=== PATIENT | male | born 1960 | race Caucasian/White ===

== ENCOUNTER 2017-07-13 06:23 | Day surgery (SDC) | payer BC ==
[2017-07-08 15:34] VITALS: BMI 23.2
[~2017-07-13 06:23] MED LIST: DEXAMETHASONE SOD PHOSPHATE 10 MG/ML 1 ML VIAL IV ONE; HEPARIN SODIUM,PORCINE 5,000 UNIT/ML 1 ML VIAL SQ ONE; HYDROmorphone 0.5 MG/0.5 ML SYRINGE IVP PRN; MIDAZOLAM 2 MG/2 ML VIAL IV PRN; ONDANSETRON 4 MG/2 ML VIAL IVP ONE; ceFAZolin IN SWFI 2 GM/20 ML SYRINGE IVP ONE
[2017-07-13] MEDS ORDERED: MORPHINE SULFATE 4 MG/ML SYRINGE IVP PRN ×2 (06:26→09:31)
[2017-07-13] MEDS: LACTATED RINGERS 1,000 ML IV SCH ×2 (07:16→07:17)
[2017-07-13] MEDS ORDERED: LIDOCAINE 1% 20 ML VIAL (10MG/ML) FOR IV START INTRADERMA ONE (07:17)
[2017-07-13] MEDS ORDERED: LIDOCAINE 1% 20 ML VIAL (10MG/ML) FOR IV START INTRAPLEUR ONE (07:18)
[2017-07-13] MEDS ORDERED: KETOROLAC 30 MG/ML 1 ML VIAL ONE (07:53)
[2017-07-13] MEDS ORDERED: MIDAZOLAM 2 MG/2 ML VIAL ONE (07:53)
[2017-07-13] MEDS ORDERED: LIDOCAINE 1% INJ 10MG/ML (20 ML MDV) ONE (07:53)
[2017-07-13] MEDS ORDERED: PROPOFOL 10 MG/ML 20 ML VIAL IV ONE (07:53)
[2017-07-13] MEDS ORDERED: GLYCOPYRROLATE 0.2 MG/ML 2 ML VIAL ONE (07:53)
[2017-07-13] MEDS ORDERED: SUCCINYLCHOLINE CHLORIDE 100 MG/5 ML SYR IV ONE (07:53)
[2017-07-13] MEDS ORDERED: NEOSTIGMINE 1 MG/ML 10 ML VIAL ONE (07:53)
[2017-07-13] MEDS ORDERED: ROCURONIUM BROMIDE 10 MG/ML 10 ML VIAL IV ONE (07:53)
[2017-07-13] MEDS ORDERED: fentaNYL (PF) 50 MCG/ML 2 ML AMP ONE (07:53)
[2017-07-13] MEDS ORDERED: HYDROmorphone (PF) 1 MG/ML ONE (07:53)
[2017-07-13] MEDS ORDERED: BUPIVACAINE (PF) 0.25% 30 ML VIAL SQ ONE ×2 (08:18)
[2017-07-13] MEDS ORDERED: LACTATED RINGERS 1,000 ML IV ONE ×3 (08:38)
[2017-07-13] MEDS ORDERED: HYDROcodone/APAP 5-325MG 1 EACH TAB PO PRN (09:31)
[2017-07-13] MEDS ORDERED: NALOXONE 0.4 MG/ML 1 ML VIAL IV PRN (09:31)
--- NOTE | 2017-07-13 09:34 | P.OP ---
Date of Procedure: 07/13/17 Procedure(s) Performed: PREOPERATIVE DIAGNOSIS: Right inguinal hernia POSTOPERATIVE DIAGNOSIS: Same PROCEDURE: Laparoscopic repair right inguinal hernia with the da [place] robot assistance with mesh SURGEON: Harris EBL: Minimal ANESTHESIA: General COMPLICATIONS: None OPERATIVE PROCEDURE: Patient was placed in the operating table in the supine position. The patient was placed under general anesthesia. The patient was then placed in lithotomy. The abdomen was prepped and draped in usual sterile fashion. A small curvilinear supraumbilical incision was made. The fascia was retracted anteriorly with Quincy forceps. The Veress needle was inserted. The saline drop test was normal. Insufflation took place to 15 mmHg. A 12 mm trocar was then inserted. 2 additional 8 mm trochars were placed in the right upper quadrant and left upper quadrant under visualization. The robotic arms were then brought in and docked into place. The fenestrated bipolar was used in the left arm and the laparoscopic izabela was utilized in the right arm. A 30 12 mm scope was used in the up position. The peritoneal cavity was inspected. The patient had a right direct inguinal hernia with no visible hernia on the left side. The peritoneum was incised in a horizontal fashion cephalad to the internal inguinal ring. Following that careful dissection of the preperitoneal space took place. This took place using electrocautery, sharp dissection but primarily blunt dissection. Visualization of the pubic tubercle and Dex's ligament took place medially. Full dissection took place laterally as well. The patient's hernia was small to moderate in size. The hernia sac was fully dissected. Once we had adequate space the 15 x 10 progrip mesh was advanced into the preperitoneal space and flattened out appropriately to cover all potential hernia sites. No sutures were used. The peritoneal defect was then closed using a locking 2-0 VLok suture. A single small defect in the peritoneum inferiorly was repaired using a dpxbkh-jp-lwjad 3-0 Vicryl stitch. The pneumoperitoneum was then evacuated. The fascia at the 12 mm site was closed using an 0 Vicryl ykiqyx-tj-ackjq suture. The skin of all 3 sites was closed using a 4-0 Monocryl stitch. Steri-Strips and sterile dressings were applied. DISPOSITION: Stable to recovery room
[2017-07-13 09:44] VITALS: TEMP 97.4
[2017-07-13 09:57] VITALS: RESP 16
[2017-07-13 12:06] VITALS: BP 121/75; PULSE 71
== END 2017-07-13 12:05 | disposition home or self-care (01) ==
LOC: OR 06:23
PROVIDERS: ATTEND Surgery
DX: K40.90 Unilateral inguinal hernia, without obstruction or gangrene, not specified as recurrent (principal); K21.9 Gastro-esophageal reflux disease without esophagitis; M72.0 Palmar fascial fibromatosis [Dupuytren]; G89.4 Chronic pain syndrome; L71.9 Rosacea, unspecified; M21.751 Unequal limb length (acquired), right femur; M19.071 Primary osteoarthritis, right ankle and foot; M19.90 Unspecified osteoarthritis, unspecified site; B35.4 Tinea corporis; F17.210 Nicotine dependence, cigarettes, uncomplicated; Z79.1 Long term (current) use of non-steroidal anti-inflammatories (NSAID); Z79.891 Long term (current) use of opiate analgesic; Z79.899 Other long term (current) drug therapy
CPT/HCPCS: 49650; S2900

== ENCOUNTER 2018-01-12 07:43 | Day surgery (SDC) | payer BC ==
[2018-01-09 10:31] VITALS: BMI 24.3
[~2018-01-12 07:43] MED LIST changes: -DEXAMETHASONE SOD PHOSPHATE 10 MG/ML 1 ML VIAL IV ONE; -HEPARIN SODIUM,PORCINE 5,000 UNIT/ML 1 ML VIAL SQ ONE; -HYDROmorphone 0.5 MG/0.5 ML SYRINGE IVP PRN; +LACTATED RINGERS 1,000 ML IV SCH; -MIDAZOLAM 2 MG/2 ML VIAL IV PRN; -ONDANSETRON 4 MG/2 ML VIAL IVP ONE; -ceFAZolin IN SWFI 2 GM/20 ML SYRINGE IVP ONE
[2018-01-12 08:12] VITALS: TEMP 98
[2018-01-12] MEDS ORDERED: LIDOCAINE 1% 20 ML VIAL (10MG/ML) FOR IV START INTRADERMA ONE (08:27)
[2018-01-12] MEDS ORDERED: PROPOFOL 10 MG/ML 20 ML VIAL IV ONE (09:01)
[2018-01-12] MEDS ORDERED: LIDOCAINE 1% INJ 10MG/ML (20 ML MDV) ONE (09:01)
[2018-01-12 09:33] VITALS: RESP 16
[2018-01-12 09:41] VITALS: PULSE 76
--- NOTE | 2018-01-12 09:41 | P.PCN ---
Date of Procedure: 01/12/18 Procedure(s) Performed: Procedure: Colonoscopy and biopsy. Preoperative diagnosis: Screening for neoplasia. Postoperative diagnosis: 1. Slight prominence the hepatic flexure fold that could represent early polyp, biopsied, but no large polyps or cancer. 2. Left sided diffuse diverticulosis with no evidence of acute diverticulitis or strictures. Preparation: HalfLytely prep. Sedation: Was provided by anesthesia. Brief clinical history: The patient is a 57-year-old male who is scheduled for this evaluation for screening for neoplasia age being his risk factor. He had a prior exam around 7 years ago. The patient denies abdominal pains, change in bowel habits or overt bleeding. History of stomach issues under control PPI. There is no history of anemia. Procedure: With the patient on his left lateral decubitus position and after informed consent and adequate sedation, the perianal area was inspected and it did not show any fissures or fistulas. There were no masses felt on digital rectal examination. The Olympus CFQ 160L video colonoscope was then inserted in the rectum in the usual fashion and advanced to the cecum. There was a slight prominence of a fold around the hepatic flexure that could represent an early polyp which I biopsied, but there were no polyps or tumors. The mucosa appeared healthy. There were multiple diverticular orifices seen scattered on the left side and sigmoid with no evidence of acute diverticulitis or strictures. I retroflexed the endoscope in the rectum before the endoscope was withdrawn. The patient tolerated the procedure well. Plan: The patient was reassured. Discussed dietary measures. I anticipate repeating this exam in 5 years. He will follow up with you as planned.
[2018-01-12 09:56] VITALS: BP 151/99
== END 2018-01-12 10:11 | disposition home or self-care (01) ==
LOC: ORWHC2ENDO 07:43
DX: Z12.11 Encounter for screening for malignant neoplasm of colon (principal); D12.3 Benign neoplasm of transverse colon; K57.30 Diverticulosis of large intestine without perforation or abscess without bleeding; M19.90 Unspecified osteoarthritis, unspecified site; Z87.891 Personal history of nicotine dependence; K21.9 Gastro-esophageal reflux disease without esophagitis; Z79.899 Other long term (current) drug therapy; Z79.891 Long term (current) use of opiate analgesic
CPT/HCPCS: 88305; 45380; J2001; J2704

== ENCOUNTER → 2018-06-16 | Outpatient (CLI) | payer BC ==
[2018-06-16 10:29] LABS: Basophils % (A) 1 %; Eosinophils # (A) 0.1 k/uL (0-0.7); Eosinophils % (A) 2 %; HCT 39.1 % (39.0-53.0); HGB 12.7 gm/dL (13.0-17.5); Lymphocytes # (A) 2.5 k/uL (1.0-4.8); Lymphocytes % (A) 42 %; MCH 27.8 pg (25.0-35.0); MCHC 32.5 g/dL (31.0-37.0); MCV 85.6 fL (80.0-100.0); Mean Platelet Volume 6.5; Monocytes # (A) 0.5 k/uL (0-1.0); Monocytes % (A) 8 %; Neutrophils # (A) 2.7 k/uL (1.3-7.7); Neutrophils % (A) 44 %; Platelet Count 276 k/uL (150-450); RBC 4.57 m/uL (4.30-5.90); RDW 13.3 % (11.5-15.5)
[2018-06-16 17:35] LABS: Hemoglobin A1C 5.4 % (4.0-6.0)
[2018-06-16 17:41] LABS: Albumin 4.3 g/dL (3.80-4.90); Albumin/Globulin Ratio 1.59 (1.60-3.17); Anion Gap 9.3 mmol/L (4.00-12.00); Calcium 9.4 mg/dL (8.7-10.3); Carbon Dioxide 25.7 mmol/L (21.6-31.8); Globulin 2.7 g/dL (1.6-3.3); LDL Cholesterol,Calculated 96.8 mg/dL (0.0-131.0); Potassium 4.6 mmol/L (3.5-5.5); Total Bilirubin 0.3 mg/dL (0.2-1.2); VLDL Calculation 39.2 mg/dL (5.00-40.00)
== END ==
LOC: LABWHC1 09:59
PROVIDERS: ATTEND Family Medicine
DX: I10 Essential (primary) hypertension (principal); Z79.899 Other long term (current) drug therapy
CPT/HCPCS: 36415; 80053; 80061; 83036; 84153; 84443; 85025

== ENCOUNTER → 2018-09-01 | Outpatient (CLI) | payer BC ==
[2018-09-01 16:52] LABS: ALT 56 U/L (10-49); AST 37 U/L (14-35); Albumin/Globulin Ratio 1.68 (1.60-3.17); Alkaline Phosphatase 90 U/L (41-126); Bilirubin, Conjugated <0.20 mg/dL (0.20-0.40); Globulin 2.5 g/dL (1.6-3.3); Total Bilirubin 0.4 mg/dL (0.3-1.2); Total Protein 6.7 g/dL (6.2-8.2)
[2018-09-01 17:21] LABS: Hepatitis A Antibody IgM Non-Reactive (Non-Reactive); Hepatitis B Core IgM Non-Reactive (Non-Reactive)
== END ==
LOC: LABWHC1 09:05
PROVIDERS: ATTEND Family Medicine
DX: I10 Essential (primary) hypertension (principal); Z79.899 Other long term (current) drug therapy
CPT/HCPCS: 36415; 80074; 80076

== ENCOUNTER → 2018-09-21 | Outpatient (CLI) | payer BC ==
--- NOTE | 2018-09-21 13:31 | US ---
EXAMINATION TYPE: US liver DATE OF EXAM: 09/21/2018 COMPARISON: CT from 2009. CLINICAL HISTORY: R74.0 LIVER ENZYMES ELEVATED. EXAM MEASUREMENTS: Liver Length: 13.7 cm Gallbladder Wall: 0.1 cm CBD: 0.2 cm Right Kidney: 9.3 Xx 3.8 x 5.2 cm Pancreas: Obscured by bowel gas Liver: Increased attenuation Gallbladder: small bright echo medial and inferior to gb not in gb Evidence for sonographic Nunez's sign: No CBD: wnl Right Kidney: wnl Pancreas is suboptimally evaluated on images saved secondary to shadowing from overlying bowel gas pe r technologist. Visualized liver is slightly heterogeneous without intrahepatic ductal dilatation. Ev aluation for focal masses is suboptimal due to the heterogeneity. Gallbladder seen without shadowing mobile gallstones. Limited images of right kidney show no gross hydronephrosis. IMPRESSION: Slight heterogeneous hyperechoic appearance of liver could reflect mild diffuse fatty inf iltration or underlying hepatocellular disease. Imaging guided random biopsy for tissue analysis can be performed if desired.
== END | disposition home or self-care (01) ==
LOC: RADUSWWP 08:52
PROVIDERS: ATTEND Family Medicine
DX: R93.2 Abnormal findings on diagnostic imaging of liver and biliary tract (principal); R74.8 Abnormal levels of other serum enzymes
CPT/HCPCS: 76705

== ENCOUNTER 2019-01-12 08:59 | Day surgery (SDC) | payer BC ==
[2019-01-10 10:22] VITALS: BMI 25.0
[~2019-01-12 08:59] MED LIST changes: +LIDOCAINE 1% 20 ML VIAL (10MG/ML) FOR IV START INTRADERMA PRN
[2019-01-12 09:24] VITALS: TEMP 98.1
[2019-01-12] MEDS ORDERED: PROPOFOL 10 MG/ML 20 ML VIAL IV ONE (09:55)
[2019-01-12] MEDS ORDERED: GLYCOPYRROLATE 0.2 MG/ML 2 ML VIAL ONE (09:55)
[2019-01-12] MEDS ORDERED: LIDOCAINE 1% INJ 10MG/ML (20 ML MDV) ONE (09:55)
--- NOTE | 2019-01-12 10:03 | P.GSHP ---
History of Present Illness H&P Date: 01/12/19 Chief Complaint: GERD 58-year-old male with history of GERD symptoms. Lately he has had some nighttime cough. No dysphagia. No pain. Takes omeprazole daily. Past Medical History Past Medical History: GERD/Reflux, Hypertension, Osteoarthritis (OA) Additional Past Medical History / Comment(s): arthritis rt heel History of Any Multi-Drug Resistant Organisms: None Reported Past Surgical History: Hernia Repair, Orthopedic Surgery, Tonsillectomy Additional Past Surgical History / Comment(s): surgery for ORIF fx rt femur- plates removed-screw remains and rt knee, colonoscopy Past Anesthesia/Blood Transfusion Reactions: No Reported Reaction Additional Past Anesthesia/Blood Transfusion Reaction / Comment(s): no hx blood transfusion Smoking Status: Former smoker - Past Family History Mother Family Medical History: No Reported History Medications and Allergies Home Medications Medication Instructions Recorded Confirmed Type Hydrocodone/Acetaminophen [[place] 1 tab PO HS PRN 07/08/17 01/12/19 History 7.5-325] Naproxen Sodium [Aleve] 220 mg PO BID PRN 07/08/17 01/12/19 History Omeprazole [PriLOSEC] 20 mg PO AC-BRKFST 07/08/17 01/12/19 History Cyclobenzaprine [Flexeril] 10 mg PO HS PRN 01/09/18 01/12/19 History Lisinopril 20 mg PO QAM 01/10/19 01/12/19 History Allergies Allergy/AdvReac Type Severity Reaction Status Date / Time No Known Allergies Allergy Verified 01/12/19 09:38 Surgical - Exam Vital Signs Temp Pulse Resp BP Pulse Ox 98.1 F 90 18 124/82 99 01/12/19 09:22 01/12/19 09:22 01/12/19 09:22 01/12/19 09:22 01/12/19 09:22 Physical exam: General: Well-developed, well-nourished HEENT: Normocephalic, sclerae nonicteric Abdomen: Nontender, nondistended Extremities: No edema Neuro: Alert and oriented Assessment and Plan (1) GERD (gastroesophageal reflux disease) Narrative/Plan: Will proceed with upper endoscopy Current Visit: Yes Status: Acute Code(s): K21.9 - GASTRO-ESOPHAGEAL REFLUX DISEASE WITHOUT ESOPHAGITIS SNOMED Code(s): 866263430
--- NOTE | 2019-01-12 10:11 | P.PCN ---
Date of Procedure: 01/12/19 Procedure(s) Performed: Preoperative Dx: GERD, night cough Postoperative Dx: Mild gastritis, small gastric polyps, hiatal hernia Procedure: EGD with Bx Anesthesia: Sedation Endoscopist: Dr. Iglesias Specimens: Antrum, gastric polyp Endoscopic Procedure: The patient was on the endoscopy table in the left decu bitus position. The Olympus gastroscope was inserted into the oropharynx and passed under direct visualization to the region of the third portion of the duodenum. From that point the scope was slowly withdrawn inspecting all surfaces carefully. There were no neoplastic inflammatory or polypoid lesions throughout the duodenum. The pylorus was widely patent. The stomach was carefully inspected. There was mild gastritis present. A biopsy of the antrum took place to rule out H. pylori. Patient was also noted to have small gastric polyps. The largest one was sampled using cold biopsy forceps. Retroflexion revealed a small the moderate sized hiatal hernia. GE junction was present 1.5- 2 cm above the hiatus. The esophagus was then carefully examined. There were no neoplastic inflammatory or polypoid lesions throughout the visualized esophagus. The patient was then taken to the recovery room in stable condition per anesthesia guidelines. Recommendations: Continue antireflux medications. Continue antireflux lifestyle modifications. Options of hiatal hernia will discuss further with the patient.
[2019-01-12 10:35] VITALS: BP 117/85; PULSE 93; RESP 18
== END 2019-01-12 10:51 | disposition home or self-care (01) ==
LOC: ORWHC2ENDO 08:59
PROVIDERS: ATTEND Surgery
DX: K31.7 Polyp of stomach and duodenum (principal); K29.50 Unspecified chronic gastritis without bleeding; K44.9 Diaphragmatic hernia without obstruction or gangrene; K21.9 Gastro-esophageal reflux disease without esophagitis; I10 Essential (primary) hypertension; M19.90 Unspecified osteoarthritis, unspecified site; Z87.891 Personal history of nicotine dependence; Z79.1 Long term (current) use of non-steroidal anti-inflammatories (NSAID); Z79.891 Long term (current) use of opiate analgesic; Z79.899 Other long term (current) drug therapy
CPT/HCPCS: 88305; 43239; J2001; J2704

== ENCOUNTER 2020-02-27 16:54 | Emergency (ER) | payer BC ==
[2020-02-27 17:26] VITALS: BP 108/76; PULSE 102; RESP 17; TEMP 98.4
--- NOTE | 2020-02-27 18:06 | XR ---
EXAMINATION TYPE: XR ankle complete LT DATE OF EXAM: 02/27/2020 COMPARISON: NONE HISTORY: Pain TECHNIQUE: 3 views FINDINGS: There is an Achilles calcaneal spur. Ankle mortise is anatomic. I see no fracture nor dislo cation. IMPRESSION: Calcaneal spurring. No fracture seen.
--- NOTE | 2020-02-27 18:07 | XR ---
EXAMINATION TYPE: XR knee complete LT DATE OF EXAM: 02/27/2020 COMPARISON: NONE HISTORY: Pain TECHNIQUE: 3 views FINDINGS: There is minor spurring on the patella. I see no fracture nor dislocation. Joint spaces are fairly normal. There is no sign of knee joint effusion. IMPRESSION: No acute abnormality of the left knee.
--- NOTE | 2020-02-27 18:38 | ED ---
Lower Extremity Injury HPI - General Chief Complaint: Extremity Injury, Lower Stated Complaint: Ankle injury Time Seen by Provider: 02/27/20 17:28 Source: patient Mode of arrival: wheelchair Limitations: no limitations - History of Present Illness Initial Comments: Patient is 59-year-old male presenting to the emergency department with a chief complaint of left leg pain. Patient states he had his leg sticking out of a cart when the foot caught the ground and he had an external rotation on the left leg. Patient reports most of the pain is located in the left ankle and knee. He denies any numbness or tingling. Does report pain with ambulation. Reports that rest alleviates the pain. States the pain is sharp with inhalation. Denies any numbness or tingling. This occurred about one hour prior to arrival. - Related Data Home Medications Medication Instructions Recorded Confirmed Hydrocodone/Acetaminophen [[place] 1 tab PO HS PRN 07/08/17 01/12/19 7.5-325] Naproxen Sodium [Aleve] 220 mg PO BID PRN 07/08/17 01/12/19 Omeprazole [PriLOSEC] 20 mg PO AC-BRKFST 07/08/17 01/12/19 Cyclobenzaprine [Flexeril] 10 mg PO HS PRN 01/09/18 01/12/19 lisinopriL 20 mg PO QAM 01/10/19 01/12/19 Allergies Allergy/AdvReac Type Severity Reaction Status Date / Time No Known Allergies Allergy Verified 01/12/19 09:38 Review of Systems ROS Statement: Those systems with pertinent positive or pertinent negative responses have been documented in the HPI. ROS Other: All systems not noted in ROS Statement are negative. Past Medical History Past Medical History: GERD/Reflux, Hypertension, Osteoarthritis (OA) Additional Past Medical History / Comment(s): arthritis rt heel History of Any Multi-Drug Resistant Organisms: None Reported Past Surgical History: Hernia Repair, Orthopedic Surgery, Tonsillectomy Additional Past Surgical History / Comment(s): surgery for ORIF fx rt femur- plates removed-screw remains and rt knee, colonoscopy Past Anesthesia/Blood Transfusion Reactions: No Reported Reaction Additional Past Anesthesia/Blood Transfusion Reaction / Comment(s): no hx blood transfusion Past Psychological History: No Psychological Hx Reported Smoking Status: Never smoker Past Alcohol Use History: None Reported Past Drug Use History: None Reported - Past Family History Mother Family Medical History: No Reported History General Exam Limitations: no limitations General appearance: alert, in no apparent distress Head exam: Present: atraumatic, normocephalic, normal inspection Eye exam: Present: normal appearance, PERRL, EOMI Pupils: Present: normal accommodation ENT exam: Present: normal exam, normal oropharynx, mucous membranes moist. Absent: TM's normal bilaterally, normal external ear exam Neck exam: Present: normal inspection, full ROM. Absent: tenderness Respiratory exam: Present: normal lung sounds bilaterally. Absent: respiratory distress, wheezes Cardiovascular Exam: Present: regular rate, normal rhythm, normal heart sounds Extremities exam: Present: normal inspection, full ROM, tenderness (Tenderness along the medial aspect of the left ankle. Also tenderness along the medial aspect of the knee. Negative anterior drawer. Positive Isma with external rotation.), normal capillary refill, other (+2 dorsalis pedis and posterior tibialis bilateral.). Absent: pedal edema, joint swelling, calf tenderness Back exam: Present: normal inspection, full ROM. Absent: tenderness, CVA tenderness (R), CVA tenderness (L) Neurological exam: Present: alert, oriented X3 Psychiatric exam: Present: normal affect, normal mood Skin exam: Present: warm, dry, intact, normal color Course Vital Signs 02/27/20 17:23 Temperature 98.4 F Pulse Rate 102 H Respiratory 17 Rate Blood Pressure 108/76 O2 Sat by Pulse 99 Oximetry Medical Decision Making - Medical Decision Making patient a 59-year-old male presenting to emergency Department with a chief complaint of left leg pain. On physical examination, patient has a positive Isma with external rotation suspecting an injury to the medial meniscus. Ankle examination is unremarkable. He is otherwise neurovascularly intact in the left extremity. X-rays of the knee and ankle are unremarkable. Patient was applied on the ankle and the knee. Advised the patient to follow with customer engineering specialist. He was advised to alternate between Tylenol and Motrin for pain control. He was also advised to apply ice compress to keep the leg elevated. Strict return parameters were thoroughly discussed the patient is understanding and agreeable. He was also given crutches. Case discussed with physician. Disposition Clinical Impression: Left knee sprain, Left ankle injury Disposition: HOME SELF-CARE Condition: Stable Instructions (If sedation given, give patient instructions): Ankle Sprain (ED), Meniscus Tear (ED) Additional Instructions: Follow-up with customer engineering specialist. Return to emergency department if symptoms worsen. Apply ice compress alternate between Tylenol and Motrin for pain control. Keep the foot elevated. Is patient prescribed a controlled substance at d/c from ED?: No Referrals: Marshall Wills MD [Primary Care Provider] - 1-2 days Trino Mercedes MD [STAFF PHYSICIAN] - 1-2 days Time of Disposition: 18:38
== END 2020-02-27 18:49 | disposition home or self-care (01) ==
LOC: EC 16:54
DX: S99.912A Unspecified injury of left ankle, initial encounter (principal); S83.92XA Sprain of unspecified site of left knee, initial encounter; K21.9 Gastro-esophageal reflux disease without esophagitis; I10 Essential (primary) hypertension; Z79.899 Other long term (current) drug therapy; W23.0XXA Caught, crushed, jammed, or pinched between moving objects, initial encounter
CPT/HCPCS: 99283

== ENCOUNTER 2024-03-18 09:46 | Emergency (ER) | payer BC ==
--- NOTE | 2024-03-18 10:03 | ED ---
Abdominal Pain HPI - General Chief Complaint: Abdominal Pain Stated Complaint: Abd pain Time Seen by Provider: 03/18/24 09:49 Source: patient, RN notes reviewed Mode of arrival: ambulatory Limitations: no limitations - History of Present Illness Initial Comments: 64-year-old male presents emergency department complaint abdominal pain. Patient is more in his mid abdomen. He states he suffers with reflux last 3 years but states that this feels different. Patient states pain is alleviating. She had prior hernia repair denies any prior appendectomy cholecystectomy admits to nausea without vomiting no change in bowel habits no dysuria. Patient states the pain is quite severe at this time. Denies chest pain or shortness of breath - Related Data Home Medications Medication Instructions Recorded Confirmed Hydrocodone/Acetaminophen [Noxen 1 tab PO HS PRN 07/08/17 01/12/19 7.5-325] Naproxen Sodium [Aleve] 220 mg PO BID PRN 07/08/17 01/12/19 Omeprazole [PriLOSEC] 20 mg PO AC-BRKFST 07/08/17 01/12/19 Cyclobenzaprine [Flexeril] 10 mg PO HS PRN 01/09/18 01/12/19 lisinopriL 20 mg PO QAM 01/10/19 01/12/19 Previous Rx's Medication Instructions Recorded Ondansetron Odt [Zofran Odt] 4 mg PO Q8HR PRN #10 tab 03/18/24 Allergies Allergy/AdvReac Type Severity Reaction Status Date / Time No Known Allergies Allergy Verified 03/18/24 09:49 Review of Systems ROS Statement: Those systems with pertinent positive or pertinent negative responses have been documented in the HPI. ROS Other: All systems not noted in ROS Statement are negative. Past Medical History Past Medical History: GERD/Reflux, Hypertension, Osteoarthritis (OA) Additional Past Medical History / Comment(s): arthritis rt heel History of Any Multi-Drug Resistant Organisms: None Reported Past Surgical History: Hernia Repair, Orthopedic Surgery, Tonsillectomy Additional Past Surgical History / Comment(s): surgery for ORIF fx rt femur- plates removed-screw remains and rt knee, colonoscopy Past Anesthesia/Blood Transfusion Reactions: No Reported Reaction Additional Past Anesthesia/Blood Transfusion Reaction / Comment(s): no hx blood transfusion Past Psychological History: No Psychological Hx Reported Smoking Status: Never smoker Past Alcohol Use History: None Reported Past Drug Use History: None Reported - Past Family History Mother Family Medical History: No Reported History General Exam Limitations: no limitations General appearance: alert, in no apparent distress Head exam: Present: atraumatic, normocephalic, normal inspection Eye exam: Present: normal appearance, PERRL, EOMI. Absent: scleral icterus, conjunctival injection, periorbital swelling Respiratory exam: Present: normal lung sounds bilaterally. Absent: respiratory distress, wheezes, rales, rhonchi, stridor Cardiovascular Exam: Present: regular rate, normal rhythm, normal heart sounds. Absent: systolic murmur, diastolic murmur, rubs, gallop, clicks GI/Abdominal exam: Present: soft, tenderness, normal bowel sounds. Absent: distended, guarding, rebound, rigid Back exam: Absent: CVA tenderness (R), CVA tenderness (L) Neurological exam: Present: alert, oriented X3 Course Vital Signs 03/18/24 03/18/24 03/18/24 09:47 12:00 13:30 Temperature 97.7 F 98.0 F Pulse Rate 76 68 68 Respiratory 18 16 16 Rate Blood Pressure 186/110 166/102 153/99 O2 Sat by Pulse 98 98 100 Oximetry Medical Decision Making - Medical Decision Making Was pt. sent in by a medical professional or institution ([facility], CODE NUMBER STAMPER, urgent c are, hospital, or shelter...) When possible be specific @ -No Did you speak to anyone other than the patient for history (EMS, parent, family, police, friend...)? What history was obtained from this source @ -No Did you review nursing and triage notes (agree or disagree)? Why? @ -I reviewed and agree with nursing and triage notes Were old charts reviewed (outside hosp., previous admission, EMS record, old EKG, old radiological studies, urgent care reports/EKG's, shelter records)? Report findings @ -No old charts were reviewed Differential Diagnosis (chest pain, altered mental status, abdominal pain women, abdominal pain men, vaginal bleeding, weakness, fever, dyspnea, syncope, h eadache, dizziness, GI bleed, back pain, seizure, CVA, palpatations, mental health, musculoskeletal)? @ -Differential Abdominal Pain Women: Appendicitis, Cholecystitis, diverticulosis, ischemic bowel, pancreatitis, hepatitis, UTI, gastroenteritis, AAA, incarcerated hernia, bowel obstruction, constipation, inflammatory bowel, hepatitis, peptic ulcer disease, splenic infarction, perforated viscus, vulvitis, ovarian torsion, PID, kidney stone, placenta abruption, this is not meant to be an all-inclusive list EKG interpreted by me (3pts min.). @ -None X-rays interpreted by me (1pt min.). @ -None done CT interpreted by me (1pt min.). @ -CT abdomen pelvis showing possible biliary sludge, possible mild colitis no other acute process U/S interpreted by me (1pt. min.). @ -Ultrasound gallbladder showing gallbladder stones and sludge no obstruction no wall thickening What testing was considered but not performed or refused? (CT, X-rays, U/S, labs)? Why? @ -None What meds were considered but not given or refused? Why? @ -None Did you discuss the management of the patient with other professionals (professionals i.e. , PA, CODE NUMBER STAMPER, lab, RT, psych nurse, social work faculty member, pattern generator operator, teacher, enforcement officer, mattress spring encaser)? Give summary @ -No Was smoking cessation discussed for >3mins.? @ -No Was critical care preformed (if so, how long)? @ -No Were there social determinants of health that impacted care today? How? (Homelessness, low income, unemployed, alcoholism, drug addiction, transportation, low edu. Level, literacy, decrease access to med. care, half-way, rehab)? @ -No Was there de-escalation of care discussed even if they declined (Discuss DNR or withdrawal of care, Hospice)? DNR status @ -No What co-morbidities impacted this encounter? (DM, HTN, Smoking, COPD, CAD, Cancer, CVA, ARF, Chemo, Hep., AIDS, mental health diagnosis, sleep apnea, morbid obesity)? @ -None Was patient admitted / discharged? Hospital course, mention meds given and route, prescriptions, significant lab abnormalities, going to OR and other pertinent info. @ -Discharge patient had mild pain after medications. Patient states he did feel improved patient updated on CT and ultrasound findings. I did offer admiss ion contacting surgeons patient declined states he is subcu and he feels point with calling for outpatient follow-up. Undiagnosed new problem with uncertain prognosis? @ -No Drug Therapy requiring intensive monitoring for toxicity (Heparin, Nitro, Insulin, Cardizem)? @ -No Were any procedures done? @ -No Diagnosis/symptom? @Abdominal pain, gallstones Acute, or Chronic, or Acute on Chronic? @ -Acute Uncomplicated (without systemic symptoms) or Complicated (systemic symptoms)? @ -Uncomplicated Side effects of treatment? @ -No Exacerbation, Progression, or Severe Exacerbation? @ -No Poses a threat to life or bodily function? How? (Chest pain, [place], [place], pneumonia, PE, COPD, DKA, ARF, appy, cholecystitis, CVA, Diverticulitis, Homicidal, Suicidal, threat to staff... and all critical care pts) @ -No - Lab Data Result diagrams: 03/18/24 10:12 03/18/24 10:12 Lab Results 03/18/24 03/18/24 03/18/24 Range/Units 10:12 10:12 10:12 WBC 14.8 H (3.8-10.6) k/uL RBC 4.88 (4.30-5.90) m/uL Hgb 13.7 (13.0-17.5) gm/dL Hct 42.6 (39.0-53.0) % MCV 87.2 (80.0-100.0) fL MCH 28.1 (25.0-35.0) pg MCHC 32.2 (31.0-37.0) g/dL RDW 13.3 (11.5-15.5) % Plt Count 342 (150-450) k/uL MPV 6.8 Neutrophils % 86 % Lymphocytes % 8 % Monocytes % 4 % Eosinophils % 0 % Basophils % 1 % Neutrophils # 12.7 H (1.3-7.7) k/uL Lymphocytes # 1.2 (1.0-4.8) k/uL Monocytes # 0.5 (0-1.0) k/uL Eosinophils # 0.1 (0-0.7) k/uL Basophils # 0.1 (0-0.2) k/uL Sodium 138 (137-145) mmol/L Potassium 4.7 (3.5-5.1) mmol/L Chloride 102 (98-107) mmol/L Carbon Dioxide 30 (22-30) mmol/L Anion Gap 6 mmol/L BUN 14 (9-20) mg/dL Creatinine 0.78 (0.66-1.25) mg/dL Est GFR (CKD-EPI)AfAm >90 (>60 ml/min/1.73 sqM) Est GFR (CKD-EPI)NonAf >90 (>60 ml/min/1.73 sqM) Glucose 120 H (74-99) mg/dL Plasma Lactic Acid Shane 1.0 (0.7-2.0) mmol/L Calcium 9.4 (8.4-10.2) mg/dL Total Bilirubin 0.6 (0.2-1.3) mg/dL AST 41 (17-59) U/L ALT 59 H (4-49) U/L Alkaline Phosphatase 85 (38-126) U/L Total Protein 8.3 H (6.3-8.2) g/dL Albumin 4.8 (3.5-5.0) g/dL Lipase 86 (23-300) U/L Urine Color Urine Appearance (Clear) Urine pH (5.0-8.0) Ur Specific Roberta (1.001-1.035) Urine Protein (Negative) Urine Glucose (UA) (Negative) Urine Ketones (Negative) Urine Blood (Negative) Urine Nitrite (Negative) Urine Bilirubin (Negative) Urine Urobilinogen (<2.0) mg/dL Ur Leukocyte Esterase (Negative) 03/18/24 Range/Units 11:45 WBC (3.8-10.6) k/uL RBC (4.30-5.90) m/uL Hgb (13.0-17.5) gm/dL Hct (39.0-53.0) % MCV (80.0-100.0) fL MCH (25.0-35.0) pg MCHC (31.0-37.0) g/dL RDW (11.5-15.5) % Plt Count (150-450) k/uL MPV Neutrophils % % Lymphocytes % % Monocytes % % Eosinophils % % Basophils % % Neutrophils # (1.3-7.7) k/uL Lymphocytes # (1.0-4.8) k/uL Monocytes # (0-1.0) k/uL Eosinophils # (0-0.7) k/uL Basophils # (0-0.2) k/uL Sodium (137-145) mmol/L Potassium (3.5-5.1) mmol/L Chloride (98-107) mmol/L Carbon Dioxide (22-30) mmol/L Anion Gap mmol/L BUN (9-20) mg/dL Creatinine (0.66-1.25) mg/dL Est GFR (CKD-EPI)AfAm (>60 ml/min/1.73 sqM) Est GFR (CKD-EPI)NonAf (>60 ml/min/1.73 sqM) Glucose (74-99) mg/dL Plasma Lactic Acid Shane (0.7-2.0) mmol/L Calcium (8.4-10.2) mg/dL Total Bilirubin (0.2-1.3) mg/dL AST (17-59) U/L ALT (4-49) U/L Alkaline Phosphatase (38-126) U/L Total Protein (6.3-8.2) g/dL Albumin (3.5-5.0) g/dL Lipase (23-300) U/L Urine Color Colorless Urine Appearance Clear (Clear) Urine pH 7.0 (5.0-8.0) Ur Specific Roberta 1.018 (1.001-1.035) Urine Protein Negative (Negative) Urine Glucose (UA) Negative (Negative) Urine Ketones Negative (Negative) Urine Blood Negative (Negative) Urine Nitrite Negative (Negative) Urine Bilirubin Negative (Negative) Urine Urobilinogen <2.0 (<2.0) mg/dL Ur Leukocyte Esterase Negative (Negative) Disposition Clinical Impression: Gallstones, Abdominal pain Disposition: HOME SELF-CARE Condition: Stable Instructions (If sedation given, give patient instructions): Gallstones (ED) Additional Instructions: Please return to the Emergency Department if symptoms worsen or any other concerns. Prescriptions: Ondansetron Odt [Zofran Odt] 4 mg PO Q8HR PRN #10 tab PRN Reason: Nausea Is patient prescribed a controlled substance at d/c from ED?: No Referrals: Marshall Wills MD [Primary Care Provider] - 1-2 days Jennie Soriano MD [STAFF PHYSICIAN] - 1-2 days Time of Disposition: 13:16
[2024-03-18] MEDS: KETOROLAC 15 MG/ML 1 ML VIAL IVP STA ×2 (10:08→13:28)
[2024-03-18] MEDS: METOCLOPRAMIDE 5 MG/ML 2 ML VIAL IVP STA (10:08)
[2024-03-18] MEDS: PANTOPRAZOLE 40 MG/10 ML VIAL IVP STA (10:09)
[2024-03-18] MEDS: SODIUM CHLORIDE 0.9% 1,000 ML IV STA (10:11)
[2024-03-18 10:44] LABS: Basophils # (A) 0.1 k/uL (0-0.2); Basophils % (A) 1 %; Eosinophils # (A) 0.1 k/uL (0-0.7); Eosinophils % (A) 0 %; HCT 42.6 % (39.0-53.0); HGB 13.7 gm/dL (13.0-17.5); Lymphocytes # (A) 1.2 k/uL (1.0-4.8); Lymphocytes % (A) 8 %; MCH 28.1 pg (25.0-35.0); MCHC 32.2 g/dL (31.0-37.0); MCV 87.2 fL (80.0-100.0); Mean Platelet Volume 6.8; Monocytes # (A) 0.5 k/uL (0-1.0); Monocytes % (A) 4 %; Neutrophils # (A) 12.7 k/uL (1.3-7.7); Neutrophils % (A) 86 %; Platelet Count 342 k/uL (150-450); RBC 4.88 m/uL (4.30-5.90); RDW 13.3 % (11.5-15.5); WBC 14.8 k/uL (3.8-10.6)
[2024-03-18 10:56] LABS: ALT 59 U/L (4-49); AST 41 U/L (17-59); African American GFR (CKD) >90 (>60 ml/min/1.73 sqM); Albumin 4.8 g/dL (3.5-5.0); Alkaline Phosphatase 85 U/L (38-126); Anion Gap 6 mmol/L; Blood Urea Nitrogen 14 mg/dL (9-20); Calcium 9.4 mg/dL (8.4-10.2); Carbon Dioxide 30 mmol/L (22-30); Chloride 102 mmol/L (98-107); Glucose 120 mg/dL (74-99); Lipase 86 U/L (23-300); Non-African American GFR(CKD) >90 (>60 ml/min/1.73 sqM); Potassium 4.7 mmol/L (3.5-5.1); Sodium 138 mmol/L (137-145); Total Bilirubin 0.6 mg/dL (0.2-1.3); Total Protein 8.3 g/dL (6.3-8.2)
--- NOTE | 2024-03-18 11:45 | CT ---
EXAMINATION TYPE: CT abdomen pelvis w con DATE OF EXAM: 03/18/2024 11:19 AM COMPARISON: 01/06/2010 CLINICAL INDICATION: Male, 64 years old with history of abdominal pain; Abdominal pain TECHNIQUE: Axial CT abdomen pelvis w con;Sagittal and coronal reformats were created on a separate w orkstation. Contrast used:100 ml mL of Isovue 300 with IV Contrast, (none if empty) Oral contrast used: without Oral Contrast (none if empty) CT DLP: 1008.7 mGycm, Automated exposure control for dose reduction was used. FINDINGS: LOWER CHEST: Unremarkable ABDOMEN LIVER: Unremarkable GALLBLADDER AND BILE DUCTS: There is subtle increased density in the gallbladder lumen. Milliliters d istended. PANCREAS: Unremarkable. SPLEEN: Unremarkable. ADRENAL GLANDS: Unremarkable. KIDNEYS AND URETERS: No evidence of hydronephrosis or renal calculus. The ureters are unremarkable. PELVIS BLADDER: No evidence for wall thickening or mass given limitations of exam. REPRODUCTIVE: Prostate is enlarged in size measuring 4.7 cm in transverse dimension. ABDOMEN & PELVIS STOMACH AND BOWEL: Mild multilevel thickening of the sigmoid colon with some engorgement of the vasa recta. No evidence of bowel obstruction. The appendix is normal. Scattered colonic diverticula. PERITONEUM/RETROPERITONEUM: No evidence of pneumoperitoneum or free fluid. VASCULATURE: No evidence of aortic aneurysm. MUSCULOSKELETAL: No acute osseous abnormalities LYMPH NODES: No gross evidence for lymphadenopathy. SOFT TISSUE/ABDOMINAL WALL: Unremarkable IMPRESSION: 1. Mild inflammation changes around the sigmoid colon. Correlate for mild colitis. 2. Mild distention of the gallbladder with increased densities layering which are very subtle. Corre late for right upper biliary sludge 3. Colonic diverticulosis. 4. The appendix is normal. 5. No obstructive uropathy or renal calculus. 6. Prostatomegaly correlate serum PSA. 7. Hepatic steatosis. [facility], , 03/18/2024 11:42 AM
[2024-03-18 11:52] LABS: Appearance,Urine Clear (Clear); Bilirubin,Urine Negative (Negative); Blood,Urine Negative (Negative); Color,Urine Colorless; Glucose,Urine (UA) Negative (Negative); Ketones,Urine Negative (Negative); Leukocyte Esterase,Urine Negative (Negative); Nitrite,Urine Negative (Negative); Protein,Urine Negative (Negative); Specific Gravity,Urine 1.018 (1.001-1.035); Urobilinogen,Urine <2.0 mg/dL (<2.0)
[2024-03-18 12:05] VITALS: PULSE 68; RESP 16
--- NOTE | 2024-03-18 13:01 | US ---
EXAMINATION TYPE: US gallbladder DATE OF EXAM: 03/18/2024 COMPARISON: Same day CT CLINICAL INDICATION: Male, 64 years old with history of pain; Pain TECHNIQUE: Grayscale and color Doppler imaging of the right upper quadrant was performed. FINDINGS: EXAM MEASUREMENTS: Liver Length: 14.8 cm Gallbladder Wall: 0.2 cm CBD: 0.4 cm Right Kidney: 9.3 x 5.0 x 5.6 cm ELECTRONIC ORGAN TECHNICIAN NOTES:Pt very gassy limiting views Pancreas: Obscured by bowel gas Liver: Heterogeneous Gallbladder: Multiple gallstones with sludge near neck, wall not thickened Evidence for sonographic Nunez's sign: Yes CBD: wnl Right Kidney: No evidence of hydro IMPRESSION: 1. Cholelithiasis with biliary sludge. No evidence for wall thickening. 2. Heterogenous liver correlate with serum markers for hepatocellular disease. [facility], , 03/18/2024 12:59 PM
[2024-03-18 13:32] VITALS: BP 153/99; TEMP 98
== END 2024-03-18 13:45 | disposition home or self-care (01) ==
LOC: EC 09:46
DX: K80.20 Calculus of gallbladder without cholecystitis without obstruction (principal)
CPT/HCPCS: 36415; 80053; 83605; 83690; 85025; 81003; 76705; 74177; 99284; 96374; 96375 ×2; 96376; 96361; J2765; J1885; Q9967; J2470

== ENCOUNTER 2024-03-22 10:01 | Inpatient (IN) | payer BC ==
--- NOTE | 2024-03-22 10:17 | ED ---
Abdominal Pain HPI - General Stated Complaint: abd pain/gallbladder issues Time Seen by Provider: 03/22/24 10:17 Source: patient, RN notes reviewed - History of Present Illness Initial Comments: This is a 64-year-old male presenting to the emergency department with referral from his primary care provider for chief complaint of right upper quadrant abdominal pain and nausea. Patient was recently evaluated in the emergency department and was informed that he has biliary colic and was scheduled to follow-up outpatient with general surgeon. At patient's evaluation today with primary care providers noted to have severe right upper quadrant abdominal pain and nausea. Surgical abdominal history of hernia repair. He denies chest pain, shortness of breath, difficulty breathing, diarrhea. Denies hematemesis or coffee-ground emesis. Endorses chills. Has a scheduled appointment with general surgeon, Dr. Soriano, in upcoming weeks. - Related Data Home Medications Medication Instructions Recorded Confirmed Hydrocodone/Acetaminophen [[place] 1 tab PO BID PRN 07/08/17 03/22/24 7.5-325] Omeprazole [PriLOSEC] 20 mg PO BID 07/08/17 03/22/24 Cyclobenzaprine [Flexeril] 10 mg PO HS 01/09/18 03/22/24 lisinopriL 20 mg PO DAILY 01/10/19 03/22/24 Albuterol Sulfate/Budesonide 2 puff INHALATION RT-Q4H PRN 03/22/24 03/22/24 [Airsupra 90-80 Mcg Inhaler] DULoxetine HCL [Cymbalta] 60 mg PO HS 03/22/24 03/22/24 Systane Preservative Free 1 drop BOTH EYES QID PRN 03/22/24 03/22/24 Allergies Allergy/AdvReac Type Severity Reaction Status Date / Time No Known Allergies Allergy Verified 03/22/24 13:53 Review of Systems ROS Statement: Those systems with pertinent positive or pertinent negative responses have been documented in the HPI. ROS Other: All systems not noted in ROS Statement are negative. Past Medical History Past Medical History: GERD/Reflux, Hypertension, Osteoarthritis (OA) Additional Past Medical History / Comment(s): arthritis rt heel History of Any Multi-Drug Resistant Organisms: None Reported Past Surgical History: Hernia Repair, Orthopedic Surgery, Tonsillectomy Additional Past Surgical History / Comment(s): surgery for ORIF fx rt femur- plates removed-screw remains and rt knee, colonoscopy Past Anesthesia/Blood Transfusion Reactions: No Reported Reaction Additional Past Anesthesia/Blood Transfusion Reaction / Comment(s): no hx blood transfusion Past Psychological History: No Psychological Hx Reported Smoking Status: Never smoker Past Alcohol Use History: None Reported Past Drug Use History: None Reported - Past Family History Mother Family Medical History: No Reported History General Exam General appearance: alert, in no apparent distress ENT exam: Present: normal exam, mucous membranes moist Neck exam: Present: normal inspection. Absent: tenderness, meningismus, lymphadenopathy Respiratory exam: Present: normal lung sounds bilaterally. Absent: respiratory distress, wheezes, rales, rhonchi, stridor Cardiovascular Exam: Present: normal rhythm, tachycardia, normal heart sounds. Absent: systolic murmur, diastolic murmur, rubs, gallop, clicks GI/Abdominal exam: Present: soft, tenderness (RUQ, + murphys sign), normal bowel sounds. Absent: distended, guarding, rebound, rigid Extremities exam: Present: normal inspection, full ROM, normal capillary refill. Absent: tenderness, pedal edema, joint swelling, calf tenderness Back exam: Present: normal inspection Skin exam: Present: warm, dry, intact, normal color. Absent: rash Course Vital Signs 03/22/24 03/22/24 03/22/24 10:19 11:18 13:36 Temperature 100.2 F H 100.0 F H 99.0 F Pulse Rate 119 H 103 H 104 H Respiratory 20 18 18 Rate Blood Pressure 142/87 141/94 133/91 O2 Sat by Pulse 98 97 95 Oximetry Medical Decision Making - Medical Decision Making Was pt. sent in by a medical professional or institution (, PA, EMERGENCY DEPARTMENT TECHNICIAN, urgent care, hospital, or skilled nursing...) When possible be specific @ -Patient was advised by primary care provider to report to the emergency department for further evaluation Did you speak to anyone other than the patient for history (EMS, parent, family, police, friend...)? What history was obtained from this source @ -No Did you review nursing and triage notes (agree or disagree)? Why? @ -I reviewed and agree with nursing and triage notes Were old charts reviewed (outside hosp., previous admission, EMS record, old EKG, old radiological studies, urgent care reports/EKG's, skilled nursing records)? Report findings @ -Reviewed patient's previous emergency department visit CAT scan where it revealed cholelithiasis with no evidence of acute cholecystitis Differential Diagnosis (chest pain, altered mental status, abdominal pain women, abdominal pain men, vaginal bleeding, weakness, fever, dyspnea, syncope, headache, dizziness, GI bleed, back pain, seizure, CVA, palpatations, mental health, musculoskeletal)? @ -Differential Abdominal Pain Men: Appendicitis, cholecystitis, diverticulosis, ischemic bowel, pancreatitis, hepatitis, UTI, gastroenteritis, AAA, incarcerated hernia, bowel obstruction, constipation, inflammatory bowel, hepatitis, peptic ulcer disease, splenic infarction, perforated viscus, testicular torsion, this is not meant to be an all-inclusive list EKG interpreted by me (3pts min.). @ -Completed at 1046 sinus tachycardia with a ventricular rate of 106, MN interval 160, QRS 95, QTc 375. X-rays interpreted by me (1pt min.). @ -None done CT interpreted by me (1pt min.). @ -None done U/S interpreted by me (1pt. min.). @ -US the gallbladder reveals cholelithiasis with a sonographic Nunez sign and thickened gallbladder wall with pericholecystic fluid suggesting acute cholecystitis What testing was considered but not performed or refused? (CT, X-rays, U/S, labs)? Why? @ -None What meds were considered but not given or refused? Why? @ -None Did you discuss the management of the patient with other professionals (professionals i.e. , PA, EMERGENCY DEPARTMENT TECHNICIAN, lab, RT, psych nurse, social worker clinical, dining room helper, teacher, general service officer, family preservation caseworker)? Give summary @ -Spoke with patient's scheduled general surgeon, Dr. Soriano, who recommends that the patient be started on IV antibiotics and follow a clear liquid diet until midnight where he is placed on n.p.o. with scheduled for surgery tomorrow. Patient will be admitted to internal medicine, Dr. Wills. Was smoking cessation discussed for >3mins.? @ -No Was critical care preformed (if so, how long)? @ -No Were there social determinants of health that impacted care today? How? (Homelessness, low income, unemployed, alcoholism, drug addiction, transportation, low edu. Level, literacy, decrease access to med. care, long-term, re hab)? @ -No Was there de-escalation of care discussed even if they declined (Discuss DNR or withdrawal of care, Hospice)? DNR status @ -No What co-morbidities impacted this encounter? (DM, HTN, Smoking, COPD, CAD, Cancer, CVA, ARF, Chemo, Hep., AIDS, mental health diagnosis, sleep apnea, morbid obesity)? @ -None Was patient admitted / discharged? Hospital course, mention meds given and route, prescriptions, significant lab abnormalities, going to OR and other pertinent info. @ -Admitted. 64-year-old male with right upper quadrant abdominal pain. On my evaluation the patient noted to be in mild distress due to pain. On palpation he has a positive Nunez sign. There is also mild enlargement of the right upper quadrant on palpation. He is noted to be febrile tachycardic with a temperature of 100.2 and heart rate of 119. Patient's EKG reveals sinus rhythm. He is symptomatically treated with IV fluids and pain medication pending ultrasound imaging and laboratories studies. Patient has a leukocytosis of 21.6 and elevated neutrophils of 18.4, hyponatremia with sodium 131. Amylase and lipase within normal limits, lactic acid nonelevated at 1.0. is also provided with gram of Tylenol for his fever. This all concerning for acute cholecystitis. Patient will be admitted to internal medicine with general surgery on consult. Patient will be on a clear liquid diet and n.p.o. after midnight. Additionally, blood cultures were obtained and patient will be started on broad-spectrum antibiotics for sepsis. discussed with Dr. Ramirez Undiagnosed new problem with uncertain prognosis? @ -No Drug Therapy requiring intensive monitoring for toxicity (Heparin, Nitro, Insulin, Cardizem)? @ -No Were any procedures done? @ -No Diagnosis/symptom? @ - cholecystitis, sepsis Acute, or Chronic, or Acute on Chronic? @ -acute Uncomplicated (without systemic symptoms) or Complicated (systemic symptoms)? @ -complicated Side effects of treatment? @ -No Exacerbation, Progression, or Severe Exacerbation? @ -No Poses a threat to life or bodily function? How? (Chest pain, [place], [place], pneumonia, PE, COPD, DKA, ARF, appy, cholecystitis, CVA, Diverticulitis, Homicidal, Suicidal, threat to staff... and all critical care pts) @ -No - Lab Data Result diagrams: 03/22/24 10:37 03/22/24 10:37 Lab Results 03/22/24 03/22/24 03/22/24 Range/Units 10:37 10:37 10:37 WBC 21.6 H (3.8-10.6) k/uL RBC 4.60 (4.30-5.90) m/uL Hgb 13.1 (13.0-17.5) gm/dL Hct 39.3 (39.0-53.0) % MCV 85.5 (80.0-100.0) fL MCH 28.5 (25.0-35.0) pg MCHC 33.4 (31.0-37.0) g/dL RDW 13.0 (11.5-15.5) % Plt Count 384 (150-450) k/uL MPV 7.5 Neutrophils % 85 % Lymphocytes % 4 % Monocytes % 6 % Eosinophils % 0 % Basophils % 0 % Neutrophils # 18.4 H (1.3-7.7) k/uL Lymphocytes # 0.9 L (1.0-4.8) k/uL Monocytes # 1.4 H (0-1.0) k/uL Eosinophils # 0.1 (0-0.7) k/uL Basophils # 0.0 (0-0.2) k/uL Sodium 131 L (137-145) mmol/L Potassium 4.1 (3.5-5.1) mmol/L Chloride 95 L (98-107) mmol/L Carbon Dioxide 26 (22-30) mmol/L Anion Gap 10 mmol/L BUN 16 (9-20) mg/dL Creatinine 0.76 (0.66-1.25) mg/dL Est GFR (CKD-EPI)AfAm >90 (>60 ml/min/1.73 sqM) Est GFR (CKD-EPI)NonAf >90 (>60 ml/min/1.73 sqM) Glucose 111 H (74-99) mg/dL Plasma Lactic Acid Shane 1.0 (0.7-2.0) mmol/L Calcium 9.2 (8.4-10.2) mg/dL Total Bilirubin 1.1 (0.2-1.3) mg/dL AST 37 (17-59) U/L ALT 54 H (4-49) U/L Alkaline Phosphatase 108 (38-126) U/L Total Protein 7.7 (6.3-8.2) g/dL Albumin 4.2 (3.5-5.0) g/dL Amylase 51 (30-110) U/L Lipase 56 (23-300) U/L Disposition Clinical Impression: Acute cholecystitis, Sepsis Disposition: ADMITTED IP TO THIS [facility] Condition: Serious Decision to Admit Reason: Admit from EC Decision Date: 03/22/24
[2024-03-22] MEDS: HYDROmorphone 0.5 MG/0.5 ML SYRINGE IVP STA (10:48)
[2024-03-22 10:53] LABS: Basophils % (A) 0 %; Eosinophils # (A) 0.1 k/uL (0-0.7); Eosinophils % (A) 0 %; HCT 39.3 % (39.0-53.0); HGB 13.1 gm/dL (13.0-17.5); Lymphocytes # (A) 0.9 k/uL (1.0-4.8); Lymphocytes % (A) 4 %; MCH 28.5 pg (25.0-35.0); MCHC 33.4 g/dL (31.0-37.0); MCV 85.5 fL (80.0-100.0); Mean Platelet Volume 7.5; Monocytes # (A) 1.4 k/uL (0-1.0); Monocytes % (A) 6 %; Neutrophils # (A) 18.4 k/uL (1.3-7.7); Neutrophils % (A) 85 %; Platelet Count 384 k/uL (150-450); WBC 21.6 k/uL (3.8-10.6)
[2024-03-22 11:01] LABS: ALT 54 U/L (4-49); AST 37 U/L (17-59); African American GFR (CKD) >90 (>60 ml/min/1.73 sqM); Albumin 4.2 g/dL (3.5-5.0); Alkaline Phosphatase 108 U/L (38-126); Amylase 51 U/L (30-110); Anion Gap 10 mmol/L; Blood Urea Nitrogen 16 mg/dL (9-20); Calcium 9.2 mg/dL (8.4-10.2); Carbon Dioxide 26 mmol/L (22-30); Chloride 95 mmol/L (98-107); Glucose 111 mg/dL (74-99); Lipase 56 U/L (23-300); Non-African American GFR(CKD) >90 (>60 ml/min/1.73 sqM); Potassium 4.1 mmol/L (3.5-5.1); Sodium 131 mmol/L (137-145); Total Bilirubin 1.1 mg/dL (0.2-1.3); Total Protein 7.7 g/dL (6.3-8.2)
--- NOTE | 2024-03-22 11:27 | US ---
EXAMINATION TYPE: US gallbladder DATE OF EXAM: 03/22/2024 COMPARISON: NONE CLINICAL INDICATION: Male, 64 years old with history of RUQ ab pain, N, hx gallstones; RUQ pain, hist ory of gallstones TECHNIQUE: Grayscale and color Doppler imaging of the right upper quadrant was performed. FINDINGS: EXAM MEASUREMENTS: Liver Length: 16.7 cm Gallbladder Wall: 0.5 cm Right Kidney: 9.1 x 4.6 x 5.0 cm COMPUTER BUILDER NOTES:*Limitations due to large amount of overlying bowel gas Pancreas: Obscured by bowel gas Liver: limited evaluation, only seen intercostally, heterogeneous Gallbladder: multiple stones, sludge, thickened GB wall, possible pericholecystic fluid Evidence for sonographic Nunez's sign: yes CBD: Obscured by overlying bowel gas Right Kidney: no evidence of hydronephrosis IMPRESSION: 1. Cholelithiasis. There is a sonographic Nunez's sign, thickened gallbladder wall and pericholecyst ic fluid suggesting acute cholecystitis. [facility], , 03/22/2024 11:24 AM
[2024-03-22] MEDS: SODIUM CHLORIDE 0.9% 1,000 ML IV STA (11:50)
[2024-03-22] MEDS: ACETAMINOPHEN TAB 500 MG TAB PO STA (11:51)
[2024-03-22] MEDS ORDERED: NALOXONE 0.4 MG/ML 1 ML VIAL IV PRN (12:45)
[2024-03-22] MEDS ORDERED: ACETAMINOPHEN TAB 325 MG TAB PO PRN (12:45)
[2024-03-22] MEDS ORDERED: IBUPROFEN 400 MG TAB PO PRN (12:45)
[2024-03-22] MEDS: SODIUM CHLORIDE 0.9% 1,000 ML IV ONE (13:12)
[2024-03-22] MEDS: SODIUM CHLORIDE 0.9% 1,000 ML IV SCH (13:12)
[2024-03-22] MEDS ORDERED: ARTIFICIAL TEARS-HYPROMELLOSE DROPS 15 ML BTL BOTH EYES PRN (14:01)
[2024-03-22] MEDS ORDERED: ALBUTEROL NEBULIZED 2.5 MG/3 ML INHALATION PRN (14:01)
[2024-03-22] MEDS ORDERED: BUDESONIDE 0.5 MG/2 ML NEBU INHALATION PRN (14:10)
--- NOTE | 2024-03-22 15:07 | P.GSCN ---
History of Present Illness Consult date: 03/22/24 History of present illness: CHIEF COMPLAINT: Right upper quadrant abdominal pain HISTORY OF PRESENT ILLNESS: This is a 64-year-old male who presented last with complaints of right upper quadrant abdominal pain that started on Tuesday around 5 AM. He reports symptoms continue to increase he came into the ER on Tuesday and had ultrasound completed, showing cholelithiasis with sludge. He was referred to follow-up with surgeon outpatient. Patient reports having vomiting and decreased appetite. The pain does not radiate. Pain has worsened he came back to the ER today. Prior abdominal surgery includes a hernia repair. He has been febrile tachycardic with elevated white count. Gallbladder ultrasound had shown evidence of gallstones, pericholecystic fluid and positive Nunez sign suggesting acute cholecystitis. PAST MEDICAL HISTORY: See below PAST SURGICAL HISTORY: See below MEDICATIONS: See below ALLERGIES: See below SOCIAL HISTORY: No illicit drug use. REVIEW OF SYSTEMS: CONSTITUTIONAL: Denies fever or chills. HEENT: Denies blurred vision, vision changes, or eye pain. Denies hemoptysis CARDIOVASCULAR: Denies chest pain or pressure. RESPIRATORY: No shortness of breath. GASTROINTESTINAL: See HPI for pertinent findings HEMATOLOGIC: Denies bleeding disorders. GENITOURINARY: Denies any blood in urine or increased urinary frequency. SKIN: Denies pruitis. Denies rash. PHYSICAL EXAM: VITAL SIGNS: Reviewed GENERAL: Well-developed in no acute distress. HEENT: No sclera icterus. Extraocular movements grossly intact. Moist buccal mucosa. Head is atraumatic, normocephalic. No nasal drainage. ABDOMEN: Soft. Nondistended. Upper quadrant tenderness with palpation NEUROLOGIC: Alert and oriented. Cranial nerves II through XII grossly intact. LABORATORY DATA: WBC 21.6 Hgb 13.1 platelets 384 Sodium 131 potassium 4.1 creatinine 0.76 Lactic acid 1.0 Total bili 1.1 AST 37 ALT 54 alk phos 108 lipase 56 IMAGING: Gallbladder ultrasound with cholelithiasis. There is sonographic Nunez sign, thickened gallbladder wall and pericholecystic fluid suggesting acute cholecystitis ASSESSMENT: 1. Acute cholecystitis PLAN: -Patient scheduled for laparoscopic cholecystectomy today -Keep patient n.p.o. -Continue IV antibiotics -Continue IV fluids -Fluid bolus ordered -Continue pain management Physician Protein Purification Scientist note has been reviewed by physician. Signing provider agrees with the documented findings, assessment, and plan of care. I have personally seen and examined the patient, reviewed the SLEEVE SEWER /PAs history, exam and MDM and agree with the assessment and plan as written. Based on total visit time, I have performed more than 50% of the visit. As above: Patient with acute calculus cholecystitis. Options reviewed with mukesh mcghee. Will proceed with laparoscopic, possible open cholecystectomy at this time. Risks of bleeding, infection, bile leak, bile duct injury, retained common bile duct stone, trocar injury, conversion to an open procedure, hernia, anesthesia related complications were reviewed. The patient understands and wishes to proceed. Past Medical History Past Medical History: GERD/Reflux, Hypertension, Osteoarthritis (OA) Additional Past Medical History / Comment(s): arthritis rt heel History of Any Multi-Drug Resistant Organisms: None Reported Past Surgical History: Hernia Repair, Orthopedic Surgery, Tonsillectomy Additional Past Surgical History / Comment(s): surgery for ORIF fx rt femur- plates removed-screw remains and rt knee, colonoscopy Past Anesthesia/Blood Transfusion Reactions: No Reported Reaction Additional Past Anesthesia/Blood Transfusion Reaction / Comm: no hx blood transfusion Past Psychological History: No Psychological Hx Reported Smoking Status: Never smoker Past Alcohol Use History: None Reported Past Drug Use History: None Reported - Past Family History Mother Family Medical History: No Reported History Medications and Allergies Home Medications Medication Instructions Recorded Confirmed Type Hydrocodone/Acetaminophen [[place] 1 tab PO BID PRN 07/08/17 03/22/24 History 7.5-325] Omeprazole [PriLOSEC] 20 mg PO BID 07/08/17 03/22/24 History Cyclobenzaprine [Flexeril] 10 mg PO HS 01/09/18 03/22/24 History lisinopriL 20 mg PO DAILY 01/10/19 03/22/24 History Albuterol Sulfate/Budesonide 2 puff INHALATION RT-Q4H PRN 03/22/24 03/22/24 History [Airsupra 90-80 Mcg Inhaler] DULoxetine HCL [Cymbalta] 60 mg PO HS 03/22/24 03/22/24 History Systane Preservative Free 1 drop BOTH EYES QID PRN 03/22/24 03/22/24 History Allergies Allergy/AdvReac Type Severity Reaction Status Date / Time No Known Allergies Allergy Verified 03/22/24 13:53 Surgical - Exam Vital Signs Temp Pulse Resp BP Pulse Ox 100.2 F H 119 H 20 142/87 98 03/22/24 10:19 03/22/24 10:19 03/22/24 10:19 03/22/24 10:19 03/22/24 10:19 Results - Labs 03/22/24 10:37 03/22/24 10:37 Abnormal Lab Results - Last 24 Hours (Table) 03/22/24 03/22/24 Range/Units 10:37 10:37 WBC 21.6 H (3.8-10.6) k/uL Neutrophils # 18.4 H (1.3-7.7) k/uL Lymphocytes # 0.9 L (1.0-4.8) k/uL Monocytes # 1.4 H (0-1.0) k/uL Sodium 131 L (137-145) mmol/L Chloride 95 L (98-107) mmol/L Glucose 111 H (74-99) mg/dL ALT 54 H (4-49) U/L Diabetes panel 03/22/24 Range/Units 10:37 Sodium 131 L (137-145) mmol/L Potassium 4.1 (3.5-5.1) mmol/L Chloride 95 L (98-107) mmol/L Carbon Dioxide 26 (22-30) mmol/L BUN 16 (9-20) mg/dL Creatinine 0.76 (0.66-1.25) mg/dL Glucose 111 H (74-99) mg/dL Calcium 9.2 (8.4-10.2) mg/dL AST 37 (17-59) U/L ALT 54 H (4-49) U/L Alkaline Phosphatase 108 (38-126) U/L Total Protein 7.7 (6.3-8.2) g/dL Albumin 4.2 (3.5-5.0) g/dL Calcium panel 03/22/24 Range/Units 10:37 Calcium 9.2 (8.4-10.2) mg/dL Albumin 4.2 (3.5-5.0) g/dL Pituitary panel 03/22/24 Range/Units 10:37 Sodium 131 L (137-145) mmol/L Potassium 4.1 (3.5-5.1) mmol/L Chloride 95 L (98-107) mmol/L Carbon Dioxide 26 (22-30) mmol/L BUN 16 (9-20) mg/dL Creatinine 0.76 (0.66-1.25) mg/dL Glucose 111 H (74-99) mg/dL Calcium 9.2 (8.4-10.2) mg/dL Adrenal panel 03/22/24 Range/Units 10:37 Sodium 131 L (137-145) mmol/L Potassium 4.1 (3.5-5.1) mmol/L Chloride 95 L (98-107) mmol/L Carbon Dioxide 26 (22-30) mmol/L BUN 16 (9-20) mg/dL Creatinine 0.76 (0.66-1.25) mg/dL Glucose 111 H (74-99) mg/dL Calcium 9.2 (8.4-10.2) mg/dL Total Bilirubin 1.1 (0.2-1.3) mg/dL AST 37 (17-59) U/L ALT 54 H (4-49) U/L Alkaline Phosphatase 108 (38-126) U/L Total Protein 7.7 (6.3-8.2) g/dL Albumin 4.2 (3.5-5.0) g/dL
[2024-03-22] MEDS: AMPICILLIN-SULBACTAM 1.5 GM in SODIUM CHLORIDE 0.9% 50 ML IVPB SCH (15:21)
[2024-03-22] MEDS: PIPERACILLIN-TAZOBACTAM 3.375 GM in SODIUM CHLORIDE 0.9% 100 ML IVPB SCH (15:38)
[2024-03-22] MEDS: IV FLUID CONTINUATION 1,000 ML IV ONE (15:49)
[2024-03-22] MEDS: ONDANSETRON 4 MG/2 ML VIAL IVP STA (16:06)
[2024-03-22] MEDS: HEPARIN SODIUM,PORCINE 5,000 UNIT/ML 1 ML VIAL SQ STA (16:07)
[2024-03-22] MEDS ORDERED: ROCURONIUM 10 MG/ML (5 ML VIAL) IV ONE (16:40)
[2024-03-22] MEDS ORDERED: MIDAZOLAM 2 MG/2 ML VIAL ONE (16:40)
[2024-03-22] MEDS ORDERED: ALBUMIN HUMAN 5% (25gm) 500 ML VIAL IVPB ONE (16:40)
[2024-03-22] MEDS ORDERED: SUGAMMADEX SODIUM 200 MG/2 ML SDV IV ONE (16:40)
[2024-03-22] MEDS ORDERED: LABETALOL 5 MG/ML VIAL MDV ONE (16:40)
[2024-03-22] MEDS ORDERED: LIDOCAINE 1% INJ 10MG/ML (20 ML MDV) ONE (16:40)
[2024-03-22] MEDS ORDERED: KETOROLAC 15 MG/ML 1 ML VIAL ONE (16:40)
[2024-03-22] MEDS ORDERED: SUCCINYLCHOLINE CHLORIDE 200 MG/10 ML VIAL IV ONE (16:40)
[2024-03-22] MEDS ORDERED: HYDROmorphone (PF) 1 MG/ML ONE (16:40)
[2024-03-22] MEDS ORDERED: fentaNYL (PF) 50 MCG/ML 2 ML AMP ONE (16:40)
[2024-03-22] MEDS ORDERED: PROPOFOL 10 MG/ML 20 ML VIAL IV ONE (16:40)
[2024-03-22] MEDS: LIDOCAINE 1%-EPI 1:100,000 20 ML VIAL SQ ONE ×3 (17:01→17:06)
[2024-03-22] MEDS: LACTATED RINGERS 1,000 ML IV ONE ×3 (18:06→19:01)
[2024-03-22] MEDS: IPRATROPIUM-ALBUTEROL 3 ML NEB INHALATION SCH (18:24)
--- NOTE | 2024-03-22 19:39 | P.OP ---
Date of Procedure: 03/22/24 Preoperative Diagnosis: Intraoperative bleeding Postoperative Diagnosis: Same. Procedure(s) Performed: Suture ligature control of bleeding venous vessel. Anesthesia: BASIA Surgeon: Tim Rodriguez Thai Masseur #1: Hollis Iglesias Estimated Blood Loss (ml): 0 Pathology: none sent Condition: stable Indications for Procedure: Patient is a 62-year-old male who was undergoing a cholecystectomy under the direction of Dr. Upton. Bleeding was experienced which required conversion to an open procedure. Dr. Iglesias had skillfully controlled the bleeding point with a right angle clamp however was concerned that the bleeding would not be controlled if the clamp were to be removed and vascular surgical consultation was requested to help obtain and maintain permanent control of bleeding. Description of Procedure: The amari hepatis was evaluated. A right angle clamp was noted coming off what would otherwise appear to be a venous structure. A 5-0 Prolene suture was utilized to place a U-stitch around the right ankle clamp and the clamp was carefully removed and then not secured. No bleeding occurred. There is no other points of bleeding identified and with this finding the case was returned to Dr. Iglesias.
--- NOTE | 2024-03-22 20:32 | P.OP ---
Date of Procedure: 03/22/24 Procedure(s) Performed: PREOPERATIVE DIAGNOSIS: Acute gangrenous calculus cholecystitis POSTOPERATIVE DIAGNOSIS: Same PROCEDURE: Attempted laparoscopic cholecystectomy converted to open SURGEON: Harris EBL: 300 cc ANESTHESIA: Gen. COMPLICATIONS: Bleeding from portal vein requiring suture closure at base of c ystic vein OPERATIVE PROCEDURE: The patient was brought and placed on the operating room table in the supine position. The patient was placed under general anesthesia at that time. The abdomen was prepped and draped in the usual sterile fashion. A small vertical infraumbilical incision was made. The fascia was grasped with the Walt forceps. The fascia was retracted anteriorly. The Veress needle was advanced into the peritoneal cavity. The saline drop test was normal. Insufflation took place up to 15 mmHg. A 5 mm optical trocar was advanced and the peritoneal cavity. 2 additional 5 mm trochars were placed in the right upper quadrant under direct visualization. A 12 mm trocar was advanced into the epigastric incision site. There was somewhat dense adhesions between the omentum and transverse colon to the markedly inflamed gallbladder. Blunt dissection ensued sweeping the adhesions inferiorly. The gallbladder was quite tense. An opening was made in the fundus of the gallbladder and the contents were evacuated. Hydrops was noted. Further retraction of the gallbladder superiorly took place. As I was bluntly dissecting the gallbladder away from the adhesions a larger area of gangrenous necrosis involving the medial aspect of the gallbladder superior to the infundibulum was identified and there was a hole there where there were gallstones emanating from that. There was significant inflammatory changes in the lower aspect of the gallbladder approaching the infundibulum. I could not see appropriate structures and we converted to an open procedure at that time. An incision was made between our trocar site superiorly using the scalpel. The subcutaneous fat was divided using cautery. The abdominal musculature was divided with cautery as well. The Bookwalter retractor was utilized. The patient's gallbladder again was able to be visualized as being gangrenous and significantly enlarged. I removed the gallbladder from the liver bed using a combination of blunt dissection and cautery. As we approached the infundibulum the right angle was used to ligate small vessels entering into do the infundibulum. These were divided using clips. As I identified what appeared to represent the cystic artery and vein this area was clipped and divided on the specimen side. As I was moving the gallbladder inferiorly I identified quick bleeding from a large venous structure. A clamp was quickly placed with minimal blood loss. This was left in place while the cystic duct was addressed. I followed the gallbladder until it narrowed down into the cystic duct. The cystic duct was then divided using 2 separate 0 silk sutures. The specimen was cut on the specimen side and passed off. I then inspected our clamp that was on the area of bleeding. I attempted to place a right angle beneath this area by gently lifting our Bel clamp. In doing so I once again visualized venous bleeding which was able to be again controlled using the right angle clamp. At that point I felt that having another pair of hands from a surgical standpoint was beneficial. I spoke with our vascular surgeon on-call by phone. Unfortunately he was 45 minutes away but stated he would come to assist with this procedure. In the meanwhile a arterial line was placed in the left radial artery. A central line was placed. Type and screen was performed and 2 units of crossmatched blood was brought into the room. A warming device was placed over the lower body. When our vascular surgery colleague entered the case a 5-0 Prolene U-stitch was placed beneath the clamp and this was carefully tied down as the right angle clamp was removed. No bleeding was identified. Area was irrigated and manipulated slightly without any evidence of any bleeding. I did place Floseal over that area precautionary. The Bookwalter retractor was removed. A drain was brought into the abdomen from the right mid abdomen and placed in the gallbladder fossa. The area had been thoroughly irrigated numerous times with saline. The fascia was closed in 2 layers using a running double-stranded #1 PDS suture. The subcutaneous layer was closed after irrigation using 2-0 Vicryl sutures. Skin was closed using eduardo. Sterile dressings were applied. Sponge and isthmic counts were correct. DISPOSITION: Spoke with the patient's in the recovery room after the procedure. We discussed the conversion to an open procedure. I did have the nursing staff notify the patient's family that we had opened during the surgery. I notified them that we had slightly more bleeding than usual but that we mainly had a delay while we were waiting for surgical assistance in the form of our vascular surgery colleagues. Patient will go to the ICU since that was our plan during the procedure with his arterial line and central line in place. Anticipate removing those in the morning as long as the patient continues to do well. A Anderw catheter was also placed at the completion of the surgery. All questions answered.
[2024-03-22 20:53] LABS: Basophils % (A) 0 %; Eosinophils # (A) 0.1 k/uL (0-0.7); Eosinophils % (A) 0 %; HCT 30.1 % (39.0-53.0); Lymphocytes # (A) 1.2 k/uL (1.0-4.8); Lymphocytes % (A) 6 %; MCH 28.8 pg (25.0-35.0); MCHC 33.3 g/dL (31.0-37.0); MCV 86.5 fL (80.0-100.0); Mean Platelet Volume 6.7; Monocytes # (A) 1.2 k/uL (0-1.0); Monocytes % (A) 6 %; Neutrophils # (A) 16.6 k/uL (1.3-7.7); Neutrophils % (A) 84 %; Platelet Count 308 k/uL (150-450); RBC 3.48 m/uL (4.30-5.90); RDW 12.9 % (11.5-15.5); WBC 19.6 k/uL (3.8-10.6)
[2024-03-22 20:56] LABS: African American GFR (CKD) >90 (>60 ml/min/1.73 sqM); Anion Gap 8 mmol/L; Blood Urea Nitrogen 10 mg/dL (9-20); Calcium 7.9 mg/dL (8.4-10.2); Carbon Dioxide 23 mmol/L (22-30); Chloride 101 mmol/L (98-107); Glucose 123 mg/dL (74-99); Non-African American GFR(CKD) >90 (>60 ml/min/1.73 sqM); Potassium 3.7 mmol/L (3.5-5.1); Sodium 132 mmol/L (137-145)
--- NOTE | 2024-03-22 21:04 | XR ---
EXAMINATION TYPE: XR chest 1V portable DATE OF EXAM: 03/22/2024 8:49 PM COMPARISON: 01/06/2010 CLINICAL INDICATION: Male, 64 years old with history of line placement, TECHNIQUE: XR chest 1V portable view(s) obtained. FINDINGS: The heart size is upper limits of normal. The pulmonary vasculature is normal. The lungs are clear. Right central venous catheter is place with the tip in the distal superior vena cava right atrial cheryl ction. IMPRESSION: 1. No acute pulmonary process. 2. Right central venous catheter with the tip in the distal superior vena cava right atrial junction. [facility], , 03/22/2024 9:02 PM
[2024-03-22 21:26] LABS: Glucose,Whole Blood 123 mg/dL (70-110)
[2024-03-22] MEDS: DULoxetine HCL 60 MG CAPSULE.DR PO SCH (22:11)
[2024-03-22] MEDS: HYDROcodone/APAP 5-325MG 1 EACH TAB PO PRN (22:17)
[2024-03-23] MEDS: HYDROmorphone 0.5 MG/0.5 ML SYRINGE IVP PRN (00:25)
[2024-03-23] MEDS: HYDROmorphone 2 MG/ML 1 ML SYRINGE IVP PRN (03:09)
--- NOTE | 2024-03-23 03:33 | HP ---
HISTORY AND PHYSICAL HISTORY OF PRESENT ILLNESS: A 64-year-old white male, who was admitted with acute cholecystitis, right upper quadrant pain over the past week. He had an abnormal gallbladder test at the hospital a couple of days ago. He has had severe pain, cannot keep solids or liquids down and has severe right upper quadrant pain out of proportional. He cannot walk around or keep any food down. He is admitted with acute cholecystitis with leukocytosis of 24 and right upper quadrant pain that Infectious Disease and Surgery is consulted. He is placed on IV antibiotics. 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 History of asthma/COPD, started on antibiotics. REVIEW OF SYSTEMS: A 14-point review of systems otherwise negative. He has positive Nunez sign and gallbladder ultrasound, thickened gallbladder wall, pericholecystic fluid suggestive for cholecystitis. Possible surgery in the morning. Home medications have been reordered. Medications reviewed. ALLERGIES: Reviewed. EKG shows sinus tach, no ischemia. PHYSICAL EXAMINATION: GI: He has guarding, right upper quadrant tenderness, unable to move or ambulate with severe right upper quadrant pain, guarding, rebound. CARDIOVASCULAR: S1, S2. LUNGS: Transmitted upper sounds. HEENT: Pupils equal, round, reactive. NEUROLOGIC: Cranial nerves intact. PSYCH: Fair mood and affect. ASSESSMENT: Acute cholecystitis with possible cholangitis. IV antibiotics. Dr. Castaneda is consulted for possible gallbladder surgery in the next day or so. Prognosis guarded. Ambulate as tolerated. Please see further orders. MMODL / IJN: [id number] /
[2024-03-23 03:40] LABS: Basophils % (A) 0 %; Eosinophils # (A) 0.1 k/uL (0-0.7); Eosinophils % (A) 0 %; HCT 30.2 % (39.0-53.0); HGB 10.1 gm/dL (13.0-17.5); Lymphocytes # (A) 0.7 k/uL (1.0-4.8); Lymphocytes % (A) 4 %; MCH 29.1 pg (25.0-35.0); MCHC 33.5 g/dL (31.0-37.0); MCV 87.1 fL (80.0-100.0); Mean Platelet Volume 7.5; Monocytes # (A) 1.1 k/uL (0-1.0); Monocytes % (A) 6 %; Neutrophils # (A) 15.3 k/uL (1.3-7.7); Neutrophils % (A) 86 %; Platelet Count 294 k/uL (150-450); RBC 3.47 m/uL (4.30-5.90); RDW 12.8 % (11.5-15.5); WBC 17.7 k/uL (3.8-10.6)
[2024-03-23 03:51] LABS: ALT 56 U/L (4-49); AST 56 U/L (17-59); African American GFR (CKD) >90 (>60 ml/min/1.73 sqM); Albumin 3.1 g/dL (3.5-5.0); Alkaline Phosphatase 73 U/L (38-126); Anion Gap 5 mmol/L; Blood Urea Nitrogen 9 mg/dL (9-20); Calcium 7.7 mg/dL (8.4-10.2); Carbon Dioxide 23 mmol/L (22-30); Chloride 103 mmol/L (98-107); Glucose 110 mg/dL (74-99); Non-African American GFR(CKD) >90 (>60 ml/min/1.73 sqM); Potassium 3.8 mmol/L (3.5-5.1); Sodium 131 mmol/L (137-145); Total Bilirubin 0.9 mg/dL (0.2-1.3); Total Protein 5.8 g/dL (6.3-8.2)
[2024-03-23] MEDS ORDERED: Potassium Replacement Protocol 1 EACH MISC MISCELLANE PRN (03:57)
[2024-03-23] MEDS: PANTOPRAZOLE 40 MG TABLET PO SCH (05:03)
[2024-03-23] MEDS: POTASSIUM CHLORIDE ER 20 MEQ TAB.ER PO SCH (05:03)
[2024-03-23] MEDS: lisinopriL 20 MG TAB PO SCH (09:06)
--- NOTE | 2024-03-23 12:15 | P.PN ---
Subjective Progress Note Date: 03/23/24 SURGICAL PROGRESS NOTE CHIEF COMPLAINT: Gangrenous calculus cholecystitis HISTORY OF PRESENT ILLNESS: Patient is postop day #1 attempted laparoscopic cholecystectomy converted to open. Patient evaluated by vascular surgery intraoperatively for suture ligature for control of bleeding venous vessel. Remedios vidal currently in the ICU for monitoring. Patient reports his pain is controlled. Denies any nausea or vomiting. Tolerated the clear liquids. No bowel activity. He is mildly tachycardic. Hemoglobin stable at 10.1. WBC is down from 19-17. SYLVIE drain with 30 mL serosanguineous output. PHYSICAL EXAM: VITAL SIGNS: Reviewed. GENERAL: Well-developed in no acute distress. ABDOMEN: Soft. Mildly distended. Incision sites clean dry and intact. Mild tenderness at incision sites. NEUROLOGIC: Alert and oriented. Cranial nerves II through XII grossly intact. ASSESSMENT: 1. Acute gangrenous calculus cholecystitis PLAN: -Continue clear liquid diet -Continue pain management -Incentive spirometer ordered -Continue antibiotics -Continue IV fluids -GI prophylaxis Protonix and DVT prophylaxis subcu heparin Physician Mentally Retarded Teacher note has been reviewed by physician. Signing provider agrees with the documented findings, assessment, and plan of care. I have personally seen and examined the patient, reviewed the [employer] /PAs history, exam and MDM and agree with the assessment and plan as written. Based on total visit time, I have performed more than 50% of the visit. As above: Patient complaining of discomfort. Labs noted and stable. SYLVIE drain serosanguineous. Patient with urinary retention. Agree with replacing Andrew catheter. Abdominal binder. Continue analgesics. Will add Toradol tomorrow. Objective - Vital Signs Vital signs: Vital Signs Temp 99 F 03/23/24 11:30 Pulse 104 H 03/23/24 12:00 Resp 12 03/23/24 12:00 BP 143/94 03/23/24 12:00 Pulse Ox 96 03/23/24 12:00 FiO2 Intake & Output 03/22/24 03/23/24 03/23/24 18:59 06:59 18:59 Intake Total 2400 1955 1350 Output Total 1600 0 Balance 2400 355 1350 Weight 77.111 kg 81.6 kg Intake: IV 2400 200 Intake, IV Titration 675 450 Amount Sodium Chloride 0.9% 1, 675 450 000 ml @ 75 mls/hr IV . [id number] [facility] Rx#:[id number] Oral 1080 900 Output: Drainage 50 Right Abdomen 50 Urine 1200 0 Estimated Blood Loss 350 ABP, PAP, CO, CI - Last Documented Arterial Blood Pressure 154/73 - Labs CBC & Chem 7: 03/23/24 03:26 03/23/24 03:26 Labs: Abnormal Lab Results - Last 24 Hours (Table) 03/22/24 03/22/24 03/22/24 Range/Units 18:04 20:18 20:18 WBC 19.6 H (3.8-10.6) k/uL RBC 3.48 L (4.30-5.90) m/uL Hgb 10.0 L D (13.0-17.5) gm/dL Hct 30.1 L (39.0-53.0) % Neutrophils # 16.6 H (1.3-7.7) k/uL Lymphocytes # (1.0-4.8) k/uL Monocytes # 1.2 H (0-1.0) k/uL Sodium 132 L (137-145) mmol/L Creatinine 0.63 L (0.66-1.25) mg/dL Glucose 123 H (74-99) mg/dL POC Glucose (mg/dL) (70-110) mg/dL Calcium 7.9 L (8.4-10.2) mg/dL ALT (4-49) U/L Total Protein (6.3-8.2) g/dL Albumin (3.5-5.0) g/dL Crossmatch See Detail 03/22/24 03/23/24 03/23/24 Range/Units 21:24 03:26 03:26 WBC 17.7 H (3.8-10.6) k/uL RBC 3.47 L (4.30-5.90) m/uL Hgb 10.1 L (13.0-17.5) gm/dL Hct 30.2 L (39.0-53.0) % Neutrophils # 15.3 H (1.3-7.7) k/uL Lymphocytes # 0.7 L (1.0-4.8) k/uL Monocytes # 1.1 H (0-1.0) k/uL Sodium 131 L (137-145) mmol/L Creatinine 0.57 L (0.66-1.25) mg/dL Glucose 110 H (74-99) mg/dL POC Glucose (mg/dL) 123 H (70-110) mg/dL Calcium 7.7 L (8.4-10.2) mg/dL ALT 56 H (4-49) U/L Total Protein 5.8 L (6.3-8.2) g/dL Albumin 3.1 L (3.5-5.0) g/dL Crossmatch
--- NOTE | 2024-03-23 13:05 | P.CNPUL ---
History of Present Illness Consult date: 03/23/24 History of present illness: Patient is a 64-year-old male status post attempted laparoscopic cholecystectomy converted to open cholecystectomy on 03/22/2024. It was complicated by bleeding portal vein requiring suture closure at the base of the cystic vein. During the procedure a central line and arterial line were subsequently placed. Intraoperative blood loss was approximately 300 cc. He received no blood products. He was extubated in recovery. His preoperative hemoglobin was 13.1, postoperative hemoglobin was 10.0. He is currently sitting up in a chair s aturating 92% on room air. Today, WBCs 17.7, hemoglobin 10.1, platelets 294, sodium 131, potassium 3.8, BUN 9, creatinine 0.57. He is hemodynamically stable, not on pressors. He is receiving normal saline at 75 cc per hour. Currently receving IV Zosyn. He endorses surgical site pain but no other significant complaints today. Review of Systems All systems: negative Constitutional: Denies chills, Denies fever Respiratory: Denies cough Gastrointestinal: Reports abdominal pain Past Medical History Past Medical History: GERD/Reflux, Hypertension, Osteoarthritis (OA) Additional Past Medical History / Comment(s): arthritis rt heel History of Any Multi-Drug Resistant Organisms: None Reported Past Surgical History: Hernia Repair, Orthopedic Surgery, Tonsillectomy Additional Past Surgical History / Comment(s): surgery for ORIF fx rt femur- plates removed-screw remains and rt knee, colonoscopy Past Anesthesia/Blood Transfusion Reactions: No Reported Reaction Additional Past Anesthesia/Blood Transfusion Reaction / Comment(s): no hx blood transfusion Past Psychological History: Depression Smoking Status: Former smoker Past Alcohol Use History: None Reported Past Drug Use History: None Reported - Past Family History Mother Family Medical History: No Reported History Medications and Allergies Home Medications Medication Instructions Recorded Confirmed Type Hydrocodone/Acetaminophen [Calvin 1 tab PO BID PRN 07/08/17 03/22/24 History 7.5-325] Omeprazole [PriLOSEC] 20 mg PO BID 07/08/17 03/22/24 History Cyclobenzaprine [Flexeril] 10 mg PO HS 01/09/18 03/22/24 History lisinopriL 20 mg PO DAILY 01/10/19 03/22/24 History Albuterol Sulfate/Budesonide 2 puff INHALATION RT-Q4H PRN 03/22/24 03/22/24 History [Airsupra 90-80 Mcg Inhaler] DULoxetine HCL [Cymbalta] 60 mg PO HS 03/22/24 03/22/24 History Systane Preservative Free 1 drop BOTH EYES QID PRN 03/22/24 03/22/24 History Allergies Allergy/AdvReac Type Severity Reaction Status Date / Time No Known Allergies Allergy Verified 03/22/24 13:53 Physical Exam Vitals: Vital Signs Temp Pulse Pulse Resp BP BP Pulse Ox 03/23/24 07:00 108 H 18 133/90 92 L 03/23/24 06:00 108 H 23 136/95 90 L 03/23/24 05:00 102 H 18 136/95 98 03/23/24 04:00 105 H 15 97 03/23/24 03:00 101 H 27 H 98 03/23/24 02:00 94 21 98 03/23/24 01:00 93 19 99 03/23/24 00:21 85 21 99 03/23/24 00:00 99 F 84 20 100 03/22/24 23:00 86 21 100 03/22/24 22:30 86 20 149/89 98 03/22/24 22:00 81 18 153/95 98 03/22/24 21:07 85 16 140/81 98 03/22/24 20:52 83 16 147/85 98 03/22/24 20:37 81 16 136/80 96 03/22/24 20:22 84 16 141/83 95 03/22/24 20:07 97.8 F 98 16 130/88 94 L 03/22/24 15:55 97.0 F L 95 16 134/79 97 03/22/24 15:10 98.9 F 84 18 135/85 96 03/22/24 13:36 99.0 F 104 H 18 133/91 95 03/22/24 11:18 100.0 F H 103 H 18 141/94 97 03/22/24 10:19 100.2 F H 119 H 20 142/87 98 Intake and Output 03/22/24 03/23/24 03/23/24 22:59 06:59 14:59 Intake Total 3215 1140 75 Output Total 950 650 Balance 2265 490 75 Intake: IV 2600 Intake, IV Titration 75 600 75 Amount Sodium Chloride 0.9% 1, 75 600 75 000 ml @ 75 mls/hr IV . [id number] [facility] Rx#:[id number] Oral 540 540 Output: Drainage 50 Right Abdomen 50 Urine 600 600 Estimated Blood Loss 350 Other: Weight 77.111 kg 81.6 kg ABP, PAP, CO, CI - Last 8 Hours Arterial Blood Pressure 140/73 Arterial Blood Pressure 148/72 Arterial Blood Pressure 137/74 Arterial Blood Pressure 141/74 Arterial Blood Pressure 166/82 Arterial Blood Pressure 165/84 Arterial Blood Pressure 151/74 Arterial Blood Pressure 167/82 Arterial Blood Pressure 163/78 - Constitutional General appearance: average body habitus, no acute distress - EENT Eyes: EOMI, normal appearance - Neck Neck: normal ROM - Respiratory Respiratory: bilateral: CTA - Cardiovascular Rhythm: regular Heart sounds: normal: S1, S2 - Gastrointestinal General gastrointestinal: absent bowel sounds Localized gastrointestinal: tender: RUQ (surgical pain/tenderness) - Integumentary Integumentary: normal - Neurologic Neurologic: CNII-XII intact - Psychiatric Psychiatric: A&O x's 3, appropriate affect Results - Laboratory Findings CBC and BMP: 03/23/24 03:26 03/23/24 03:26 Abnormal lab findings: Abnormal Labs 03/22/24 03/22/24 03/22/24 10:37 10:37 18:04 WBC 21.6 H RBC Hgb Hct Neutrophils # 18.4 H Lymphocytes # 0.9 L Monocytes # 1.4 H Sodium 131 L Chloride 95 L Creatinine Glucose 111 H POC Glucose (mg/dL) Calcium ALT 54 H Total Protein Albumin Crossmatch See Detail 03/22/24 03/22/24 03/22/24 20:18 20:18 21:24 WBC 19.6 H RBC 3.48 L Hgb 10.0 L D Hct 30.1 L Neutrophils # 16.6 H Lymphocytes # Monocytes # 1.2 H Sodium 132 L Chloride Creatinine 0.63 L Glucose 123 H POC Glucose (mg/dL) 123 H Calcium 7.9 L ALT Total Protein Albumin Crossmatch 03/23/24 03/23/24 03:26 03:26 WBC 17.7 H RBC 3.47 L Hgb 10.1 L Hct 30.2 L Neutrophils # 15.3 H Lymphocytes # 0.7 L Monocytes # 1.1 H Sodium 131 L Chloride Creatinine 0.57 L Glucose 110 H POC Glucose (mg/dL) Calcium 7.7 L ALT 56 H Total Protein 5.8 L Albumin 3.1 L Crossmatch Assessment and Plan Assessment: Acute gangrenous calculus cholecystitis, status post attempted laparoscopic cholecystectomy converted to open cholecystectomy. Surgery was complicated by bleeding from the portal vein requiring suture closure at the base of the cystic vein. Hypertension History of GERD History of osteoarthritis History of depression Plan: Continue IV Zosyn Continue with pain control Monitor hemodynamics Continue IV Protonix Remove central line and arterial line Consider downgrading if patient remains hemodynamically stable
--- NOTE | 2024-03-23 13:52 | P.CNPUL ---
History of Present Illness Consult date: 03/23/24 Chief complaint: Acute gangrenous cholecystitis History of present illness: 03/23/2024, the patient is being seen for a consultation in the intensive care unit. The patient had a complicated cholecystectomy yesterday for an acute gangrenous cholecystitis. Initially, the procedure was attempted to be laparoscopic and it was converted to open. The patient during the procedure encountered a laceration of the portal vein that was clamped. The area was inspected by vascular surgery and the bleeding was essentially controlled. Ultimately, the wound was closed in a SYLVIE drain was placed and the patient was transferred to the to the intensive care unit after being extubated. Estimated blood loss was 300 cc. This morning, the patient is awake and alert. Denies having any nausea vomiting or abdominal pain. The white cell count dropped from 21 down to 17. The hemoglobin is currently at 10.1. Sodium levels at 131, BUN is 9 with a creatinine of 0.5. LFTs show an AST of 56, ALT of 56, alkaline phosphatase of 73. Amylase and lipase are within normal limits. The chest x- ray from 03/22/2024 showed no acute cardiopulmonary process and the patient has a right IJ triple-lumen catheter in place. The patient is currently on IV Zosyn. The patient is also on normal citrate of 75 cc an hour. Dilaudid for pain control. Sinus rhythm. No other significant events overnight. Patient is currently postop day #1. Review of Systems Constitutional: Denies chills, Denies fever Eyes: denies as per HPI, denies blurred vision, denies bulging eye, denies decreased vision, denies diplopia, denies discharge, denies dry eye, denies irritation, denies itching, denies pain, denies photophobia, denies loss of peripheral vision, denies loss of vision, denies tunnel vision/blind spots Ears: deny: decreased hearing, ear discharge, earache, tinnitus Ears, nose, mouth and throat: Reports as per HPI Breasts: absent: as per HPI, gynecomastia Cardiovascular: Reports as per HPI Respiratory: Reports as per HPI Gastrointestinal: Reports abdominal pain Genitourinary: Reports as per HPI Musculoskeletal: Reports as per HPI Musculoskeletal: absent: ankle pain, ankle stiffness, ankle swelling, as per HPI, elbow pain, elbow stiffness, elbow swelling, foot pain, foot stiffness, foot swelling, hand pain, hand stiffness, hand swelling, hip pain, hip stiffness, hip swelling, knee pain, knee stiffness, knee swelling, shoulder pain, shoulder stiffness, shoulder swelling, wrist pain, wrist stiffness, wrist swelling Integumentary: Reports as per HPI Neurological: Reports as per HPI Psychiatric: Reports as per HPI Endocrine: Reports as per HPI Hematologic/Lymphatic: Reports as per HPI Allergic/Immunologic: Reports as per HPI Past Medical History Past Medical History: GERD/Reflux, Hypertension, Osteoarthritis (OA) Additional Past Medical History / Comment(s): arthritis rt heel History of Any Multi-Drug Resistant Organisms: None Reported Past Surgical History: Hernia Repair, Orthopedic Surgery, Tonsillectomy Additional Past Surgical History / Comment(s): surgery for ORIF fx rt femur- plates removed-screw remains and rt knee, colonoscopy Past Anesthesia/Blood Transfusion Reactions: No Reported Reaction Additional Past Anesthesia/Blood Transfusion Reaction / Comment(s): no hx blood transfusion Past Psychological History: Depression Smoking Status: Former smoker Past Alcohol Use History: None Reported Past Drug Use History: None Reported - Past Family History Mother Family Medical History: No Reported History Medications and Allergies Home Medications Medication Instructions Recorded Confirmed Type Hydrocodone/Acetaminophen [[place] 1 tab PO BID PRN 07/08/17 03/22/24 History 7.5-325] Omeprazole [PriLOSEC] 20 mg PO BID 07/08/17 03/22/24 History Cyclobenzaprine [Flexeril] 10 mg PO HS 01/09/18 03/22/24 History lisinopriL 20 mg PO DAILY 01/10/19 03/22/24 History Albuterol Sulfate/Budesonide 2 puff INHALATION RT-Q4H PRN 03/22/24 03/22/24 History [Airsupra 90-80 Mcg Inhaler] DULoxetine HCL [Cymbalta] 60 mg PO HS 03/22/24 03/22/24 History Systane Preservative Free 1 drop BOTH EYES QID PRN 03/22/24 03/22/24 History Allergies Allergy/AdvReac Type Severity Reaction Status Date / Time No Known Allergies Allergy Verified 03/22/24 13:53 Physical Exam Vitals: Vital Signs Temp Pulse Pulse Resp BP BP Pulse Ox 03/23/24 09:07 104 H 03/23/24 09:01 104 H 03/23/24 09:00 106 H 34 H 150/94 89 L 03/23/24 08:00 99 F 110 H 23 133/90 93 L 03/23/24 07:00 108 H 18 133/90 92 L 03/23/24 06:00 108 H 23 136/95 90 L 03/23/24 05:00 102 H 18 136/95 98 03/23/24 04:00 105 H 15 97 03/23/24 03:00 101 H 27 H 98 03/23/24 02:00 94 21 98 03/23/24 01:00 93 19 99 03/23/24 00:21 85 21 99 03/23/24 00:00 99 F 84 20 100 03/22/24 23:00 86 21 100 03/22/24 22:30 86 20 149/89 98 03/22/24 22:00 81 18 153/95 98 03/22/24 21:07 85 16 140/81 98 03/22/24 20:52 83 16 147/85 98 03/22/24 20:37 81 16 136/80 96 03/22/24 20:22 84 16 141/83 95 03/22/24 20:07 97.8 F 98 16 130/88 94 L 03/22/24 15:55 97.0 F L 95 16 134/79 97 03/22/24 15:10 98.9 F 84 18 135/85 96 03/22/24 13:36 99.0 F 104 H 18 133/91 95 03/22/24 11:18 100.0 F H 103 H 18 141/94 97 Intake and Output 03/22/24 03/23/24 03/23/24 22:59 06:59 14:59 Intake Total 3215 1140 725 Output Total 950 650 0 Balance 2265 490 725 Intake: IV 2600 Intake, IV Titration 75 600 225 Amount Sodium Chloride 0.9% 1, 75 600 225 000 ml @ 75 mls/hr IV . [id number] LICENSE OF [facility] Rx#:[id number] Oral 540 540 500 Output: Drainage 50 Right Abdomen 50 Urine 600 600 0 Estimated Blood Loss 350 Other: Weight 77.111 kg 81.6 kg ABP, PAP, CO, CI - Last 8 Hours Arterial Blood Pressure 154/73 Arterial Blood Pressure 140/73 Arterial Blood Pressure 148/72 Arterial Blood Pressure 137/74 Arterial Blood Pressure 141/74 Arterial Blood Pressure 166/82 The patient appeared well nourished and normally developed. Vital signs as documented. Head exam is unremarkable. No scleral icterus or corneal arcus noted. Neck is without jugular venous distension, thyromegaly, or carotid bruits. Carotid upstrokes are brisk bilaterally. Lungs are clear to auscultation and percussion. Cardiac exam reveals the PMI to be normally sized and situated. Rhythm is regular. First and second heart sounds normal. No murmurs, rubs or gallops. Abdominal exam reveals diminished bowel sounds and the patient has a scar in his right upper quadrant which is dry clean and intact and the SYLVIE drain is serosanguineous output, no masses, no organomegaly and no aortic enlargement. Extremities are nonedematous and both femoral and pedal pulses are normal. Examination of the skin revealed no evidence of significant rashes, suspicious appearing nevi or other concerning lesions. Neurologically, the patient is awake and alert and the patient does not have any focal neurological deficit. Cranial nerves are essentially intact. Results - Laboratory Findings CBC and BMP: 03/23/24 03:26 03/23/24 03:26 Abnormal lab findings: Abnormal Labs 03/22/24 03/22/24 03/22/24 10:37 10:37 18:04 WBC 21.6 H RBC Hgb Hct Neutrophils # 18.4 H Lymphocytes # 0.9 L Monocytes # 1.4 H Sodium 131 L Chloride 95 L Creatinine Glucose 111 H POC Glucose (mg/dL) Calcium ALT 54 H Total Protein Albumin Crossmatch See Detail 03/22/24 03/22/24 03/22/24 20:18 20:18 21:24 WBC 19.6 H RBC 3.48 L Hgb 10.0 L D Hct 30.1 L Neutrophils # 16.6 H Lymphocytes # Monocytes # 1.2 H Sodium 132 L Chloride Creatinine 0.63 L Glucose 123 H POC Glucose (mg/dL) 123 H Calcium 7.9 L ALT Total Protein Albumin Crossmatch 03/23/24 03/23/24 03:26 03:26 WBC 17.7 H RBC 3.47 L Hgb 10.1 L Hct 30.2 L Neutrophils # 15.3 H Lymphocytes # 0.7 L Monocytes # 1.1 H Sodium 131 L Chloride Creatinine 0.57 L Glucose 110 H POC Glucose (mg/dL) Calcium 7.7 L ALT 56 H Total Protein 5.8 L Albumin 3.1 L Crossmatch - Diagnostic Findings Chest x-ray: image reviewed Assessment and Plan Plan: Acute gangrenous cholecystitis and the patient had a open cholecystectomy the patient is postop day #1. Patient encountered portal vein laceration and bleed that was clamped and sutured and bleeding has been controlled. SYLVIE drain is in place and the output is serosanguineous and the patient is hemodynamically stable, currently on IV Zosyn. Abdominal pain secondary to above Acute leukocytosis, improving Hypertension Osteoarthritis Acid reflux Plan Titrate oxygen flow, currently on 2 L nasal cannula Provide incentive spirometer May discontinue the arterial line and triple-lumen catheter Continue IV Zosyn Monitor output from the SYLVIE drain Clear liquid diet Heparin subcu for DVT prophylaxis Coila for pain control in combination with Dilaudid for breakthrough pain Will continue to follow
[2024-03-23] MEDS: ACETAMINOPHEN IV (For NPO) 1,000 MG in EMPTY BAG 1 BAG IVPB SCH (18:21)
[2024-03-23] MEDS: HYDROmorphone 1 MG/ML 1 ML SYRINGE IVP PRN (20:54)
[2024-03-23] MEDS: HEPARIN SODIUM,PORCINE 5,000 UNIT/ML 1 ML VIAL SQ SCH (20:54)
[2024-03-24] MEDS: traMADol 50 MG TAB PO PRN (04:27)
--- NOTE | 2024-03-24 09:22 | P.CONS ---
History of Present Illness - Reason for Consult Consult date: 03/23/24 Cholecystitis Requesting physician: Marshall Wills - Chief Complaint Abdominal pain x week - History of Present Illness Patient is a 64-year-old male with a past medical history significant for hypertension reflux osteoarthritis, sent to the ER by the PCP concerning for right upper quadrant abdominal pain that apparently has been going on for more than a week previously evaluated at [facility] ER and was diagnosed with possible biliary colic and was advised to follow-up with the surgeon in the outpatient setting, patient mention pain has been going on for more than a week is mostly in the right upper quadrant area that has progressively increased in intensity almost 10 times a day he presented to hospital he did have associated nausea and vomiting denies having any diarrhea patient on presentation to the hospital did have a low-grade fever 100.2 F patient did not have significant tachycardia or hypotension he did have white count 21.6 repeat is 17.7 creatinine is normal ALT mildly elevated patient did have a gallbladder ultrasound with evidence of cholelithiasis and features of cholecystitis patient was taken to the OR last night and the patient is status post open cholecystectomy for acute gangrenous cholecystitis patient did have blood culture done but no OR culture he was started on Zosyn infectious he was consulted for further management of antibiotic therapy Review of Systems Positive point and negatives has been mentioned in the HPI, complete review of systems was performed and all other systems are negative Past Medical History Past Medical History: GERD/Reflux, Hypertension, Osteoarthritis (OA) Additional Past Medical History / Comment(s): arthritis rt heel History of Any Multi-Drug Resistant Organisms: None Reported Past Surgical History: Hernia Repair, Orthopedic Surgery, Tonsillectomy Additional Past Surgical History / Comment(s): surgery for ORIF fx rt femur- plates removed-screw remains and rt knee, colonoscopy Past Anesthesia/Blood Transfusion Reactions: No Reported Reaction Additional Past Anesthesia/Blood Transfusion Reaction / Comm: no hx blood transfusion Past Psychological History: Depression Smoking Status: Former smoker Past Alcohol Use History: None Reported Past Drug Use History: None Reported - Past Family History Mother Family Medical History: No Reported History Medications and Allergies Home Medications Medication Instructions Recorded Confirmed Type Hydrocodone/Acetaminophen [[place] 1 tab PO BID PRN 07/08/17 03/22/24 History 7.5-325] Omeprazole [PriLOSEC] 20 mg PO BID 07/08/17 03/22/24 History Cyclobenzaprine [Flexeril] 10 mg PO HS 01/09/18 03/22/24 History lisinopriL 20 mg PO DAILY 01/10/19 03/22/24 History Albuterol Sulfate/Budesonide 2 puff INHALATION RT-Q4H PRN 03/22/24 03/22/24 History [Airsupra 90-80 Mcg Inhaler] DULoxetine HCL [Cymbalta] 60 mg PO HS 03/22/24 03/22/24 History Systane Preservative Free 1 drop BOTH EYES QID PRN 03/22/24 03/22/24 History Allergies Allergy/AdvReac Type Severity Reaction Status Date / Time No Known Allergies Allergy Verified 03/22/24 13:53 Physical Exam Vitals: Vital Signs Temp Pulse Pulse Resp BP BP Pulse Ox 03/23/24 09:07 104 H 03/23/24 09:01 104 H 03/23/24 09:00 106 H 34 H 150/94 89 L 03/23/24 08:00 99 F 110 H 23 133/90 93 L 03/23/24 07:00 108 H 18 133/90 92 L 03/23/24 06:00 108 H 23 136/95 90 L 03/23/24 05:00 102 H 18 136/95 98 03/23/24 04:00 105 H 15 97 03/23/24 03:00 101 H 27 H 98 03/23/24 02:00 94 21 98 03/23/24 01:00 93 19 99 03/23/24 00:21 85 21 99 03/23/24 00:00 99 F 84 20 100 03/22/24 23:00 86 21 100 03/22/24 22:30 86 20 149/89 98 03/22/24 22:00 81 18 153/95 98 03/22/24 21:07 85 16 140/81 98 03/22/24 20:52 83 16 147/85 98 03/22/24 20:37 81 16 136/80 96 03/22/24 20:22 84 16 141/83 95 03/22/24 20:07 97.8 F 98 16 130/88 94 L 03/22/24 15:55 97.0 F L 95 16 134/79 97 03/22/24 15:10 98.9 F 84 18 135/85 96 03/22/24 13:36 99.0 F 104 H 18 133/91 95 03/22/24 11:18 100.0 F H 103 H 18 141/94 97 03/22/24 10:19 100.2 F H 119 H 20 142/87 98 Intake and Output 03/22/24 03/23/24 03/23/24 22:59 06:59 14:59 Intake Total 3215 1140 725 Output Total 950 650 0 Balance 2265 490 725 Intake: IV 2600 Intake, IV Titration 75 600 225 Amount Sodium Chloride 0.9% 1, 75 600 225 000 ml @ 75 mls/hr IV . [id number] [facility] Rx#:[id number] Oral 540 540 500 Output: Drainage 50 Right Abdomen 50 Urine 600 600 0 Estimated Blood Loss 350 Other: Weight 77.111 kg 81.6 kg ABP, PAP, CO, CI - Last 8 Hours Arterial Blood Pressure 154/73 Arterial Blood Pressure 140/73 Arterial Blood Pressure 148/72 Arterial Blood Pressure 137/74 Arterial Blood Pressure 141/74 Arterial Blood Pressure 166/82 GENERAL DESCRIPTION: Middle-aged male lying in bed, no distress. No tachypnea or accessory muscle of respiration use. HEENT: Shows Pallor , no scleral icterus. Oral mucous membrane is dry. NECK: Trachea central, no thyromegaly. LUNGS: Unlabored breathing. Clear to auscultation anteriorly. No wheeze or crackle. HEART: S1, S2, regular rate and rhythm. No loud murmur ABDOMEN: Soft, mild distention and right upper quadrant tenderness EXTREMITIES: No edema of feet. SKIN: No rash, no masses palpable. NEUROLOGICAL: The patient is awake, alert, oriented x3, mood and affect normal. Results CBC & Chem 7: 03/24/24 11:11 03/24/24 11:11 Labs: Abnormal Lab Results - Last 24 Hours (Table) 03/22/24 03/22/24 03/22/24 Range/Units 10:37 10:37 18:04 WBC 21.6 H (3.8-10.6) k/uL RBC (4.30-5.90) m/uL Hgb (13.0-17.5) gm/dL Hct (39.0-53.0) % Neutrophils # 18.4 H (1.3-7.7) k/uL Lymphocytes # 0.9 L (1.0-4.8) k/uL Monocytes # 1.4 H (0-1.0) k/uL Sodium 131 L (137-145) mmol/L Chloride 95 L (98-107) mmol/L Creatinine (0.66-1.25) mg/dL Glucose 111 H (74-99) mg/dL POC Glucose (mg/dL) (70-110) mg/dL Calcium (8.4-10.2) mg/dL ALT 54 H (4-49) U/L Total Protein (6.3-8.2) g/dL Albumin (3.5-5.0) g/dL Crossmatch See Detail 03/22/24 03/22/24 03/22/24 Range/Units 20:18 20:18 21:24 WBC 19.6 H (3.8-10.6) k/uL RBC 3.48 L (4.30-5.90) m/uL Hgb 10.0 L D (13.0-17.5) gm/dL Hct 30.1 L (39.0-53.0) % Neutrophils # 16.6 H (1.3-7.7) k/uL Lymphocytes # (1.0-4.8) k/uL Monocytes # 1.2 H (0-1.0) k/uL Sodium 132 L (137-145) mmol/L Chloride (98-107) mmol/L Creatinine 0.63 L (0.66-1.25) mg/dL Glucose 123 H (74-99) mg/dL POC Glucose (mg/dL) 123 H (70-110) mg/dL Calcium 7.9 L (8.4-10.2) mg/dL ALT (4-49) U/L Total Protein (6.3-8.2) g/dL Albumin (3.5-5.0) g/dL Crossmatch 03/23/24 03/23/24 Range/Units 03:26 03:26 WBC 17.7 H (3.8-10.6) k/uL RBC 3.47 L (4.30-5.90) m/uL Hgb 10.1 L (13.0-17.5) gm/dL Hct 30.2 L (39.0-53.0) % Neutrophils # 15.3 H (1.3-7.7) k/uL Lymphocytes # 0.7 L (1.0-4.8) k/uL Monocytes # 1.1 H (0-1.0) k/uL Sodium 131 L (137-145) mmol/L Chloride (98-107) mmol/L Creatinine 0.57 L (0.66-1.25) mg/dL Glucose 110 H (74-99) mg/dL POC Glucose (mg/dL) (70-110) mg/dL Calcium 7.7 L (8.4-10.2) mg/dL ALT 56 H (4-49) U/L Total Protein 5.8 L (6.3-8.2) g/dL Albumin 3.1 L (3.5-5.0) g/dL Crossmatch Assessment and Plan (1) Acute cholecystitis Current Visit: Yes Status: Acute Code(s): K81.0 - ACUTE CHOLECYSTITIS SNOMED Code(s): 18803399 (2) Sepsis Current Visit: Yes Status: Acute Code(s): A41.9 - SEPSIS, UNSPECIFIED ORGANISM SNOMED Code(s): 47538720 Plan: 1patient presented to hospital with sepsis in this patient who did have fever elevated white count mild tachycardia meeting criteria for SIRS source is acute gangrenous cholecystitis status post open cholecystectomy and will need to cover for the enteric gram-negative to be the likely pathogen unfortunately no OR cultures were done. 2patient has been advised Zosyn 3.375 g every 8 hours empirically while waiting for condition to stabilize and blood culture to finalize. We will follow on clinical condition and cultures to further adjust medication if needed Thank you for this consultation we will follow the patient along with you Dictation was produced using [employer] dictation software. please excuse any grammatical, word or spelling errors. Time with Patient: Greater than 30
--- NOTE | 2024-03-24 10:21 | PN ---
PROGRESS NOTE DATE OF SERVICE: 03/23/2024 SUBJECTIVE: Brian Miller remains in the ICU for status post acute cholecystitis with elevated white count. He had a cholecystectomy done. He is on clear liquid diet. Hemoglobin is 10.1, white count is down from 19 to 17. 30 mL of serosanguineous output. OBJECTIVE: CARDIOVASCULAR: S1 and S2. LUNGS: Transmitted upper sounds. GI: Soft. NEUROLOGIC: Cranial nerves intact. PSYCH: Fair mood and affect. ASSESSMENT: Acute gangrenous calculous cholecystitis, status post cholecystectomy, history of COPD, corneal ulcer/cancer. Continue current treatment, antibiotics IV, labs, PT, OT. Prognosis is guarded. MMODL / IJN: [id number] /
--- NOTE | 2024-03-24 10:34 | P.PN ---
Subjective Progress Note Date: 03/24/24 Principal diagnosis: Gangrenous cholecystitis Patient feels better today. Feels less swollen. Andrew catheter remains in place. Good urine output. SYLVIE drain serosanguineous. Pain improving. Objective - Vital Signs Vital signs: Vital Signs Temp 97.9 F 03/24/24 07:20 Pulse 96 03/24/24 08:40 Resp 16 03/24/24 07:20 BP 160/87 03/24/24 07:20 Pulse Ox 94 L 03/24/24 07:20 FiO2 Intake & Output 03/23/24 03/24/24 03/24/24 18:59 06:59 18:59 Intake Total 1350 Output Total 100 1225 Balance 1250 -1225 Intake: Intake, IV Titration 450 Amount Sodium Chloride 0.9% 1, 450 000 ml @ 75 mls/hr IV . [id number] [facility] Rx#:[id number] Oral 900 Output: Drainage 100 25 Right Abdomen 100 25 Urine 0 1200 Other: Voiding Method Indwelling Catheter ABP, PAP, CO, CI - Last Documented Arterial Blood Pressure 154/73 - Exam Abdomen: Soft, nondistended, dressing clean and dry, mild tenderness, SYLVIE serosanguineous - Labs CBC & Chem 7: 03/23/24 03:26 03/23/24 03:26 Assessment and Plan (1) Acute cholecystitis Narrative/Plan: 62-year-old male with acute cholecystitis. Doing better today. Continue clear liquids as the patient is still mildly nauseous and appetite is diminished. Check labs. Add Toradol for pain control. Increase activity today. Current Visit: Yes Status: Acute Code(s): K81.0 - ACUTE CHOLECYSTITIS SNOMED Code(s): 57826238
[2024-03-24] MEDS: KETOROLAC 15 MG/ML 1 ML VIAL IVP SCH (11:27)
[2024-03-24 12:15] LABS: Basophils # (A) 0.1 k/uL (0-0.2); Basophils % (A) 1 %; Eosinophils # (A) 0.1 k/uL (0-0.7); Eosinophils % (A) 1 %; HGB 9.8 gm/dL (13.0-17.5); Hypochromasia Slight; Lymphocytes # (A) 0.8 k/uL (1.0-4.8); Lymphocytes % (A) 4 %; MCHC 30.6 g/dL (31.0-37.0); MCV 91.4 fL (80.0-100.0); Mean Platelet Volume 7.8; Monocytes # (A) 1.1 k/uL (0-1.0); Monocytes % (A) 6 %; Neutrophils # (A) 16.1 k/uL (1.3-7.7); Neutrophils % (A) 86 %; Platelet Count 355 k/uL (150-450); RDW 13.3 % (11.5-15.5); WBC 18.7 k/uL (3.8-10.6)
[2024-03-24 12:58] LABS: ALT 46 U/L (4-49); AST 43 U/L (17-59); African American GFR (CKD) >90 (>60 ml/min/1.73 sqM); Albumin/Globulin Ratio 1.1; Alkaline Phosphatase 80 U/L (38-126); Anion Gap 10 mmol/L; Blood Urea Nitrogen 6 mg/dL (9-20); Calcium 8.1 mg/dL (8.4-10.2); Carbon Dioxide 23 mmol/L (22-30); Chloride 100 mmol/L (98-107); Globulin 2.8 g/dL; Glucose 85 mg/dL (74-99); Non-African American GFR(CKD) >90 (>60 ml/min/1.73 sqM); Potassium 3.8 mmol/L (3.5-5.1); Sodium 133 mmol/L (137-145); Total Bilirubin 0.6 mg/dL (0.2-1.3); Total Protein 5.8 g/dL (6.3-8.2)
--- NOTE | 2024-03-24 14:06 | P.PN ---
Subjective Progress Note Date: 03/24/24 Principal diagnosis: Reason for follow-up is acute gangrenous cholecystitis and leukocytosis Patient is a 64-year-old male with a past medical history significant for hypertension reflux osteoarthritis admitted to hospital with right upper quad abdominal pain has been diagnosed with acute gangrenous cholecystitis status post open cholecystectomy. On today's evaluation that is 03/24/2024, patient has been afebrile, patient is breathing comfortably and is currently on room air, patient denies having any significant cough no chest pain, patient denies nausea vomiting still complaining of abdominal pain about 8 out of 10 mention passing gas. Patient white count slightly up to 18.7 today creatinine 0.59 Objective - Vital Signs Vital signs: Vital Signs Temp 97.9 F 03/24/24 07:20 Pulse 96 03/24/24 08:40 Resp 16 03/24/24 07:20 BP 160/87 03/24/24 07:20 Pulse Ox 94 L 03/24/24 07:20 FiO2 Intake & Output 03/23/24 03/24/24 03/24/24 18:59 06:59 18:59 Intake Total 1350 Output Total 100 1225 Balance 1250 -1225 Intake: Intake, IV Titration 450 Amount Sodium Chloride 0.9% 1, 450 000 ml @ 75 mls/hr IV . [id number] [facility] Rx#:[id number] Oral 900 Output: Drainage 100 25 Right Abdomen 100 25 Urine 0 1200 Other: Voiding Method Indwelling Catheter ABP, PAP, CO, CI - Last Documented Arterial Blood Pressure 154/73 - Exam GENERAL DESCRIPTION: Middle-age y male lying in bed in no distress RESPIRATORY SYSTEM: Unlabored breathing , decreased breath sounds at bases HEART: S1 S2 regular rate and rhythm , ABDOMEN: Soft , mild tenderness EXTREMITIES: No edema feet - Labs CBC & Chem 7: 03/24/24 11:11 03/24/24 11:11 Labs: Abnormal Lab Results - Last 24 Hours (Table) 03/24/24 03/24/24 Range/Units 11:11 11:11 WBC 18.7 H (3.8-10.6) k/uL RBC 3.50 L (4.30-5.90) m/uL Hgb 9.8 L (13.0-17.5) gm/dL Hct 32.0 L (39.0-53.0) % MCHC 30.6 L (31.0-37.0) g/dL Neutrophils # 16.1 H (1.3-7.7) k/uL Lymphocytes # 0.8 L (1.0-4.8) k/uL Monocytes # 1.1 H (0-1.0) k/uL Sodium 133 L (137-145) mmol/L BUN 6 L (9-20) mg/dL Creatinine 0.59 L (0.66-1.25) mg/dL Calcium 8.1 L (8.4-10.2) mg/dL Total Protein 5.8 L (6.3-8.2) g/dL Albumin 3.0 L (3.5-5.0) g/dL Assessment and Plan (1) Acute cholecystitis Current Visit: Yes Status: Acute Code(s): K81.0 - ACUTE CHOLECYSTITIS SNOMED Code(s): 54961820 (2) Sepsis Current Visit: Yes Status: Acute Code(s): A41.9 - SEPSIS, UNSPECIFIED ORGANISM SNOMED Code(s): 63998402 Plan: 1patient presented to hospital with sepsis in this patient who did have fever elevated white count mild tachycardia meeting criteria for SIRS source is acute gangrenous cholecystitis status post open cholecystectomy and will need to cover for the enteric gram-negative to be the likely pathogen unfortunately no OR cultures were done. 2patient to continue with Zosyn 3.375 g every 8 hours noticed to have slight worsening of the white count and will monitor closely Dictation was produced using [employer] dictation software. please excuse any grammatical, word or spelling errors.
--- NOTE | 2024-03-24 15:15 | P.PN ---
Subjective Progress Note Date: 03/24/24 03/23/2024, the patient is being seen for a consultation in the intensive care unit. The patient had a complicated cholecystectomy yesterday for an acute gangrenous cholecystitis. Initially, the procedure was attempted to be laparoscopic and it was converted to open. The patient during the procedure en countered a laceration of the portal vein that was clamped. The area was inspected by vascular surgery and the bleeding was essentially controlled. Ultimately, the wound was closed in a SYLVIE drain was placed and the patient was transferred to the to the intensive care unit after being extubated. Estimated blood loss was 300 cc. This morning, the patient is awake and alert. Denies having any nausea vomiting or abdominal pain. The white cell count dropped from 21 down to 17. The hemoglobin is currently at 10.1. Sodium levels at 131, BUN is 9 with a creatinine of 0.5. LFTs show an AST of 56, ALT of 56, alkaline phosphatase of 73. Amylase and lipase are within normal limits. The chest x- ray from 03/22/2024 showed no acute cardiopulmonary process and the patient has a right IJ triple-lumen catheter in place. The patient is currently on IV Zosyn. The patient is also on normal citrate of 75 cc an hour. Dilaudid for pain control. Sinus rhythm. No other significant events overnight. Patient is currently postop day #1. 03/24/2024, the patient is doing well. He is on room air oxygen. No signs of any septicemia the patient remains on IV Zosyn. The white cell count is at 18.7. Hemoglobin is 9.8. Tolerating diet. Passing flatus. Ambulating. SYLVIE drain is serosanguineous. Objective - Vital Signs Vital signs: Vital Signs Temp 97.9 F 03/24/24 07:20 Pulse 96 03/24/24 08:40 Resp 16 03/24/24 07:20 BP 160/87 03/24/24 07:20 Pulse Ox 94 L 03/24/24 07:20 FiO2 Intake & Output 03/23/24 03/24/24 03/24/24 18:59 06:59 18:59 Intake Total 1350 Output Total 100 1225 Balance 1250 -1225 Intake: Intake, IV Titration 450 Amount Sodium Chloride 0.9% 1, 450 000 ml @ 75 mls/hr IV . [id number] VINAY Rx#:[id number] Oral 900 Output: Drainage 100 25 Right Abdomen 100 25 Urine 0 1200 Other: Voiding Method Indwelling Catheter ABP, PAP, CO, CI - Last Documented Arterial Blood Pressure 154/73 - Exam The patient appeared well nourished and normally developed. Vital signs as documented. Head exam is unremarkable. No scleral icterus or corneal arcus noted. Neck is without jugular venous distension, thyromegaly, or carotid bruits. Carotid upstrokes are brisk bilaterally. Lungs are clear to auscultation and percussion. Cardiac exam reveals the PMI to be normally sized and situated. Rhythm is regular. First and second heart sounds normal. No murmurs, rubs or gallops. Abdominal exam reveals diminished bowel sounds and the patient has a scar in his right upper quadrant which is dry clean and intact and the SYLVIE drain is serosanguineous output, no masses, no organomegaly and no aortic enlargement. Extremities are nonedematous and both femoral and pedal pulses are normal. Examination of the skin revealed no evidence of significant rashes, suspicious appearing nevi or other concerning lesions. Neurologically, the patient is awake and alert and the patient does not have any focal neurological deficit. Cranial nerves are essentially intact. - Labs CBC & Chem 7: 03/24/24 11:11 03/24/24 11:11 Labs: Abnormal Lab Results - Last 24 Hours (Table) 03/24/24 Range/Units 11:11 WBC 18.7 H (3.8-10.6) k/uL RBC 3.50 L (4.30-5.90) m/uL Hgb 9.8 L (13.0-17.5) gm/dL Hct 32.0 L (39.0-53.0) % MCHC 30.6 L (31.0-37.0) g/dL Neutrophils # 16.1 H (1.3-7.7) k/uL Lymphocytes # 0.8 L (1.0-4.8) k/uL Monocytes # 1.1 H (0-1.0) k/uL Assessment and Plan Plan: Acute gangrenous cholecystitis and the patient had a open cholecystectomy the patient is postop day #2. Patient encountered portal vein laceration and bleed that was clamped and sutured and bleeding has been controlled. SYLVIE drain is in place and the output is serosanguineous and the patient is hemodynamically stable, currently on IV Zosyn. Abdominal pain secondary to above Acute leukocytosis, white cell count remains elevated Hypertension Osteoarthritis Acid reflux Plan Patient is currently on room air oxygen Provide incentive spirometer Continue IV Zosyn Monitor output from the SYLVIE drain Clear liquid diet Heparin subcu for DVT prophylaxis [place] for pain control in combination with Dilaudid for breakthrough pain Will continue to follow
[2024-03-24] MEDS: ONDANSETRON 4 MG/2 ML VIAL IVP PRN (19:32)
[2024-03-24] MEDS: PANTOPRAZOLE 40 MG/10 ML VIAL IVP SCH (21:18)
--- NOTE | 2024-03-25 09:42 | P.PN ---
Subjective Progress Note Date: 03/25/24 Principal diagnosis: Gangrenous cholecystitis Patient sitting up in the chair. He had an episode of vomiting last night. Feels better today. No nausea currently. White blood cell count yesterday 18,000. SYLVIE mostly serous now. Increased output today. Objective - Vital Signs Vital signs: Vital Signs Temp 98.1 F 03/25/24 01:21 Pulse 94 03/25/24 01:21 Resp 17 03/25/24 01:21 BP 125/81 03/25/24 01:21 Pulse Ox 93 L 03/25/24 01:21 FiO2 Intake & Output 03/24/24 03/25/24 03/25/24 18:59 06:59 18:59 Output Total 322 Balance -322 Output: Drainage 22 Right Abdomen 22 Urine 300 Other: Voiding Method Indwelling Catheter Indwelling Catheter ABP, PAP, CO, CI - Last Documented Arterial Blood Pressure 154/73 - Exam Abdomen: Soft, mild distention, dressing clean and dry, SYLVIE serous, mild tenderness - Labs CBC & Chem 7: 03/24/24 11:11 03/24/24 11:11 Labs: Abnormal Lab Results - Last 24 Hours (Table) 03/24/24 03/24/24 Range/Units 11:11 11:11 WBC 18.7 H (3.8-10.6) k/uL RBC 3.50 L (4.30-5.90) m/uL Hgb 9.8 L (13.0-17.5) gm/dL Hct 32.0 L (39.0-53.0) % MCHC 30.6 L (31.0-37.0) g/dL Neutrophils # 16.1 H (1.3-7.7) k/uL Lymphocytes # 0.8 L (1.0-4.8) k/uL Monocytes # 1.1 H (0-1.0) k/uL Sodium 133 L (137-145) mmol/L BUN 6 L (9-20) mg/dL Creatinine 0.59 L (0.66-1.25) mg/dL Calcium 8.1 L (8.4-10.2) mg/dL Total Protein 5.8 L (6.3-8.2) g/dL Albumin 3.0 L (3.5-5.0) g/dL Microbiology - Last 24 Hours (Table) 03/22/24 15:17 Blood Culture - Preliminary Blood Assessment and Plan (1) Acute cholecystitis Narrative/Plan: Patient with episodes of nausea. Suspect ileus secondary to his gangrenous cholecystitis. Keep on clear liquids for now. Continue IV antibiotics. Remove Andrew catheter tomorrow. Current Visit: Yes Status: Acute Code(s): K81.0 - ACUTE CHOLECYSTITIS SNOMED Code(s): 63338590
[2024-03-25 10:19] LABS: HCT 28.6 % (39.6-50.0); HGB 9.1 g/dL (13.0-17.0); MCH 27.8 pg (27.0-32.0); MCHC 31.8 g/dL (32.0-37.0); MCV 87.5 FL (80.0-97.0); NRBC Per 100 WBC 0 X 10*3/uL (0.00-0.01); Platelet Count 400 X 10*3/uL (140-440); RBC 3.27 X 10*6/uL (4.40-5.60); RDW 13.2 % (11.5-14.5); WBC 18.75 X 10*3/uL (4.50-10.00)
[2024-03-25 10:21] LABS: ALT 41 U/L (10-49); AST 30 U/L (14-35); Albumin 2.9 g/dL (3.8-4.9); Albumin/Globulin Ratio 1.21 Ratio (1.60-3.17); Alkaline Phosphatase 87 U/L (41-126); Blood Urea Nitrogen 12.3 mg/dL (9.0-27.0); Carbon Dioxide 20.3 mmol/L (21.6-31.8); Chloride 100 mmol/L (96-109); Globulin 2.4 g/dL (1.6-3.3); Glucose 73 mg/dL (70-110); Potassium 3.8 mmol/L (3.5-5.5); Sodium 134 mmol/L (135-145); Total Bilirubin 0.3 mg/dL (0.3-1.2); Total Protein 5.3 g/dL (6.2-8.2)
--- NOTE | 2024-03-25 11:16 | P.GSCN ---
History of Present Illness Consult date: 03/23/24 History of present illness: patient is 64. He underwent a cholecystectomy. He is in urine retention. We have been asked to place a catheteras the nursing staff has been unable to do so. He has not had problems urinating prior to the hospitalization. He is in the ICU. Review of Systems All systems: negative - Constitutional Denies fever, Denies weight loss - EENT Eyes: denies blurred vision Ears, nose, mouth and throat: Denies dysphagia - Cardiovascular Denies chest pain, Denies shortness of breath - Respiratory Denies cough, Denies 7 - Gastrointestinal Reports as per HPI - Genitourinary Denies dysuria, Denies hematuria - Integumentary Denies rash, Denies unusual bruising - Neurological Denies headaches, Denies syncope - Hematologic/Lymphatic Denies easy bleeding, Denies easy bruising Past Medical History Past Medical History: GERD/Reflux, Hypertension, Osteoarthritis (OA) Additional Past Medical History / Comment(s): arthritis rt heel History of Any Multi-Drug Resistant Organisms: None Reported Past Surgical History: Hernia Repair, Orthopedic Surgery, Tonsillectomy Additional Past Surgical History / Comment(s): surgery for ORIF fx rt femur- plates removed-screw remains and rt knee, colonoscopy Past Anesthesia/Blood Transfusion Reactions: No Reported Reaction Additional Past Anesthesia/Blood Transfusion Reaction / Comm: no hx blood transfusion Past Psychological History: Depression Smoking Status: Former smoker Past Alcohol Use History: None Reported Past Drug Use History: None Reported - Past Family History Mother Family Medical History: No Reported History Medications and Allergies Home Medications Medication Instructions Recorded Confirmed Type Hydrocodone/Acetaminophen [Kountze 1 tab PO BID PRN 07/08/17 03/22/24 History 7.5-325] Omeprazole [PriLOSEC] 20 mg PO BID 07/08/17 03/22/24 History Cyclobenzaprine [Flexeril] 10 mg PO HS 01/09/18 03/22/24 History lisinopriL 20 mg PO DAILY 01/10/19 03/22/24 History Albuterol Sulfate/Budesonide 2 puff INHALATION RT-Q4H PRN 03/22/24 03/22/24 History [Airsupra 90-80 Mcg Inhaler] DULoxetine HCL [Cymbalta] 60 mg PO HS 11/07/24 11/07/24 History Systane Preservative Free 1 drop BOTH EYES QID PRN 03/22/24 03/22/24 History Allergies Allergy/AdvReac Type Severity Reaction Status Date / Time No Known Allergies Allergy Verified 03/22/24 13:53 Surgical - Exam Vital Signs Temp Pulse Resp BP Pulse Ox 100.2 F H 119 H 20 142/87 98 03/22/24 10:19 03/22/24 10:19 03/22/24 10:19 03/22/24 10:19 03/22/24 10:19 - General well developed, well nourished, no distress - Eyes normal ocular movement, no icteric - ENT no hearing loss, no congestion - Neck no masses, trachea midline - Respiratory normal respiratory effort, clear to auscultation - Abdomen Abdomen: soft, non tender, no guarding, no rigid, no rebound - Integumentary no rash, no abnormal pigmentation - Neurologic no disoriented, no combative - Psychiatric oriented to time, oriented to person, oriented to place, speech is normal, memory intact Results - Labs 03/25/24 03:36 03/25/24 03:36 Abnormal Lab Results - Last 24 Hours (Table) 03/24/24 03/24/24 03/25/24 Range/Units 11:11 11:11 03:36 WBC 18.7 H 18.75 H (3.8-10.6) k/uL RBC 3.50 L 3.27 L (4.30-5.90) m/uL Hgb 9.8 L 9.1 L (13.0-17.5) gm/dL Hct 32.0 L 28.6 L (39.0-53.0) % MCHC 30.6 L 31.8 L (31.0-37.0) g/dL MPV 9.0 L (9.5-12.2) FL Neutrophils # 16.1 H (1.3-7.7) k/uL Lymphocytes # 0.8 L (1.0-4.8) k/uL Monocytes # 1.1 H (0-1.0) k/uL Sodium 133 L (137-145) mmol/L Carbon Dioxide (21.6-31.8) mmol/L Anion Gap (4.00-12.00) mmol/L BUN 6 L (9-20) mg/dL Creatinine 0.59 L (0.66-1.25) mg/dL BUN/Creatinine Ratio (12.00-20.00) Ratio Calcium 8.1 L (8.4-10.2) mg/dL Total Protein 5.8 L (6.3-8.2) g/dL Albumin 3.0 L (3.5-5.0) g/dL Albumin/Globulin Ratio (1.60-3.17) Ratio 03/25/24 Range/Units 03:36 WBC (3.8-10.6) k/uL RBC (4.30-5.90) m/uL Hgb (13.0-17.5) gm/dL Hct (39.0-53.0) % MCHC (31.0-37.0) g/dL MPV (9.5-12.2) FL Neutrophils # (1.3-7.7) k/uL Lymphocytes # (1.0-4.8) k/uL Monocytes # (0-1.0) k/uL Sodium 134 L (137-145) mmol/L Carbon Dioxide 20.3 L (21.6-31.8) mmol/L Anion Gap 13.70 H (4.00-12.00) mmol/L BUN (9-20) mg/dL Creatinine (0.66-1.25) mg/dL BUN/Creatinine Ratio 20.50 H (12.00-20.00) Ratio Calcium 8.0 L (8.4-10.2) mg/dL Total Protein 5.3 L (6.3-8.2) g/dL Albumin 2.9 L (3.5-5.0) g/dL Albumin/Globulin Ratio 1.21 L (1.60-3.17) Ratio Microbiology - Last 24 Hours (Table) 03/22/24 15:17 Blood Culture - Preliminary Blood Diabetes panel 03/24/24 03/25/24 Range/Units 11:11 03:36 Sodium 133 L 134 L (137-145) mmol/L Potassium 3.8 3.8 (3.5-5.1) mmol/L Chloride 100 100 (98-107) mmol/L Carbon Dioxide 23 20.3 L (22-30) mmol/L BUN 6 L 12.3 (9-20) mg/dL Creatinine 0.59 L 0.6 (0.66-1.25) mg/dL Glucose 85 73 (74-99) mg/dL Calcium 8.1 L 8.0 L (8.4-10.2) mg/dL AST 43 30 (17-59) U/L ALT 46 41 (4-49) U/L Alkaline Phosphatase 80 87 (38-126) U/L Total Protein 5.8 L 5.3 L (6.3-8.2) g/dL Albumin 3.0 L 2.9 L (3.5-5.0) g/dL Calcium panel 03/24/24 03/25/24 Range/Units 11:11 03:36 Calcium 8.1 L 8.0 L (8.4-10.2) mg/dL Albumin 3.0 L 2.9 L (3.5-5.0) g/dL Pituitary panel 03/24/24 03/25/24 Range/Units 11:11 03:36 Sodium 133 L 134 L (137-145) mmol/L Potassium 3.8 3.8 (3.5-5.1) mmol/L Chloride 100 100 (98-107) mmol/L Carbon Dioxide 23 20.3 L (22-30) mmol/L BUN 6 L 12.3 (9-20) mg/dL Creatinine 0.59 L 0.6 (0.66-1.25) mg/dL Glucose 85 73 (74-99) mg/dL Calcium 8.1 L 8.0 L (8.4-10.2) mg/dL Adrenal panel 03/24/24 03/25/24 Range/Units 11:11 03:36 Sodium 133 L 134 L (137-145) mmol/L Potassium 3.8 3.8 (3.5-5.1) mmol/L Chloride 100 100 (98-107) mmol/L Carbon Dioxide 23 20.3 L (22-30) mmol/L BUN 6 L 12.3 (9-20) mg/dL Creatinine 0.59 L 0.6 (0.66-1.25) mg/dL Glucose 85 73 (74-99) mg/dL Calcium 8.1 L 8.0 L (8.4-10.2) mg/dL Total Bilirubin 0.6 0.3 (0.2-1.3) mg/dL AST 43 30 (17-59) U/L ALT 46 41 (4-49) U/L Alkaline Phosphatase 80 87 (38-126) U/L Total Protein 5.8 L 5.3 L (6.3-8.2) g/dL Albumin 3.0 L 2.9 L (3.5-5.0) g/dL Assessment and Plan Assessment: impression: Urine retention post cholecystectomy Recommendations: Catheter placement
--- NOTE | 2024-03-25 11:17 | P.PCN ---
Date of Procedure: 03/23/24 Preoperative Diagnosis: difficult catheter placement urine retention Postoperative Diagnosis: same Procedure(s) Performed: difficult catheter placement Anesthesia: none Surgeon: Brandon Rm Indications for Procedure: the patient is status post cholecystectomy. He is in the ICU. He is not emptying his bladder. The nursing staffs unable to pass a catheter Description of Procedure: the patient is prepped and draped sterilely. As of the nursing staff inability to pass a catheter in him up the urethra. I used a 16-[place] coud-tip catheter and slowly passed into the bladder with clear urine return. Impression successful catheter placement. Recommendations: The catheter can be removed when the patient is ambulatory.
[2024-03-25 12:05] LABS: Basophils # (A) 0.08 X 10*3/uL (0.00-0.10); Basophils % (A) 0.4 %; Eosinophils # (A) 0.34 X 10*3/uL (0.04-0.35); Eosinophils % (A) 1.8 %; Lymphocytes # (A) 1.82 X 10*3/uL (0.90-5.00); Lymphocytes % (A) 9.7 %; Monocytes # (A) 1.84 X 10*3/uL (0.20-1.00); Monocytes % (A) 9.8 %; Neutrophils # (A) 14.14 X 10*3/uL (1.80-7.70); Neutrophils % (A) 75.5 %; RBC Morphology Normal (Normal)
--- NOTE | 2024-03-25 12:47 | P.PN ---
Subjective Progress Note Date: 03/25/24 03/23/2024, the patient is being seen for a consultation in the intensive care unit. The patient had a complicated cholecystectomy yesterday for an acute gangrenous cholecystitis. Initially, the procedure was attempted to be laparoscopic and it was converted to open. The patient during the procedure en countered a laceration of the portal vein that was clamped. The area was inspected by vascular surgery and the bleeding was essentially controlled. Ultimately, the wound was closed in a SYLVIE drain was placed and the patient was transferred to the to the intensive care unit after being extubated. Estimated blood loss was 300 cc. This morning, the patient is awake and alert. Denies having any nausea vomiting or abdominal pain. The white cell count dropped from 21 down to 17. The hemoglobin is currently at 10.1. Sodium levels at 131, BUN is 9 with a creatinine of 0.5. LFTs show an AST of 56, ALT of 56, alkaline phosphatase of 73. Amylase and lipase are within normal limits. The chest x- ray from 03/22/2024 showed no acute cardiopulmonary process and the patient has a right IJ triple-lumen catheter in place. The patient is currently on IV Zosyn. The patient is also on normal citrate of 75 cc an hour. Dilaudid for pain control. Sinus rhythm. No other significant events overnight. Patient is currently postop day #1. 03/24/2024, the patient is doing well. He is on room air oxygen. No signs of any septicemia the patient remains on IV Zosyn. The white cell count is at 18.7. Hemoglobin is 9.8. Tolerating diet. Passing flatus. Ambulating. SYLVIE drain is serosanguineous. On 03/25/2024, the patient has some limited abdominal distention. No significant abdominal pain. He is postop day #3. White cell count remains elevated at 18.7 and the patient is still on IV Zosyn. He is on clear liquid diet. Passing flatus. General surgery on the case. Encountered urinary ret ention and a Andrew catheter was also inserted by urology. No fever. He was having some nausea last night and currently is free of any nausea. Urine output is adequate for now. Objective - Vital Signs Vital signs: Vital Signs Temp 97.9 F 03/25/24 07:15 Pulse 106 H 03/25/24 07:15 Resp 18 03/25/24 07:15 BP 142/89 03/25/24 07:15 Pulse Ox 95 03/25/24 07:15 FiO2 Intake & Output 03/24/24 03/25/24 03/25/24 18:59 06:59 18:59 Intake Total 100 Output Total 322 600 580 Balance -322 -600 -480 Intake: Oral 100 Output: Drainage 22 580 Right Abdomen 22 580 Urine 300 600 Other: Voiding Method Indwelling Catheter Indwelling Catheter ABP, PAP, CO, CI - Last Documented Arterial Blood Pressure 154/73 - Exam The patient appeared well nourished and normally developed. Vital signs as documented. Head exam is unremarkable. No scleral icterus or corneal arcus noted. Neck is without jugular venous distension, thyromegaly, or carotid bruits. Carotid upstrokes are brisk bilaterally. Lungs are clear to auscultation and percussion. Cardiac exam reveals the PMI to be normally sized and situated. Rhythm is regular. First and second heart sounds normal. No murmurs, rubs or gallops. Abdominal exam reveals diminished bowel sounds and the patient has a scar in his right upper quadrant which is dry clean and intact and the SYLVIE drain is serosanguineous output, no masses, no organomegaly and no aortic enlargement. Extremities are nonedematous and both femoral and pedal pulses are normal. Examination of the skin revealed no evidence of significant rashes, suspicious appearing nevi or other concerning lesions. Neurologically, the patient is awake and alert and the patient does not have any focal neurological deficit. Cranial nerves are essentially intact. - Labs CBC & Chem 7: 03/25/24 03:36 03/25/24 03:36 Labs: Abnormal Lab Results - Last 24 Hours (Table) 03/24/24 03/24/24 Range/Units 11:11 11:11 WBC 18.7 H (3.8-10.6) k/uL RBC 3.50 L (4.30-5.90) m/uL Hgb 9.8 L (13.0-17.5) gm/dL Hct 32.0 L (39.0-53.0) % MCHC 30.6 L (31.0-37.0) g/dL Neutrophils # 16.1 H (1.3-7.7) k/uL Lymphocytes # 0.8 L (1.0-4.8) k/uL Monocytes # 1.1 H (0-1.0) k/uL Sodium 133 L (137-145) mmol/L BUN 6 L (9-20) mg/dL Creatinine 0.59 L (0.66-1.25) mg/dL Calcium 8.1 L (8.4-10.2) mg/dL Total Protein 5.8 L (6.3-8.2) g/dL Albumin 3.0 L (3.5-5.0) g/dL Microbiology - Last 24 Hours (Table) 03/22/24 15:17 Blood Culture - Preliminary Blood Assessment and Plan Plan: Acute gangrenous cholecystitis and the patient had a open cholecystectomy the patient is postop day # 3. Patient encountered portal vein laceration and bleed that was clamped and sutured and bleeding has been controlled. SYLVIE drain is in place and the output is serosanguineous and the patient is hemodynamically stable, currently on IV Zosyn. Abdominal pain secondary to above Acute leukocytosis, white cell count remains elevated Hypertension Osteoarthritis Acid reflux Urinary retention post Andrew catheter insertion Plan Patient is currently on room air oxygen Provide incentive spirometer Continue IV Zosyn Monitor output from the SYLVIE drain Clear liquid diet Increase mobility and ambulation Watch for any signs of ileus Andrew catheter is in place Heparin subcu for DVT prophylaxis [place] for pain control in combination with Dilaudid for breakthrough pain Will continue to follow
--- NOTE | 2024-03-25 13:55 | CT ---
EXAMINATION TYPE: CT chest wo con DATE OF EXAM: 03/25/2024 COMPARISON: None CLINICAL INDICATION: Male, 64 years old with history of cap/leucocytosis; PHH, cap/ elevated WBC TECHNIQUE: CT scan of the thorax is performed without IV contrast. CT DLP: [address] CTDI: mGy Automated exposure control for dose reduction was used. FINDINGS: There are bibasilar infiltrates with air bronchograms, left greater than right. There are small bilat eral pleural effusions. The great vessels the chest are normal. There is no mediastinal, hilar or axillary adenopathy. The osseous structures are intact. Limited scanning through the upper abdomen reveals cholecystectomy. There is a stent within the liver parenchyma. IMPRESSION: Bibasilar partially consolidative infiltrates with small effusions, left greater than right. The find ings could indicate aspiration pneumonia [facility] Yazmin Gage, , 03/25/2024 1:53 PM
[2024-03-25 17:22] LABS: Appearance,Urine Clear (Clear); Bilirubin,Urine Negative (Negative); Blood,Urine Small (Negative); Color,Urine Yellow; Glucose,Urine (UA) Negative (Negative); Ketones,Urine 4+ (Negative); Leukocyte Esterase,Urine Trace (Negative); Mucus,Urine Rare /hpf; Nitrite,Urine Negative (Negative); Protein,Urine Trace (Negative); RBC,Urine 23 /hpf (0-5); Specific Gravity,Urine 1.027 (1.001-1.035); WBC,Urine 4 /hpf (0-5)
[2024-03-25] MEDS: AZITHROMYCIN 500 MG in SODIUM CHLORIDE 0.9% 250 ML IVPB SCH (20:57)
--- NOTE | 2024-03-26 04:27 | PN ---
PROGRESS NOTE He had urinary retention post surgery. Dr. Rm saw him for the successful catheter. Surgically, the patient is improving. His white count is down to 18.75, hemoglobin is 9.1, sodium 134, BUN is 12, and creatinine is 0.6. The patient has cholecystitis, status post cholecystectomy. He has SIRS, status post gangrenous cholecystitis, enteric gram-negative bacteria. No operating cultures were done. Continue on Zosyn. Prognosis is guarded. Continue current treatment. Please see further orders. MMODL / IJN: [id number] /
[2024-03-26 08:31] LABS: HGB 8.6 g/dL (13.0-17.0); MCH 28.7 pg (27.0-32.0); MCHC 33.1 g/dL (32.0-37.0); MCV 86.7 FL (80.0-97.0); NRBC Per 100 WBC 0 X 10*3/uL (0.00-0.01); Platelet Count 426 X 10*3/uL (140-440); RDW 13.1 % (11.5-14.5); WBC 12.42 X 10*3/uL (4.50-10.00)
[2024-03-26 08:46] LABS: ALT 41 U/L (10-49); AST 35 U/L (14-35); Albumin 2.8 g/dL (3.8-4.9); Albumin/Globulin Ratio 1.08 Ratio (1.60-3.17); Alkaline Phosphatase 136 U/L (41-126); Blood Urea Nitrogen 11.4 mg/dL (9.0-27.0); Calcium 7.8 mg/dL (8.7-10.3); Carbon Dioxide 21.8 mmol/L (21.6-31.8); Chloride 101 mmol/L (96-109); Globulin 2.6 g/dL (1.6-3.3); Glucose 85 mg/dL (70-110); Potassium 3.5 mmol/L (3.5-5.5); Sodium 136 mmol/L (135-145); Total Bilirubin 0.3 mg/dL (0.3-1.2); Total Protein 5.4 g/dL (6.2-8.2)
[2024-03-26 09:41] LABS: Band Neutrophils % 2 %; Basophils # (M) 0.12 X 10*3/uL (0.00-0.10); Eosinophils # (M) 0.12 X 10*3/uL (0.04-0.35); Lymphocytes # (M) 1.61 X 10*3/uL (0.90-5.00); Monocytes # (M) 1.24 X 10*3/uL (0.20-1.00); Myelocytes % 1 % (0-0); Neutrophils # (M) 9.19 X 10*3/uL (1.80-7.70); Neutrophils % (M) 72 %
--- NOTE | 2024-03-26 09:41 | P.PN ---
Subjective Progress Note Date: 03/26/24 Principal diagnosis: Gangrenous cholecystitis Patient sitting up in bed today. Feels well. No nausea or vomiting. Tolerating clears. He is hungry for more to eat. Andrew catheter remains in place. Patient somewhat concerned about removing the Andrew catheter since urology had to replace it themselves. SYLVIE serous. White blood cell count 12.4, hemoglobin 8.6. Objective - Vital Signs Vital signs: Vital Signs Temp 98.0 F 03/26/24 07:25 Pulse 96 03/26/24 07:25 Resp 18 03/26/24 07:25 BP 154/89 03/26/24 07:25 Pulse Ox 97 03/26/24 07:25 FiO2 Intake & Output 03/25/24 03/26/24 03/26/24 18:59 06:59 18:59 Intake Total 400 250 Output Total 1105 360 635 Balance -931 -360 -499 Intake: Oral 400 250 Output: Drainage 805 60 35 Right Abdomen 805 60 35 Urine 300 300 600 Other: Voiding Method Indwelling Catheter Indwelling Catheter # Bowel Movements 1 1 ABP, PAP, CO, CI - Last Documented Arterial Blood Pressure 154/73 - Exam Abdomen: Soft, mild tenderness, dressing clean and dry, SYLVIE serous - Labs CBC & Chem 7: 03/26/24 03:48 03/26/24 03:48 Labs: Abnormal Lab Results - Last 24 Hours (Table) 03/25/24 03/25/24 03/25/24 Range/Units 03:36 03:36 17:02 WBC 18.75 H (4.50-10.00) X 10*3/uL RBC 3.27 L (4.40-5.60) X 10*6/uL Hgb 9.1 L (13.0-17.0) g/dL Hct 28.6 L (39.6-50.0) % MCHC 31.8 L (32.0-37.0) g/dL MPV 9.0 L (9.5-12.2) FL Immature Gran # 0.53 H (0.00-0.04) X 10*3/uL Neutrophils # 14.14 H (1.80-7.70) X 10*3/uL Monocytes # 1.84 H (0.20-1.00) X 10*3/uL Sodium 134 L (135-145) mmol/L Carbon Dioxide 20.3 L (21.6-31.8) mmol/L Anion Gap 13.70 H (4.00-12.00) mmol/L Creatinine (0.6-1.5) mg/dL BUN/Creatinine Ratio 20.50 H (12.00-20.00) Ratio Calcium 8.0 L (8.7-10.3) mg/dL Alkaline Phosphatase (41-126) U/L Total Protein 5.3 L (6.2-8.2) g/dL Albumin 2.9 L (3.8-4.9) g/dL Albumin/Globulin Ratio 1.21 L (1.60-3.17) Ratio Urine Protein Trace H (Negative) Urine Ketones 4+ H (Negative) Urine Blood Small H (Negative) Ur Leukocyte Esterase Trace H (Negative) Urine RBC 23 H (0-5) /hpf Urine Mucus Rare H (None) /hpf 03/26/24 03/26/24 Range/Units 03:48 03:48 WBC 12.42 H (4.50-10.00) X 10*3/uL RBC 3.00 L (4.40-5.60) X 10*6/uL Hgb 8.6 L (13.0-17.0) g/dL Hct 26.0 L (39.6-50.0) % MCHC (32.0-37.0) g/dL MPV 9.0 L (9.5-12.2) FL Immature Gran # (0.00-0.04) X 10*3/uL Neutrophils # (1.80-7.70) X 10*3/uL Monocytes # (0.20-1.00) X 10*3/uL Sodium (135-145) mmol/L Carbon Dioxide (21.6-31.8) mmol/L Anion Gap 13.20 H (4.00-12.00) mmol/L Creatinine 0.5 L (0.6-1.5) mg/dL BUN/Creatinine Ratio 22.80 H (12.00-20.00) Ratio Calcium 7.8 L (8.7-10.3) mg/dL Alkaline Phosphatase 136 H (41-126) U/L Total Protein 5.4 L (6.2-8.2) g/dL Albumin 2.8 L (3.8-4.9) g/dL Albumin/Globulin Ratio 1.08 L (1.60-3.17) Ratio Urine Protein (Negative) Urine Ketones (Negative) Urine Blood (Negative) Ur Leukocyte Esterase (Negative) Urine RBC (0-5) /hpf Urine Mucus (None) /hpf Assessment and Plan (1) Acute cholecystitis Narrative/Plan: Patient doing fairly well today. Will keep the Andrew catheter until tomorrow. Advance diet as tolerated. Ambulate. Recheck labs tomorrow. Current Visit: Yes Status: Acute Code(s): K81.0 - ACUTE CHOLECYSTITIS SNOMED Code(s): 23651937
--- NOTE | 2024-03-26 12:38 | P.PN ---
Subjective Progress Note Date: 03/26/24 Principal diagnosis: Reason for follow-up is acute gangrenous cholecystitis and leukocytosis Patient is a 64-year-old male with a past medical history significant for hypertension reflux osteoarthritis admitted to hospital with right upper quad abdominal pain has been diagnosed with acute gangrenous cholecystitis status post open cholecystectomy. On today's evaluation that is 03/26/2024,the patient denies any fever or any chills, patient is breathing comfortably on room air, the patient denies chest pain shortness of breath and no significant cough, patient denies nausea vomiting and abdominal pain is currently controlled Andrew catheter has been discontinued. Patient white count is down to 12.42 creatinine 0.5 UA was not significantly positive blood cultures are pending Objective - Vital Signs Vital signs: Vital Signs Temp 98.0 F 03/26/24 07:25 Pulse 96 03/26/24 07:25 Resp 18 03/26/24 07:25 BP 154/89 03/26/24 07:25 Pulse Ox 97 03/26/24 07:25 FiO2 Intake & Output 03/25/24 03/26/24 03/26/24 18:59 06:59 18:59 Intake Total 400 250 Output Total 1105 360 635 Balance -705 -360 -385 Intake: Oral 400 250 Output: Drainage 805 60 35 Right Abdomen 805 60 35 Urine 300 300 600 Other: Voiding Method Indwelling Catheter Indwelling Catheter # Bowel Movements 1 1 ABP, PAP, CO, CI - Last Documented Arterial Blood Pressure 154/73 - Exam GENERAL DESCRIPTION: Middle-age y male lying in bed in no distress RESPIRATORY SYSTEM: Unlabored breathing , decreased breath sounds at bases HEART: S1 S2 regular rate and rhythm , ABDOMEN: Soft , mild tenderness EXTREMITIES: No edema feet - Labs CBC & Chem 7: 03/26/24 03:48 03/26/24 03:48 Labs: Abnormal Lab Results - Last 24 Hours (Table) 03/25/24 03/26/24 03/26/24 Range/Units 17:02 03:48 03:48 WBC 12.42 H (4.50-10.00) X 10*3/uL RBC 3.00 L (4.40-5.60) X 10*6/uL Hgb 8.6 L (13.0-17.0) g/dL Hct 26.0 L (39.6-50.0) % MPV 9.0 L (9.5-12.2) FL Neutrophils # (Manual) 9.19 H (1.80-7.70) X 10*3/uL Monocytes # (Manual) 1.24 H (0.20-1.00) X 10*3/uL Basophils # (Manual) 0.12 H (0.00-0.10) X 10*3/uL Anion Gap 13.20 H (4.00-12.00) mmol/L Creatinine 0.5 L (0.6-1.5) mg/dL BUN/Creatinine Ratio 22.80 H (12.00-20.00) Ratio Calcium 7.8 L (8.7-10.3) mg/dL Alkaline Phosphatase 136 H (41-126) U/L Total Protein 5.4 L (6.2-8.2) g/dL Albumin 2.8 L (3.8-4.9) g/dL Albumin/Globulin Ratio 1.08 L (1.60-3.17) Ratio Urine Protein Trace H (Negative) Urine Ketones 4+ H (Negative) Urine Blood Small H (Negative) Ur Leukocyte Esterase Trace H (Negative) Urine RBC 23 H (0-5) /hpf Urine Mucus Rare H (None) /hpf Assessment and Plan (1) Acute cholecystitis Current Visit: Yes Status: Acute Code(s): K81.0 - ACUTE CHOLECYSTITIS SNOMED Code(s): 19399507 (2) Sepsis Current Visit: Yes Status: Acute Code(s): A41.9 - SEPSIS, UNSPECIFIED ORGANISM SNOMED Code(s): 00301764 Plan: 1patient presented to hospital with sepsis in this patient who did have fever elevated white count mild tachycardia meeting criteria for SIRS source is acute gangrenous cholecystitis status post open cholecystectomy and will need to cover for the enteric gram-negative to be the likely pathogen unfortunately no OR cultures were done. 2patient is afebrile and the patient white count is trending down urine was not significantly positive we will continue the patient on Zosyn and monitor clinical course closely Dictation was produced using [employer] dictation software. please excuse any grammatical, word or spelling errors. Time with Patient: Less than 30
--- NOTE | 2024-03-26 12:38 | P.PN ---
Subjective Progress Note Date: 03/25/24 Principal diagnosis: Reason for follow-up is acute gangrenous cholecystitis and leukocytosis Patient is a 64-year-old male with a past medical history significant for hypertension reflux osteoarthritis admitted to hospital with right upper quad abdominal pain has been diagnosed with acute gangrenous cholecystitis status post open cholecystectomy. On today's evaluation that is 03/25/2024, Patient is afebrile this morning patient denies having any chest pain shortness of breath or cough, the patient is currently on room air, patient abdominal pain is currently controlled no nausea vomiting or diarrhea. Patient white count is 18.75 about the same as yesterday creatinine 0.6 Objective - Vital Signs Vital signs: Vital Signs Temp 97.9 F 03/25/24 07:15 Pulse 106 H 03/25/24 07:15 Resp 18 03/25/24 07:15 BP 142/89 03/25/24 07:15 Pulse Ox 95 03/25/24 07:15 FiO2 Intake & Output 03/24/24 03/25/24 03/25/24 18:59 06:59 18:59 Intake Total 100 Output Total 322 600 725 Balance -900 -659 -418 Intake: Oral 100 Output: Drainage 22 725 Right Abdomen 22 725 Urine 300 600 Other: Voiding Method Indwelling Catheter Indwelling Catheter ABP, PAP, CO, CI - Last Documented Arterial Blood Pressure 154/73 - Exam GENERAL DESCRIPTION: Middle-age y male lying in bed in no distress RESPIRATORY SYSTEM: Unlabored breathing , decreased breath sounds at bases HEART: S1 S2 regular rate and rhythm , ABDOMEN: Soft , mild tenderness EXTREMITIES: No edema feet - Labs CBC & Chem 7: 03/25/24 03:36 03/25/24 03:36 Labs: Abnormal Lab Results - Last 24 Hours (Table) 03/25/24 03/25/24 Range/Units 03:36 03:36 WBC 18.75 H (4.50-10.00) X 10*3/uL RBC 3.27 L (4.40-5.60) X 10*6/uL Hgb 9.1 L (13.0-17.0) g/dL Hct 28.6 L (39.6-50.0) % MCHC 31.8 L (32.0-37.0) g/dL MPV 9.0 L (9.5-12.2) FL Immature Gran # 0.53 H (0.00-0.04) X 10*3/uL Neutrophils # 14.14 H (1.80-7.70) X 10*3/uL Monocytes # 1.84 H (0.20-1.00) X 10*3/uL Sodium 134 L (135-145) mmol/L Carbon Dioxide 20.3 L (21.6-31.8) mmol/L Anion Gap 13.70 H (4.00-12.00) mmol/L BUN/Creatinine Ratio 20.50 H (12.00-20.00) Ratio Calcium 8.0 L (8.7-10.3) mg/dL Total Protein 5.3 L (6.2-8.2) g/dL Albumin 2.9 L (3.8-4.9) g/dL Albumin/Globulin Ratio 1.21 L (1.60-3.17) Ratio Microbiology - Last 24 Hours (Table) 03/22/24 15:17 Blood Culture - Preliminary Blood Assessment and Plan (1) Acute cholecystitis Current Visit: Yes Status: Acute Code(s): K81.0 - ACUTE CHOLECYSTITIS SNOMED Code(s): 21562364 (2) Sepsis Current Visit: Yes Status: Acute Code(s): A41.9 - SEPSIS, UNSPECIFIED ORGANISM SNOMED Code(s): 33590743 Plan: 1patient presented to hospital with sepsis in this patient who did have fever elevated white count mild tachycardia meeting criteria for SIRS source is acute gangrenous cholecystitis status post open cholecystectomy and will need to cover for the enteric gram-negative to be the likely pathogen unfortunately no OR cultures were done. 2patient is afebrile white count still elevated slightly concerning seem to have issues with the urinary retention urine culture has been requested continue with Zosyn Dictation was produced using [employer] software. please excuse any grammatical, word or spelling errors.
--- NOTE | 2024-03-26 13:54 | P.PN ---
Subjective Progress Note Date: 03/26/24 03/23/2024, the patient is being seen for a consultation in the intensive care unit. The patient had a complicated cholecystectomy yesterday for an acute gangrenous cholecystitis. Initially, the procedure was attempted to be laparoscopic and it was converted to open. The patient during the procedure enc ountered a laceration of the portal vein that was clamped. The area was inspected by vascular surgery and the bleeding was essentially controlled. Ultimately, the wound was closed in a SYLVIE drain was placed and the patient was transferred to the to the intensive care unit after being extubated. Estimated blood loss was 300 cc. This morning, the patient is awake and alert. Denies having any nausea vomiting or abdominal pain. The white cell count dropped from 21 down to 17. The hemoglobin is currently at 10.1. Sodium levels at 131, BUN is 9 with a creatinine of 0.5. LFTs show an AST of 56, ALT of 56, alkaline phosphatase of 73. Amylase and lipase are within normal limits. The chest x- ray from 03/22/2024 showed no acute cardiopulmonary process and the patient has a right IJ triple-lumen catheter in place. The patient is currently on IV Zosyn. The patient is also on normal citrate of 75 cc an hour. Dilaudid for pain control. Sinus rhythm. No other significant events overnight. Patient is currently postop day #1. 03/24/2024, the patient is doing well. He is on room air oxygen. No signs of any septicemia the patient remains on IV Zosyn. The white cell count is at 18.7. Hemoglobin is 9.8. Tolerating diet. Passing flatus. Ambulating. SYLVIE drain is serosanguineous. On 03/25/2024, the patient has some limited abdominal distention. No significant abdominal pain. He is postop day #3. White cell count remains elevated at 18.7 and the patient is still on IV Zosyn. He is on clear liquid diet. Passing flatus. General surgery on the case. Encountered urinary rete ntion and a Andrew catheter was also inserted by urology. No fever. He was having some nausea last night and currently is free of any nausea. Urine output is adequate for now. The patient is seen today March 26, 2024 in follow-up on the regular medical floor. He is currently sitting up in a chair at the bedside. Awake and alert in no acute distress. Maintaining good O2 saturations in the 90s on room air. Working well with the incentive spirometer. Continued on Zosyn and azithromycin. Andrew catheter remains in place secondary to urinary retention. White count 12.4. Hemoglobin 8.6. Platelets 426. Sodium 136. Potassium 3.5. Bicarb 22. BUN 11. Creatinine 0.5. Glucose 85. CT scan of the chest reveals bibasilar partially consolidated infiltrates with small effusions left greater than right. Objective - Vital Signs Vital signs: Vital Signs Temp 98.0 F 03/26/24 07:25 Pulse 96 03/26/24 07:25 Resp 18 03/26/24 07:25 BP 154/89 03/26/24 07:25 Pulse Ox 97 03/26/24 07:25 FiO2 Intake & Output 03/25/24 03/26/24 03/26/24 18:59 06:59 18:59 Intake Total 400 250 Output Total 1105 360 635 Balance -705 360 -385 Intake: Oral 400 250 Output: Drainage 805 60 35 Right Abdomen 805 60 35 Urine 300 300 600 Other: Voiding Method Indwelling Catheter Indwelling Catheter # Bowel Movements 1 1 ABP, PAP, CO, CI - Last Documented Arterial Blood Pressure 154/73 - Exam GENERAL EXAM: Alert, active, on room air, fairly comfortable in no apparent distress. HEAD: Normocephalic. EYES: Normal reaction of pupils, equal size. NOSE: Clear with pink turbinates. THROAT: No erythema or exudates. NECK: No masses, no JVD. CHEST: No chest wall deformity. LUNGS: Equal air entry with no crackles, wheeze, rhonchi or dullness. CVS: S1 and S2 normal with no audible murmur, regular rhythm. ABDOMEN: Dressing dry and intact. SYLVIE drain in place with serous fluid returned. No hepatosplenomegaly, normal bowel sounds, no guarding or rigidity. SPINE: No scoliosis or deformity SKIN: No rashes CENTRAL NERVOUS SYSTEM: No focal deficits, tone is normal in all 4 extremities. EXTREMITIES: There is no peripheral edema. No clubbing, no cyanosis. Peripheral pulses are intact. - Labs CBC & Chem 7: 03/26/24 03:48 03/26/24 03:48 Labs: Abnormal Lab Results - Last 24 Hours (Table) 03/25/24 03/26/24 03/26/24 Range/Units 17:02 03:48 03:48 WBC 12.42 H (4.50-10.00) X 10*3/uL RBC 3.00 L (4.40-5.60) X 10*6/uL Hgb 8.6 L (13.0-17.0) g/dL Hct 26.0 L (39.6-50.0) % MPV 9.0 L (9.5-12.2) FL Neutrophils # (Manual) 9.19 H (1.80-7.70) X 10*3/uL Monocytes # (Manual) 1.24 H (0.20-1.00) X 10*3/uL Basophils # (Manual) 0.12 H (0.00-0.10) X 10*3/uL Anion Gap 13.20 H (4.00-12.00) mmol/L Creatinine 0.5 L (0.6-1.5) mg/dL BUN/Creatinine Ratio 22.80 H (12.00-20.00) Ratio Calcium 7.8 L (8.7-10.3) mg/dL Alkaline Phosphatase 136 H (41-126) U/L Total Protein 5.4 L (6.2-8.2) g/dL Albumin 2.8 L (3.8-4.9) g/dL Albumin/Globulin Ratio 1.08 L (1.60-3.17) Ratio Urine Protein Trace H (Negative) Urine Ketones 4+ H (Negative) Urine Blood Small H (Negative) Ur Leukocyte Esterase Trace H (Negative) Urine RBC 23 H (0-5) /hpf Urine Mucus Rare H (None) /hpf Assessment and Plan Assessment: Acute gangrenous cholecystitis and the patient had a open cholecystectomy the patient is postop day # 4. Patient encountered portal vein laceration and bleed that was clamped and sutured and bleeding has been controlled. SYLVIE drain is in place and the output is serosanguineous and the patient is hemodynamically stable, currently on IV Zosyn and azithromycin. Abdominal pain secondary to above Acute leukocytosis, white cell count remains elevated Hypertension Osteoarthritis Acid reflux Urinary retention post Andrew catheter insertion Plan: The patient was seen and evaluated CT scan of the chest, labs and medications reviewed Currently stable and on room air Working well with the incentive spirometer Antibiotics per ID service Heparin for DVT prophylaxis We will continue to follow I have personally seen and examined the patient, performed the documentation and the assessment and plan as written. Number of minutes spent on the visit: 10 Dictation was produced using [employer] dictation software. Please excuse any grammatical, word or spelling errors.
--- NOTE | 2024-03-26 20:10 | CDI ---
Documentation Clarification Form Date: 03/26/2024 08:08:32 PM From: Priscilla Maguire RN, CCDS Phone: [phone] Admit Date: 03/22/2024 11:47:00 AM Patient Name: Brian Miller Visit Number: [id number] Discharge Date: ATTENTION: The Clinical Documentation Specialists (CDI) and [facility] Coding Staff appreciate your assistance in clarifying documentation. Please respond to the clarification below the line at the bottom and electronically sign. The CDI & [facility] Coding staff will review the response and follow-up if needed. Please note: Queries are made part of the Legal Health Record. If you have any questions, please contact the author of this message via ITS. Doctor/Provider: Marshall Wills The patient sepsis documented in the ID consult and subsequent progress notes Based on this information and the findings below, is there an additional diagnosis that is clinically appropriate for this patient? History/Risk Factors: GERD/Reflux, Hypertension, Osteoarthritis (OA) Clinical Indicators: 64-year-old male presenting to the ED or chief complaint of right upper quadrant abdominal pain and nausea 03/22 VS: 142/87 119 20 100.2 98% RA, 141/94 103 18 100.0 97 %RA 03/22 Labs: WBC 21.6, Neutrophils 18.4, Na+ 131, lactic acid1.0 03/22 Blood cultures: No growth after 48 hours 03/23 ID Consult: patient presented to hospital with sepsis in this patient who did have fever elevated white count mild tachycardia meeting criteria for SIRS source is acute gangrenous cholecystitis status post open cholecystectomy and will need to cover for the enteric gram-negative to be the likely pathogen unfortunately no OR cultures were done. Treatment: Zosyn 3.375 GM Q 8 HRS Azithromycin 500 MG IVPB Q 24 HRS .9 NS 1,000 MLS Bolus 03/22 Is there an additional diagnosis that is clinically appropriate for this patient? [ ] Sepsis, present on admission [ ] No additional diagnosis/not clinically significant [ ] Other, please specify [ ] Unable to determine SIRS Criteria: 2 or more of the following may indicate SIRS Temperature < 96.8F (36C) or > 101.0F (38.3C) Heart Rate > 90 bpm Respiratory Rate > 20 breaths/min or PaCO2 < 32 mmHg White Blood Cell Count > 12,000 or < 4,000 cells/mm3 or > 10% bands (Template Last Reviewed: May 2022) MTDD
[2024-03-27 09:36] LABS: ALT 46 U/L (10-49); AST 40 U/L (14-35); Albumin 2.8 g/dL (3.8-4.9); Albumin/Globulin Ratio 1.22 Ratio (1.60-3.17); Alkaline Phosphatase 135 U/L (41-126); BUN/Creat Ratio 8.83 Ratio (12.00-20.00); Blood Urea Nitrogen 5.3 mg/dL (9.0-27.0); Calcium 7.8 mg/dL (8.7-10.3); Carbon Dioxide 23.3 mmol/L (21.6-31.8); Chloride 101 mmol/L (96-109); Globulin 2.3 g/dL (1.6-3.3); Glucose 94 mg/dL (70-110); Potassium 3.3 mmol/L (3.5-5.5); Sodium 134 mmol/L (135-145); Total Bilirubin 0.2 mg/dL (0.3-1.2); Total Protein 5.1 g/dL (6.2-8.2)
[2024-03-27 09:53] LABS: Basophils # (M) 0.23 X 10*3/uL (0.00-0.10); Eosinophils # (M) 0.23 X 10*3/uL (0.04-0.35); HGB 8.5 g/dL (13.0-17.0); Lymphocytes # (M) 1.24 X 10*3/uL (0.90-5.00); MCH 28.5 pg (27.0-32.0); MCHC 32.7 g/dL (32.0-37.0); MCV 87.2 FL (80.0-97.0); Mean Platelet Volume 8.9 FL (9.5-12.2); Metamyelocytes % 2 % (0-0); Monocytes # (M) 1.02 X 10*3/uL (0.20-1.00); Myelocytes % 4 % (0-0); NRBC Per 100 WBC 0 X 10*3/uL (0.00-0.01); Neutrophils # (M) 7.91 X 10*3/uL (1.80-7.70); Neutrophils % (M) 70 %; Platelet Count 463 X 10*3/uL (140-440); RBC 2.98 X 10*6/uL (4.40-5.60); RDW 13.1 % (11.5-14.5)
--- NOTE | 2024-03-27 12:56 | P.PN ---
Subjective Progress Note Date: 03/27/24 03/23/2024, the patient is being seen for a consultation in the intensive care unit. The patient had a complicated cholecystectomy yesterday for an acute gangrenous cholecystitis. Initially, the procedure was attempted to be laparoscopic and it was converted to open. The patient during the procedure enc ountered a laceration of the portal vein that was clamped. The area was inspected by vascular surgery and the bleeding was essentially controlled. Ultimately, the wound was closed in a SYLVIE drain was placed and the patient was transferred to the to the intensive care unit after being extubated. Estimated blood loss was 300 cc. This morning, the patient is awake and alert. Denies having any nausea vomiting or abdominal pain. The white cell count dropped from 21 down to 17. The hemoglobin is currently at 10.1. Sodium levels at 131, BUN is 9 with a creatinine of 0.5. LFTs show an AST of 56, ALT of 56, alkaline phosphatase of 73. Amylase and lipase are within normal limits. The chest x- ray from 03/22/2024 showed no acute cardiopulmonary process and the patient has a right IJ triple-lumen catheter in place. The patient is currently on IV Zosyn. The patient is also on normal citrate of 75 cc an hour. Dilaudid for pain control. Sinus rhythm. No other significant events overnight. Patient is currently postop day #1. 03/24/2024, the patient is doing well. He is on room air oxygen. No signs of any septicemia the patient remains on IV Zosyn. The white cell count is at 18.7. Hemoglobin is 9.8. Tolerating diet. Passing flatus. Ambulating. SYLVIE drain is serosanguineous. On 03/25/2024, the patient has some limited abdominal distention. No significant abdominal pain. He is postop day #3. White cell count remains elevated at 18.7 and the patient is still on IV Zosyn. He is on clear liquid diet. Passing flatus. General surgery on the case. Encountered urinary rete ntion and a Andrew catheter was also inserted by urology. No fever. He was having some nausea last night and currently is free of any nausea. Urine output is adequate for now. The patient is seen today March 26, 2024 in follow-up on the regular medical floor. He is currently sitting up in a chair at the bedside. Awake and alert in no acute distress. Maintaining good O2 saturations in the 90s on room air. Working well with the incentive spirometer. Continued on Zosyn and azithromycin. Andrew catheter remains in place secondary to urinary retention. White count 12.4. Hemoglobin 8.6. Platelets 426. Sodium 136. Potassium 3.5. Bicarb 22. BUN 11. Creatinine 0.5. Glucose 85. CT scan of the chest reveals bibasilar partially consolidated infiltrates with small effusions left greater than right. The patient is seen today March 27, 2024 in follow-up on the regular medical floor. He is currently up in a chair at the bedside. Awake and alert in no acute distress. Maintaining O2 saturations in the mid 90s on room air. Working well with the incentive spirometer. He is continued on Zosyn and azithromycin per ID service. Heparin for DVT prophylaxis. Blood cultures revealed no growth. White count 11.3. Hemoglobin 8.5. Platelets 463. Sodium 134. Potassium 3.3. Bicarb 23. BUN 5. Creatinine 0.6. Glucose 94. Alk phos 135. Objective - Vital Signs Vital signs: Vital Signs Temp 98.4 F 03/27/24 07:30 Pulse 92 03/27/24 07:30 Resp 17 03/27/24 07:30 BP 157/95 03/27/24 07:30 Pulse Ox 96 03/27/24 07:30 FiO2 Intake & Output 03/26/24 03/27/24 03/27/24 18:59 06:59 18:59 Intake Total 250 250 Output Total 1335 1330 50 Balance -1085 -1330 200 Intake: Oral 250 250 Output: Drainage 35 30 50 Right Abdomen 35 30 50 Urine 1300 1300 Other: Voiding Method Urinal # Voids 1 # Bowel Movements 2 2 1 ABP, PAP, CO, CI - Last Documented Arterial Blood Pressure 154/73 - Exam GENERAL EXAM: Alert, pleasant 64-year-old male, up in a chair, on room air, comfortable in no apparent distress. HEAD: Normocephalic. EYES: Normal reaction of pupils, equal size. NOSE: Clear with pink turbinates. THROAT: No erythema or exudates. NECK: No masses, no JVD. CHEST: No chest wall deformity. LUNGS: Equal air entry with no crackles, wheeze, rhonchi or dullness. CVS: S1 and S2 normal with no audible murmur, regular rhythm. ABDOMEN: Dressing dry and intact. SYLVIE drain in place with serous fluid returned. No hepatosplenomegaly, normal bowel sounds, no guarding or rigidity. SPINE: No scoliosis or deformity SKIN: No rashes CENTRAL NERVOUS SYSTEM: No focal deficits, tone is normal in all 4 extremities. EXTREMITIES: There is no peripheral edema. No clubbing, no cyanosis. Peripheral pulses are intact. - Labs CBC & Chem 7: 03/27/24 02:53 03/27/24 02:53 Labs: Abnormal Lab Results - Last 24 Hours (Table) 03/27/24 03/27/24 Range/Units 02:53 02:53 WBC 11.30 H (4.50-10.00) X 10*3/uL RBC 2.98 L (4.40-5.60) X 10*6/uL Hgb 8.5 L (13.0-17.0) g/dL Hct 26.0 L (39.6-50.0) % Plt Count 463 H (140-440) X 10*3/uL MPV 8.9 L (9.5-12.2) FL Neutrophils # (Manual) 7.91 H (1.80-7.70) X 10*3/uL Monocytes # (Manual) 1.02 H (0.20-1.00) X 10*3/uL Basophils # (Manual) 0.23 H (0.00-0.10) X 10*3/uL Sodium 134 L (135-145) mmol/L Potassium 3.3 L (3.5-5.5) mmol/L BUN 5.3 L (9.0-27.0) mg/dL BUN/Creatinine Ratio 8.83 L (12.00-20.00) Ratio Calcium 7.8 L (8.7-10.3) mg/dL Total Bilirubin 0.2 L (0.3-1.2) mg/dL AST 40 H (14-35) U/L Alkaline Phosphatase 135 H (41-126) U/L Total Protein 5.1 L (6.2-8.2) g/dL Albumin 2.8 L (3.8-4.9) g/dL Albumin/Globulin Ratio 1.22 L (1.60-3.17) Ratio Assessment and Plan Assessment: Acute gangrenous cholecystitis and the patient had a open cholecystectomy the patient is postop day # 4. Patient encountered portal vein laceration and bleed that was clamped and sutured and bleeding has been controlled. SYLVIE drain is in place and the output is serosanguineous and the patient is hemodynamically stable, currently on IV Zosyn and azithromycin. Abdominal pain secondary to above Acute leukocytosis, white cell count remains elevated Hypertension Osteoarthritis Acid reflux Urinary retention, requiring Andrew catheter insertion Plan: The patient was seen and evaluated Labs and medications reviewed Stable and on room air Working well with the incentive spirometer Antibiotics per ID service Heparin for DVT prophylaxis We will continue to follow I have personally seen and examined the patient, performed the documentation and the assessment and plan as written. Number of minutes spent on the visit: 10 Dictation was produced using [employer] dictation software. Please excuse any grammatical, word or spelling errors.
--- NOTE | 2024-03-27 13:05 | P.PN ---
Subjective Progress Note Date: 03/27/24 Principal diagnosis: Reason for follow-up is acute gangrenous cholecystitis and leukocytosis Patient is a 64-year-old male with a past medical history significant for hypertension reflux osteoarthritis admitted to hospital with right upper quad abdominal pain has been diagnosed with acute gangrenous cholecystitis status post open cholecystectomy. On today's evaluation that is 03/27/2024,the patient remains to be afebrile, patient is on room air not requiring supplemental oxygen and denies any shortness of breath no chest pain or cough.Patient denies having any nausea or vomiting, abdominal pain slightly decreased intensity did have some diarrhea Andrew catheter has been discontinued. Patient white count is down to 11.30, creatinine is 0.6 blood cultures so far negative Objective - Vital Signs Vital signs: Vital Signs Temp 98.4 F 03/27/24 07:30 Pulse 92 03/27/24 07:30 Resp 17 03/27/24 07:30 BP 157/95 03/27/24 07:30 Pulse Ox 96 03/27/24 07:30 FiO2 Intake & Output 03/26/24 03/27/24 03/27/24 18:59 06:59 18:59 Intake Total 250 250 Output Total 1335 1330 50 Balance -1085 -1330 200 Intake: Oral 250 250 Output: Drainage 35 30 50 Right Abdomen 35 30 50 Urine 1300 1300 Other: Voiding Method Urinal # Voids 1 # Bowel Movements 2 2 1 ABP, PAP, CO, CI - Last Documented Arterial Blood Pressure 154/73 - Exam GENERAL DESCRIPTION: Middle-age y male lying in bed in no distress RESPIRATORY SYSTEM: Unlabored breathing , decreased breath sounds at bases HEART: S1 S2 regular rate and rhythm , ABDOMEN: Soft , mild tenderness EXTREMITIES: No edema feet - Labs CBC & Chem 7: 03/27/24 02:53 03/27/24 02:53 Labs: Abnormal Lab Results - Last 24 Hours (Table) 03/27/24 03/27/24 Range/Units 02:53 02:53 WBC 11.30 H (4.50-10.00) X 10*3/uL RBC 2.98 L (4.40-5.60) X 10*6/uL Hgb 8.5 L (13.0-17.0) g/dL Hct 26.0 L (39.6-50.0) % Plt Count 463 H (140-440) X 10*3/uL MPV 8.9 L (9.5-12.2) FL Neutrophils # (Manual) 7.91 H (1.80-7.70) X 10*3/uL Monocytes # (Manual) 1.02 H (0.20-1.00) X 10*3/uL Basophils # (Manual) 0.23 H (0.00-0.10) X 10*3/uL Sodium 134 L (135-145) mmol/L Potassium 3.3 L (3.5-5.5) mmol/L BUN 5.3 L (9.0-27.0) mg/dL BUN/Creatinine Ratio 8.83 L (12.00-20.00) Ratio Calcium 7.8 L (8.7-10.3) mg/dL Total Bilirubin 0.2 L (0.3-1.2) mg/dL AST 40 H (14-35) U/L Alkaline Phosphatase 135 H (41-126) U/L Total Protein 5.1 L (6.2-8.2) g/dL Albumin 2.8 L (3.8-4.9) g/dL Albumin/Globulin Ratio 1.22 L (1.60-3.17) Ratio Assessment and Plan (1) Acute cholecystitis Current Visit: Yes Status: Acute Code(s): K81.0 - ACUTE CHOLECYSTITIS SNOMED Code(s): 11070873 (2) Sepsis Current Visit: Yes Status: Acute Code(s): A41.9 - SEPSIS, UNSPECIFIED ORGANISM SNOMED Code(s): 39265684 Plan: 1patient presented to hospital with sepsis in this patient who did have fever elevated white count mild tachycardia meeting criteria for SIRS source is acute gangrenous cholecystitis status post open cholecystectomy and will need to cover for the enteric gram-negative to be the likely pathogen unfortunately no OR cultures were done. 2patient is afebrile and the patient white count is down to 11,000 blood culture has been negative so far no OR culture we will continue Zosyn while inpatient and finish therapy with a short course of oral Ceftin and Flagyl on discharge prescription sent to the pharmacy Dictation was produced using [employer] dictation software. please excuse any grammatical, word or spelling errors. Time with Patient: Less than 30
--- NOTE | 2024-03-27 14:18 | P.PN ---
Subjective Progress Note Date: 03/27/24 SURGICAL PROGRESS NOTE CHIEF COMPLAINT: Gangrenous calculus cholecystitis HISTORY OF PRESENT ILLNESS: Patient is postop day #5 attempted laparoscopic cholecystectomy converted to open. Patient sitting at bedside chair. He is having bowel movements. His pain is controlled. He has been up and ambulating. Afebrile. WBC trending down from 12-11.3 Hgb 8.5 potassium 3.3 total bili 0.2 AST 40 ALT 46 and alk phos 135 PHYSICAL EXAM: VITAL SIGNS: Reviewed. GENERAL: Well-developed in no acute distress. ABDOMEN: Soft. Nondistended. Incisional dressing clean dry and intact. SYLVIE drain 50 mL serosanguineous output NEUROLOGIC: Alert and oriented. Cranial nerves II through XII grossly intact. ASSESSMENT: 1. Acute gangrenous calculus cholecystitis 2. Hypokalemia PLAN: -Replace potassium -Advance diet to regular -Encourage patient to ambulate -Antibiotics per ID service -GI prophylaxis Protonix and DVT prophylaxis subcu heparin Physician Gas Blender note has been reviewed by physician. Signing provider agrees with the documented findings, assessment, and plan of care. I have personally seen and examined the patient, reviewed the CELL COVERER /PAs history, exam and MDM and agree with the assessment and plan as written. Based on total visit time, I have performed more than 50% of the visit. As above: Patient feels relatively well. Discomfort mild at this time. He is afebrile. White blood cell count improved. Hemoglobin 8.5. SYLVIE remains serous. Advance to regular diet. Check CBC tomorrow. Anticipate discharge tomorrow with drain removal. Change dressing prior to discharge. Objective - Vital Signs Vital signs: Vital Signs Temp 98.4 F 03/27/24 07:30 Pulse 92 03/27/24 07:30 Resp 17 03/27/24 07:30 BP 157/95 03/27/24 07:30 Pulse Ox 96 03/27/24 07:30 FiO2 Intake & Output 03/26/24 03/27/24 03/27/24 18:59 06:59 18:59 Intake Total 250 250 Output Total 1335 1330 50 Balance -1085 -1330 200 Intake: Oral 250 250 Output: Drainage 35 30 50 Right Abdomen 35 30 50 Urine 1300 1300 Other: Voiding Method Urinal # Voids 1 # Bowel Movements 2 2 1 ABP, PAP, CO, CI - Last Documented Arterial Blood Pressure 154/73 - Labs CBC & Chem 7: 03/27/24 02:53 03/27/24 02:53 Labs: Abnormal Lab Results - Last 24 Hours (Table) 03/27/24 03/27/24 Range/Units 02:53 02:53 WBC 11.30 H (4.50-10.00) X 10*3/uL RBC 2.98 L (4.40-5.60) X 10*6/uL Hgb 8.5 L (13.0-17.0) g/dL Hct 26.0 L (39.6-50.0) % Plt Count 463 H (140-440) X 10*3/uL MPV 8.9 L (9.5-12.2) FL Neutrophils # (Manual) 7.91 H (1.80-7.70) X 10*3/uL Monocytes # (Manual) 1.02 H (0.20-1.00) X 10*3/uL Basophils # (Manual) 0.23 H (0.00-0.10) X 10*3/uL Sodium 134 L (135-145) mmol/L Potassium 3.3 L (3.5-5.5) mmol/L BUN 5.3 L (9.0-27.0) mg/dL BUN/Creatinine Ratio 8.83 L (12.00-20.00) Ratio Calcium 7.8 L (8.7-10.3) mg/dL Total Bilirubin 0.2 L (0.3-1.2) mg/dL AST 40 H (14-35) U/L Alkaline Phosphatase 135 H (41-126) U/L Total Protein 5.1 L (6.2-8.2) g/dL Albumin 2.8 L (3.8-4.9) g/dL Albumin/Globulin Ratio 1.22 L (1.60-3.17) Ratio
[2024-03-27] MEDS: POTASSIUM CHLORIDE ER 20 MEQ TAB.ER PO STA (15:33)
--- NOTE | 2024-03-28 04:26 | PN ---
PROGRESS NOTE DATE OF SERVICE: 03/27/2024 SUBJECTIVE: A 64-year-old white male, status post cholecystectomy and was found to have community- acquired pneumonia also, possible aspiration pneumonia. The patient's home medicines have been started. He is on Zosyn, azithromycin as well as aspiration pneumonia. His labs show white count is down from 12.4 to 11.3. Hemoglobin is 8.5. OBJECTIVE: CARDIOVASCULAR: S1, S2. LUNGS: Transmitted upper sounds. GI: Soft. HEMATOLOGY: Negative Homans. PSYCH: Fair mood and affect. NEUROLOGIC: Alert and oriented x3. ASSESSMENT: Status post cholecystectomy, aspiration pneumonia. Home medicines will be given. Possible discharge home tomorrow as the patient continues to improve with Surgery seeing him tomorrow prior to discharge. MMODL / IJN: [id number] /
[2024-03-28 08:39] LABS: BUN/Creat Ratio <5.83 Ratio (12.00-20.00); Blood Urea Nitrogen <3.5 mg/dL (9.0-27.0); Calcium 8.1 mg/dL (8.7-10.3); Chloride 104 mmol/L (96-109); Glucose 106 mg/dL (70-110); Potassium 3.4 mmol/L (3.5-5.5); Sodium 138 mmol/L (135-145)
[2024-03-28 09:23] LABS: Band Neutrophils % 4 %; Basophils # (M) 0 X 10*3/uL (0.00-0.10); Eosinophils # (M) 0.33 X 10*3/uL (0.04-0.35); HCT 28.9 % (39.6-50.0); HGB 9.3 g/dL (13.0-17.0); Lymphocytes # (M) 1.76 X 10*3/uL (0.90-5.00); MCH 28.4 pg (27.0-32.0); MCHC 32.2 g/dL (32.0-37.0); MCV 88.1 FL (80.0-97.0); Mean Platelet Volume 8.9 FL (9.5-12.2); Metamyelocytes % 1 % (0-0); Monocytes # (M) 0.66 X 10*3/uL (0.20-1.00); Myelocytes % 7 % (0-0); NRBC Per 100 WBC 0 X 10*3/uL (0.00-0.01); Neutrophils # (M) 7.36 X 10*3/uL (1.80-7.70); Neutrophils % (M) 63 %; Platelet Count 484 X 10*3/uL (140-440); RBC 3.28 X 10*6/uL (4.40-5.60); RDW 13.4 % (11.5-14.5); WBC 10.98 X 10*3/uL (4.50-10.00)
[2024-03-28 09:27] VITALS: RESP 17
--- NOTE | 2024-03-28 11:04 | P.PN ---
Subjective Progress Note Date: 03/28/24 03/23/2024, the patient is being seen for a consultation in the intensive care unit. The patient had a complicated cholecystectomy yesterday for an acute gangrenous cholecystitis. Initially, the procedure was attempted to be laparoscopic and it was converted to open. The patient during the procedure enc ountered a laceration of the portal vein that was clamped. The area was inspected by vascular surgery and the bleeding was essentially controlled. Ultimately, the wound was closed in a SYLVIE drain was placed and the patient was transferred to the to the intensive care unit after being extubated. Estimated blood loss was 300 cc. This morning, the patient is awake and alert. Denies having any nausea vomiting or abdominal pain. The white cell count dropped from 21 down to 17. The hemoglobin is currently at 10.1. Sodium levels at 131, BUN is 9 with a creatinine of 0.5. LFTs show an AST of 56, ALT of 56, alkaline phosphatase of 73. Amylase and lipase are within normal limits. The chest x- ray from 03/22/2024 showed no acute cardiopulmonary process and the patient has a right IJ triple-lumen catheter in place. The patient is currently on IV Zosyn. The patient is also on normal citrate of 75 cc an hour. Dilaudid for pain control. Sinus rhythm. No other significant events overnight. Patient is currently postop day #1. 03/24/2024, the patient is doing well. He is on room air oxygen. No signs of any septicemia the patient remains on IV Zosyn. The white cell count is at 18.7. Hemoglobin is 9.8. Tolerating diet. Passing flatus. Ambulating. SYLVIE drain is serosanguineous. On 03/25/2024, the patient has some limited abdominal distention. No significant abdominal pain. He is postop day #3. White cell count remains elevated at 18.7 and the patient is still on IV Zosyn. He is on clear liquid diet. Passing flatus. General surgery on the case. Encountered urinary rete ntion and a Andrew catheter was also inserted by urology. No fever. He was having some nausea last night and currently is free of any nausea. Urine output is adequate for now. The patient is seen today March 26, 2024 in follow-up on the regular medical floor. He is currently sitting up in a chair at the bedside. Awake and alert in no acute distress. Maintaining good O2 saturations in the 90s on room air. Working well with the incentive spirometer. Continued on Zosyn and azithromycin. Andrew catheter remains in place secondary to urinary retention. White count 12.4. Hemoglobin 8.6. Platelets 426. Sodium 136. Potassium 3.5. Bicarb 22. BUN 11. Creatinine 0.5. Glucose 85. CT scan of the chest reveals bibasilar partially consolidated infiltrates with small effusions left greater than right. The patient is seen today March 27, 2024 in follow-up on the regular medical floor. He is currently up in a chair at the bedside. Awake and alert in no acute distress. Maintaining O2 saturations in the mid 90s on room air. Working well with the incentive spirometer. He is continued on Zosyn and azithromycin per ID service. Heparin for DVT prophylaxis. Blood cultures revealed no growth. White count 11.3. Hemoglobin 8.5. Platelets 463. Sodium 134. Potassium 3.3. Bicarb 23. BUN 5. Creatinine 0.6. Glucose 94. Alk phos 135. The patient is seen today March 28, 2024 in follow-up on the regular medical floor. He is awake and alert in no acute distress. Resting comfortably in bed. Denies any shortness of breath, cough or congestion. Maintaining good O2 saturations in the 90s on room air. Working well with the incentive spirometer. Blood culture revealed no growth. White count 10.9. Hemoglobin 9.3. Platelets 44. Sodium 138. Potassium 3.4. Bicarb 24. BUN 4. Creatinine 0.6. Glucose 106. Remains on Zosyn. Heparin for DVT prophylaxis. Normal saline at 75 mL/h. Objective - Vital Signs Vital signs: Vital Signs Temp 97.6 F 03/28/24 08:00 Pulse 92 03/28/24 08:00 Resp 17 03/28/24 08:00 BP 151/82 03/28/24 08:00 Pulse Ox 96 03/28/24 08:00 FiO2 Intake & Output 03/27/24 03/28/24 03/28/24 18:59 06:59 18:59 Intake Total 370 Output Total 50 45 Balance 320 -45 Intake: Oral 370 Output: Drainage 50 45 Right Abdomen 50 45 Other: Voiding Method Urinal # Voids 1 2 # Bowel Movements 2 ABP, PAP, CO, CI - Last Documented Arterial Blood Pressure 154/73 - Exam GENERAL EXAM: Alert, 64-year-old male, on room air, comfortable in no apparent distress. HEAD: Normocephalic. EYES: Normal reaction of pupils, equal size. NOSE: Clear with pink turbinates. THROAT: No erythema or exudates. NECK: No masses, no JVD. CHEST: No chest wall deformity. LUNGS: Equal air entry with no crackles, wheeze, rhonchi or dullness. CVS: S1 and S2 normal with no audible murmur, regular rhythm. ABDOMEN: Dressing dry and intact. SYLVIE drain in place with serous fluid returned. No hepatosplenomegaly, normal bowel sounds, no guarding or rigidity. SPINE: No scoliosis or deformity SKIN: No rashes CENTRAL NERVOUS SYSTEM: No focal deficits, tone is normal in all 4 extremities. EXTREMITIES: There is no peripheral edema. No clubbing, no cyanosis. Peripheral pulses are intact. - Labs CBC & Chem 7: 03/28/24 03:04 03/28/24 03:04 Labs: Abnormal Lab Results - Last 24 Hours (Table) 03/28/24 03/28/24 Range/Units 03:04 03:04 WBC 10.98 H (4.50-10.00) X 10*3/uL RBC 3.28 L (4.40-5.60) X 10*6/uL Hgb 9.3 L (13.0-17.0) g/dL Hct 28.9 L (39.6-50.0) % Plt Count 484 H (140-440) X 10*3/uL MPV 8.9 L (9.5-12.2) FL Potassium 3.4 L (3.5-5.5) mmol/L BUN <3.5 L (9.0-27.0) mg/dL BUN/Creatinine Ratio <5.83 L (12.00-20.00) Ratio Calcium 8.1 L (8.7-10.3) mg/dL Microbiology - Last 24 Hours (Table) 03/22/24 15:17 Blood Culture - Final Blood Assessment and Plan Assessment: Acute gangrenous cholecystitis and the patient had a open cholecystectomy the patient is postop day # 5. Patient encountered portal vein laceration and bleed that was clamped and sutured and bleeding has been controlled. SYLVIE drain is in place and the output is serosanguineous and the patient is hemodynamically sta ble, currently on IV Zosyn and completed azithromycin. Abdominal pain secondary to above Acute leukocytosis, white cell count remains elevated Hypertension Osteoarthritis Acid reflux Urinary retention, requiring Andrew catheter insertion Plan: The patient was seen and evaluated Labs and medications reviewed Stable and on room air Working well with the incentive spirometer Plan is for Ceftin and Flagyl at discharge Home once cleared by surgical services This patient was seen independently by the pulmonary nurse practitioner addressing pulmonary issues I have personally seen and examined the patient, performed the documentation and the assessment and plan as written. Number of minutes spent on the visit: 24 Dictation was produced using [employer] dictation software. Please excuse any grammatical, word or spelling errors.
--- NOTE | 2024-03-28 12:30 | P.PN ---
Subjective Progress Note Date: 03/28/24 SURGICAL PROGRESS NOTE CHIEF COMPLAINT: Gangrenous calculus cholecystitis HISTORY OF PRESENT ILLNESS: Patient is postop day #6 attempted laparoscopic cholecystectomy converted to open. Patient's pain is controlled. He is tolerating diet. SYLVIE drain with serosanguineous output 45 mL. Afebrile. WBC is down from 11.3-10.9 hemoglobin 8.5 up to 9.3 potassium 3.4 and being replaced PHYSICAL EXAM: VITAL SIGNS: Reviewed. GENERAL: Well-developed in no acute distress. ABDOMEN: Soft. Nondistended. Incisional dressing clean dry and intact. NEUROLOGIC: Alert and oriented. Cranial nerves II through XII grossly intact. ASSESSMENT: 1. Acute gangrenous calculus cholecystitis 2. Hypokalemia PLAN: -Patient can be discharge from surgical standpoint -SYLVIE drain to be removed before discharge -Remove Optifoam silver dressing -Patient can shower -Antibiotics per ID service Physician Family Services Worker note has been reviewed by physician. Signing provider agrees with the documented findings, assessment, and plan of care. Objective - Vital Signs Vital signs: Vital Signs Temp 97.6 F 03/28/24 08:00 Pulse 92 03/28/24 08:00 Resp 17 03/28/24 08:00 BP 151/82 03/28/24 08:00 Pulse Ox 96 03/28/24 08:00 FiO2 Intake & Output 03/27/24 03/28/24 03/28/24 18:59 06:59 18:59 Intake Total 370 Output Total 50 45 Balance 320 -45 Intake: Oral 370 Output: Drainage 50 45 Right Abdomen 50 45 Other: Voiding Method Urinal # Voids 1 2 # Bowel Movements 2 ABP, PAP, CO, CI - Last Documented Arterial Blood Pressure 154/73 - Labs CBC & Chem 7: 03/28/24 03:04 03/28/24 03:04 Labs: Abnormal Lab Results - Last 24 Hours (Table) 03/28/24 03/28/24 Range/Units 03:04 03:04 WBC 10.98 H (4.50-10.00) X 10*3/uL RBC 3.28 L (4.40-5.60) X 10*6/uL Hgb 9.3 L (13.0-17.0) g/dL Hct 28.9 L (39.6-50.0) % Plt Count 484 H (140-440) X 10*3/uL MPV 8.9 L (9.5-12.2) FL Potassium 3.4 L (3.5-5.5) mmol/L BUN <3.5 L (9.0-27.0) mg/dL BUN/Creatinine Ratio <5.83 L (12.00-20.00) Ratio Calcium 8.1 L (8.7-10.3) mg/dL Microbiology - Last 24 Hours (Table) 03/22/24 15:17 Blood Culture - Final Blood
--- NOTE | 2024-03-28 12:30 | P.ANPRN ---
Procedure Note - Anesthesia - Invasive Line Right Central Line Time Out Performed: Yes Date of Procedure: 03/22/24 Time of Procedure: 19:08 Location of Patient: OR Preparation: Sterile Prep, Sterile Dressing Central Line Location: Internal Jugular Ultrasound Used: No Purpose - Visualization and Identification of Vasculature: No Image Stored and Saved: No Narrative: Invasive line placement per sterile protocol utilized.
[2024-03-28] MEDS: POTASSIUM CHLORIDE ER 20 MEQ TAB.ER PO STA (13:20)
[2024-03-28 15:29] VITALS: BP 153/88; PULSE 91; TEMP 98.4
--- NOTE | 2024-03-29 05:06 | DS ---
DISCHARGE SUMMARY DISCHARGE MEDICATIONS: 1. Ceftin 500 b.i.d. 2. Flagyl 500 t.i.d. 3. Loleta 7.5 b.i.d. p.r.n. 4. Omeprazole 20 b.i.d. 5. Flexeril 10 at night. 6. Lisinopril 20 daily. 7. Cymbalta 60 at bedtime. 8. Systane eye drops daily. 9. Airsupra inhaler 2 puffs q.4h p.r.n. 10.Prilosec 20 mg b.i.d. CONDITION: Stable. PROGNOSIS: Guarded. Ambulate as tolerated. White count on discharge is 10.98, down from 18.75 on the 10th. Hemoglobin is up from 8.5, now up to 9.3. Sodium 138, potassium 3.4, calcium is 8.1. Urine red cells 23, 4+ ketones. The patient is greatly improved from medical standpoint. Andrew catheter will be removed. Blood cultures are negative. The patient was treated for acute cholecystitis, had open cholecystectomy for gangrenous gallbladder. He was found to have community-acquired pneumonia, started on broad-spectrum antibiotics, at which time, he was sent home on 2 antibiotics. Follow up as an outpatient. His eduardo in his wound looked stable on discharge. It is about 25 eduardo across the right upper quadrant for an open cholecystectomy. Medically, he appears to be stable. He is breathing fine. His vitals appeared good at this time. Please see further orders. MMODL / IJN: [id number] /
--- NOTE | 2024-03-29 12:44 | P.PN ---
Subjective Progress Note Date: 03/28/24 Principal diagnosis: Reason for follow-up is acute gangrenous cholecystitis and leukocytosis Patient is a 64-year-old male with a past medical history significant for hypertension reflux osteoarthritis admitted to hospital with right upper quad abdominal pain has been diagnosed with acute gangrenous cholecystitis status post open cholecystectomy. On today's evaluation that is 03/28/2024, the patient continues to be afebrile, the patient is on room air and breathing comfortably, the Pt denies having any chest pain or cough, the patient abdominal pain has decreased intensity, no nausea or vomiting still having some diarrhea but denies any worsening. Patient white count is down to 10.98, creatinine 0.6 blood culture has been negative Objective - Vital Signs Vital signs: Vital Signs Temp 97.6 F 03/28/24 08:00 Pulse 92 03/28/24 08:00 Resp 17 03/28/24 08:00 BP 151/82 03/28/24 08:00 Pulse Ox 96 03/28/24 08:00 FiO2 Intake & Output 03/27/24 03/28/24 03/28/24 18:59 06:59 18:59 Intake Total 370 Output Total 50 45 Balance 320 -45 Intake: Oral 370 Output: Drainage 50 45 Right Abdomen 50 45 Other: Voiding Method Urinal # Voids 1 2 # Bowel Movements 2 ABP, PAP, CO, CI - Last Documented Arterial Blood Pressure 154/73 - Exam GENERAL DESCRIPTION: Middle-age y male lying in bed in no distress RESPIRATORY SYSTEM: Unlabored breathing , decreased breath sounds at bases HEART: S1 S2 regular rate and rhythm , ABDOMEN: Soft , mild tenderness EXTREMITIES: No edema feet - Labs CBC & Chem 7: 03/28/24 03:04 03/28/24 03:04 Labs: Abnormal Lab Results - Last 24 Hours (Table) 03/28/24 03/28/24 Range/Units 03:04 03:04 WBC 10.98 H (4.50-10.00) X 10*3/uL RBC 3.28 L (4.40-5.60) X 10*6/uL Hgb 9.3 L (13.0-17.0) g/dL Hct 28.9 L (39.6-50.0) % Plt Count 484 H (140-440) X 10*3/uL MPV 8.9 L (9.5-12.2) FL Potassium 3.4 L (3.5-5.5) mmol/L BUN <3.5 L (9.0-27.0) mg/dL BUN/Creatinine Ratio <5.83 L (12.00-20.00) Ratio Calcium 8.1 L (8.7-10.3) mg/dL Microbiology - Last 24 Hours (Table) 03/22/24 15:17 Blood Culture - Final Blood Assessment and Plan (1) Acute cholecystitis Status: Acute Code(s): K81.0 - ACUTE CHOLECYSTITIS SNOMED Code(s): 50780239 (2) Sepsis Status: Acute Code(s): A41.9 - SEPSIS, UNSPECIFIED ORGANISM SNOMED Code(s): 25437482 Plan: 1patient presented to hospital with sepsis in this patient who did have fever elevated white count mild tachycardia meeting criteria for SIRS source is acute gangrenous cholecystitis status post open cholecystectomy and will need to cover for the enteric gram-negative to be the likely pathogen unfortunately no OR cultures were done. 2patient is afebrile and the patient white count is down to 10,000 blood culture has been negative patient will finish therapy with oral Ceftin and Flagyl prescription has been sent to the pharmacy and close the patient follow- up Dictation was produced using [employer] dictation software. please excuse any grammatical, word or spelling errors. Time with Patient: Less than 30
--- NOTE | 2024-04-01 06:38 | PN ---
PROGRESS NOTE ADDENDUM: He has had sepsis present on admission. (Please add that). MMODL / IJN: [id number] /
--- NOTE | 2024-04-01 19:31 | CDI ---
Documentation Clarification Form Date: 04/01/2024 07:24:10 PM From: Esperanza Tapia Phone: Admit Date: 03/22/2024 11:47:00 AM Patient Name: Brian Miller Visit Number: [id number] Discharge Date: 03/28/2024 02:34:00 PM ATTENTION: The Clinical Documentation Specialists (CDI) and [facility] Coding Staff appreciate your assistance in clarifying documentation. Please respond to the clarification below the line at the bottom and electronically sign. The CDI & [facility] Coding staff will review the response and follow-up if needed. Please note: Queries are made part of the Legal Health Record. If you have any questions, please contact the author of this message via ITS. Doctor/Provider: Tim Rodriguez The final diagnosis of the pathology report states Severe acute and chronic cholecystitis with ulceration and. Coding guidelines do not allow coding professionals to code based on pathology results; therefore, clarification is requested. History/risk factors: 64yo M, sepsis, HTN, OA, GERD, gangrenous cholecystitis, hydrops Clinical Indicators: Dusky red-purple gallbladder that has been previously bivalve and is re-approximated to 11.5 x 4.5 x3.5 cm. The mucosa is dusky purple-red andulcerated. The wall is fibrous and averages 0.6 cm thick. Cysticduct is patent. Separate within the container are multiple irregular shaped yellow-browncalculiranging from 0.7 to 1.3 cm in greatest dimension. 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 [ ] Unable to determine (Template Last Revised: July 2020) MTDD
--- NOTE | 2024-04-09 11:57 | CDI ---
Documentation Clarification Form Date: 04/09/2024 11:51:43 AM From: Esperanza Tapia Phone: Admit Date: 03/22/2024 11:47:00 AM Patient Name: Brian Miller Visit Number: [id number] Discharge Date: 03/28/2024 02:34:00 PM ATTENTION: The Clinical Documentation Specialists (CDI) and [facility] Coding Staff appreciate your assistance in clarifying documentation. Please respond to the clarification below the line at the bottom and electronically sign. The CDI & [facility] Coding staff will review the response and follow-up if needed. Please note: Queries are made part of the Legal Health Record. If you have any questions, please contact the author of this message via ITS. Doctor/Provider: Hollis Iglesias The final diagnosis of the pathology report states severeacute and chronic cholecystitiswithulceration. Coding guidelines do not allow coding professionals to code based on pathology results; therefore, clarification is requested. History/risk factors: 64yo M,sepsis,HTN,OA,GERD,gangrenous cholecystitis, hydrops Clinical Indicators: Dusky red-purple gallbladder that has been previously bivalve and is re-approximated to 11.5 x 4.5 x3.5 cm. The mucosa is dusky purple-red andulcerated. The wall is fibrous and averages 0.6 cm thick. Cysticduct is patent. Separate within the container are multiple irregular shaped yellow-browncalculiranging from 0.7 to 1.3 cm in greatest dimension. Treatment:Attempted laparoscopic cholecystectomy converted to open Please clarify if you agree with the pathology report diagnosis of Severeacute and chronic cholecystitiswithulceration: [ X] Yes [ ] No [ ] Other (please specify) ___ [ ] Unable to determine (Template LastRevised: July 2020) MTDD
== END 2024-03-28 14:34 | disposition home or self-care (01) | DRG 853 ==
LOC: EC 10:01 → 5NMEDONC 11:47 → 2SICU 18:59 → 4SSUR 03-23 18:08
PROVIDERS: ADMIT Family Medicine; ATTEND Family Medicine
PROC: 0FJ44ZZ Inspection of Gallbladder, Percutaneous Endoscopic Approach (ICD-10-PCS; 2024-03-22)
PROC: 0W3G0ZZ Control Bleeding in Peritoneal Cavity, Open Approach (ICD-10-PCS; 2024-03-22)
PROC: 0FT40ZZ Resection of Gallbladder, Open Approach (ICD-10-PCS; principal; 2024-03-22 08:00)
PROC: 0T9B70Z Drainage of Bladder with Drainage Device, Via Natural or Artificial Opening (ICD-10-PCS; 2024-03-23)
DX: A41.9 Sepsis, unspecified organism (principal); J18.9 Pneumonia, unspecified organism; J69.0 Pneumonitis due to inhalation of food and vomit; S35.31 Injury of portal vein; K91.61 Intraoperative hemorrhage and hematoma of a digestive system organ or structure complicating a digestive system procedure; K82.1 Hydrops of gallbladder; K80.12 Calculus of gallbladder with acute and chronic cholecystitis without obstruction; K82.A1 Gangrene of gallbladder in cholecystitis; J44.89 Other specified chronic obstructive pulmonary disease; I10 Essential (primary) hypertension; F32.A Depression, unspecified; K66.0 Peritoneal adhesions (postprocedural) (postinfection); R33.9 Retention of urine, unspecified; E87.6 Hypokalemia; K82.8 Other specified diseases of gallbladder; K21.9 Gastro-esophageal reflux disease without esophagitis; M19.071 Primary osteoarthritis, right ankle and foot; Y83.8 Other surgical procedures as the cause of abnormal reaction of the patient, or of later complication, without mention of misadventure at the time of the procedure; Z53.31 Laparoscopic surgical procedure converted to open procedure; Z87.891 Personal history of nicotine dependence; Z79.899 Other long term (current) drug therapy
CPT/HCPCS: 36415; 36600; 71045; 71250; 76705; 80048; 80053; 81001; 82150; 83605; 83690; 85025; 86850; 86900; 86901; 86920; 87040; 88304; 93005; 94640; 96361; 96365; 96372; 96375; 99285